=== PATIENT | female | born 1955 | race Caucasian/White ===

== ENCOUNTER 2019-02-23 12:53 | Outpatient (REF) | payer OTHER, SELFPAY ==
--- NOTE | 2019-02-23 12:15 | PAPFT_PTH ---
PATIENT: lGadys Vyas LOC: NCN #:[id number] AGE/SX: 63/F ROOM: RE02/23/[address]: Denise Nugent : 1955 BED: DIS: 02/23/2019 SPEC #: [id number] RECD: 02/24/19 12:51 STATUS: FERCHO CANO #: [id number] SANDRITA: 02/23/19 12:[address]: Denise Nugent DEPT: [facility] [place] Cytology RECD BY: Symone Tapia Tissues: 1 - CX/ENDOCX FOR PAP SMEARS Procedures: PAP THIN PREP/UVM Screening HPV DNA PROBE Comments: [id number]
[2019-02-23 22:25] LABS: Hemoglobin A1C 6.1 % (4.5-6.2)
[2019-02-23 22:34] LABS: ALT 53 U/L (12-78); AST 43 U/L (15-37); Alkaline Phosphatase 103 U/L (46-116); Anion Gap 11.1 mmol/L (3-11); BUN 13 mg/dL (7-18); CO2 27.9 mmol/L (21.0-32.0); CREATININE 0.84 mg/dL (0.55-1.02); Chloride 103 mmol/L (98-107); Cholesterol 315 mg/dL (50-200); Glucose 89 mg/dL (70-100); HDL Cholesterol 67 mg/dL (40-60); LDL CHOLESTEROL 216 mg/dL (<100); Potassium 3.8 mmol/L (3.5-5.1); Sodium 142 mmol/L (136-145); Total Protein 7.7 g/dL (6.4-8.2); Triglyceride 93 mg/dL (30-150)
[2019-02-23 22:40] LABS: Calcium 9.1 mg/dL (8.5-10.1)
== END 2019-02-23 13:13 ==
LOC: NCHCN 12:53
PROVIDERS: PCP Nurse Practitioner Family; Visit Provider Nurse Practitioner Family
DX: R73.01 Impaired fasting glucose (principal); F41.9 Anxiety disorder, unspecified; R07.9 Chest pain, unspecified; Z00.00 Encounter for general adult medical examination without abnormal findings; I10 Essential (primary) hypertension; R60.9 Edema, unspecified; R20.2 Paresthesia of skin; R82.90 Unspecified abnormal findings in urine; Z12.4 Encounter for screening for malignant neoplasm of cervix; Z11.51 Encounter for screening for human papillomavirus (HPV); Z01.419 Encounter for gynecological examination (general) (routine) without abnormal findings
CPT/HCPCS: 80053; 80061; 83721; 88142; 83036; 87624

== ENCOUNTER 2019-04-13 09:01 | Outpatient (REF) | payer OTHER, SELFPAY ==
[2019-04-13 21:33] LABS: Anion Gap 8.9 mmol/L (3-11); BUN 11 mg/dL (7-18); CO2 27.1 mmol/L (21.0-32.0); CREATININE 0.73 mg/dL (0.55-1.02); Calcium 8.8 mg/dL (8.5-10.1); Calculated LDL 101 mg/dL; Chloride 108 mmol/L (98-107); Cholesterol 182 mg/dL (50-200); Glucose 98 mg/dL (70-100); HDL Cholesterol 66 mg/dL (40-60); Potassium 4.1 mmol/L (3.5-5.1); Sodium 144 mmol/L (136-145); Triglyceride 77 mg/dL (30-150)
[2019-04-14 14:28] LABS: ALT 65 U/L (12-78); AST 37 U/L (15-37); Alkaline Phosphatase 98 U/L (46-116); Bilirubin, Direct 0.24 mg/dL (0.00-0.20); Bilirubin, Total 1.2 mg/dL (0.2-1.0); Total Protein 7.3 g/dL (6.4-8.2)
== END 2019-04-13 09:21 ==
LOC: NCHCN 09:01
PROVIDERS: PCP Nurse Practitioner Family; Visit Provider Nurse Practitioner Family
DX: Z00.00 Encounter for general adult medical examination without abnormal findings (principal); I10 Essential (primary) hypertension; E78.5 Hyperlipidemia, unspecified; R73.01 Impaired fasting glucose; E88.81 Metabolic syndrome and other insulin resistance
CPT/HCPCS: 80048; 80061; 80076; 83721

== ENCOUNTER 2019-05-16 23:05 | Outpatient (REF) | payer OTHER, SELFPAY ==
[2019-05-16 22:39] LABS: ALT 50 U/L (12-78); AST 26 U/L (15-37); Albumin 3.9 g/dL (3.4-5.0); Alkaline Phosphatase 110 U/L (46-116); Bilirubin, Direct 0.21 mg/dL (0.00-0.20); Bilirubin, Total 0.9 mg/dL (0.2-1.0); Total Protein 7.1 g/dL (6.4-8.2)
== END 2019-05-16 23:25 ==
LOC: NCHCN 23:05
PROVIDERS: PCP Nurse Practitioner Family; Visit Provider Nurse Practitioner Family
DX: R94.5 Abnormal results of liver function studies (principal)
CPT/HCPCS: 80076

== ENCOUNTER 2019-05-29 00:39 | Outpatient (CLI) | payer OTHER, SELFPAY ==
--- NOTE | 2019-05-29 07:44 | DI.MAMMO_ITS ---
SYMPTOM/DIAGNOSIS: SCREENING Z13.9 MAMMOGRAM: Mammograms were interpreted according to the usual protocol including computer analysis with CAD system, tomosynthesis and C view imaging. The breasts are of moderate density with fairly symmetrical distribution of fibroglandular tissue. No dominant mass or clumped microcalcification is identified in either breast. Vaguely nodular areas of asymmetric density are seen in the upper outer quadrant of each breast and appear unchanged in comparison with multiple previous studies including April 2018. No new mass or clumped microcalcification is seen. CONCLUSION: No specific evidence of malignancy at this time. Routine screening examinations are suggested at yearly intervals in this age group according to the ACS/ACR guidelines. Category 1, breast density category B. MQSA ASSESSMENT OF FINDINGS: Negative. Category 1. Patient will receive a letter notifying them of these results. BI-RADS category B. There are scattered areas of fibroglandular density.
== END 2019-05-29 00:59 ==
PROVIDERS: PCP Nurse Practitioner Family; Visit Provider Nurse Practitioner Family
DX: Z12.31 Encounter for screening mammogram for malignant neoplasm of breast (principal)
CPT/HCPCS: 77063; 77067

== ENCOUNTER 2019-08-22 09:31 | Outpatient (REF) | payer OTHER, SELFPAY ==
[2019-08-22 12:23] LABS: Abs Immature Grans 0.01 k/cumm (0.0-0.09); Absolute Basophil Count 0.02 k/cumm (0.0-0.2); Absolute Eosinophil Count 0.12 k/cumm (0.0-0.7); Absolute Lymphocyte Count 1.44 k/cumm (1.2-3.4); Absolute Monocyte Count 0.31 k/cumm (0.11-0.7); Absolute Neutrophil Count 2.92 k/cumm (1.2-6.7); Basophils % 0.4; Eosinophils % 2.5; HCT 42.9 % (36.0-46.0); HGB 13.8 g/dL (12.0-15.5); Immature Grans % 0.2; Lymphocytes % 29.9; Mean Corp. HGB Concentration 32.2 g/dL (32.0-36.0); Mean Corpuscular Hemoglobin 28.8 pg (27.0-33.0); Mean Corpuscular Volume 89.6 fL (80-95); Mean Platelet Volume 9.5 fL (8.0-11.0); Monocytes % 6.4; Neutrophils % 60.6; Platelet Count 309 x1000/uL (130-400); RBC 4.79 m/cumm (4.00-5.20); RBC Distribution Width 13.7 % (11.7-14.6); White Blood Cell Count 4.82 k/cumm (4.4-10.8)
[2019-08-22 12:57] LABS: ALT 39 U/L (14-59); AST 21 U/L (15-37); Albumin 3.8 g/dL (3.4-5.0); Alkaline Phosphatase 104 U/L (46-116); BUN 12 mg/dL (7-18); Bilirubin, Total 1.1 mg/dL (0.2-1.0); CREATININE 0.73 mg/dL (0.55-1.02); Calcium 9.2 mg/dL (8.5-10.1); Chloride 108 mmol/L (98-107); Glucose 92 mg/dL (70-100); Magnesium 2.1 mg/dL (1.8-2.4); Potassium 3.8 mmol/L (3.5-5.1); Sodium 145 mmol/L (136-145); TSH (W/Ref FT4) 0.66 uIU/mL (0.36-3.74); Total Protein 7.4 g/dL (6.4-8.2)
== END 2019-08-22 09:51 ==
LOC: NCHCN 09:31
PROVIDERS: PCP Nurse Practitioner Family; Visit Provider Nurse Practitioner Family
DX: R73.01 Impaired fasting glucose (principal); R94.5 Abnormal results of liver function studies; E88.81 Metabolic syndrome and other insulin resistance; R07.9 Chest pain, unspecified; R82.90 Unspecified abnormal findings in urine; F41.9 Anxiety disorder, unspecified; R51 Headache
CPT/HCPCS: 80053; 83735; 84443; 85025

== ENCOUNTER 2019-08-25 04:39 | Outpatient (CLI) | payer OTHER, SELFPAY | END 2019-08-25 04:59 | PROVIDERS: PCP Nurse Practitioner Family; Visit Provider Nurse Practitioner Family | DX: R07.9 Chest pain, unspecified (principal); I47.1 Supraventricular tachycardia; I49.1 Atrial premature depolarization; I49.3 Ventricular premature depolarization | CPT/HCPCS: 93225 ==

== ENCOUNTER 2019-08-28 11:25 | Outpatient (CLI) | payer OTHER, SELFPAY ==
--- NOTE | 2019-08-28 12:00 | W.HOLTRPT ---
Date of service: 08/28/19 Time of Service: 12:00 Holter Monitor Report Holter Monitor Note: There is a 40-hour Holter monitor ordered for the indication of chest pain. ?The patient was in normal sinus rhythm for the majority of the recording time. ?Patient's mean heart rate was 72 bpm with a minimum of 54 and a maximum of 115. ?The patient had 2 episodes of supraventricular tachycardia with the longest lasting 3 beats. The patient had a rare (less than 1%) PACs ?Patient had no episodes of ventricular tachycardia. The patient had rare (less than 1%) single ventricular ectopic beats. ?The patient had no episodes of atrial fibrillation, no pauses during 3 seconds and no evidence of high degree heart block. ?Patient recorded events were associated with sinus rhythm, sinus tachycardia and occasional PAC.
== END 2019-08-28 11:45 ==
PROVIDERS: PCP Nurse Practitioner Family; Visit Provider Nurse Practitioner Family
DX: R07.9 Chest pain, unspecified (principal); I47.1 Supraventricular tachycardia; I49.1 Atrial premature depolarization; I49.3 Ventricular premature depolarization
CPT/HCPCS: 93226

== ENCOUNTER 2019-12-15 06:50 | Emergency (ER) | payer OTHER, SELFPAY ==
[2019-12-15 06:57] VITALS: BP 176/83; PULSE 81; TEMP 36.6; O2SAT 98
--- NOTE | 2019-12-15 08:00 | DI.RAD_ITS ---
EXAM: XR KNEE RT 3V AP,LAT,DAVID INDICATION: pain in anterior knee. COMPARISON: No exams were available for comparison TECHNIQUE: 2D digital imaging was performed. FINDINGS: The joint spaces are well maintained. There is mild spurring at the tibial spines and anterior aspect of the patella. There is some spurring at the quadriceps insertion on the patella and tibial tuberc le. No joint effusion is visible. IMPRESSION: Minimal degenerative changes. DATA REPOSITORY: RADIATION DOSE DELIVERED:
--- NOTE | 2019-12-15 08:09 | ED.GENADUL_ITS ---
Discharge Plan Disposition Patient Disposition: HOME Condition: Stable Discharge Details Chief Complaint: Nk/Back Pain Clinical Impression: Knee pain, right Primary Care Provider: Denise Nugent ED Provider: Tyrone Gatica Home Meds and New Rx's Prescriptions: Continued atorvastatin 40 MG tablet 40 mg PO DAILY RF: 0 metformin 500 MG tablet 500 mg PO DAILY RF: 0 triamcinolone acetonide 15 GM cream 15 gm Topical BID RF: 0 omeprazole 20 mg Capsule,Delayed Release(Dr/Ec) 20 mg PO BID RF: 0 propranolol 20 mg Tablet 20 mg PO BID RF: 0 Discharge Instructions Instructions: Knee Pain (ED) Additional Instructions: call orthopedics for an appointment you can take 1000mg tylenol and 600mg ibuprofen every 6 hours for pain try to keep the leg elevated when sitting down or laying down if you have fevers, redness or warmth of the knee return to the emergency department Referrals: Shoaib Merlos MD [ [facility] STAFF PHYSICIAN] - Medical Decision Making 64 yo female with hx of dm, hld, comes in with 2 weeks of worsening nontraumatic right knee pain. She states she has had intermittent pain in her knee for years with some numbness but worsened over 2 weeks. No fevers, chills, redness. She has no significant swelling of the knee on exam with full rom. Has pain with palpation to the anterior right knee without palpable or visible deformity and n o calf tenderness. Suspect arthritis, no indications to suggest septic joint. No evidence to suggest dvt. Will xray to eval for djd, unlikely fx. no fracture on my read, question effusion. Will have nursing apply arturo wrap, refer to ortho and return precautions given Differential Diagnosis Differential Diagnosis: osteoarthritis, djd, sciatica Imaging Data Radiologic Study: Attestation: I personally reviewed and interpreted this imaging study as follows: Imaging: X-Ray My impression: no acute findings, no fracture HPI General Mode of arrival: ambulatory . Date/Time Provider Initiated Documentation: 12/15/19 07:30 . Limitations to Documentation: no limitations . Information obtained by: patient . History of Present Illness 64 year old F presents to the emergency department with the chief complaint of right knee pain, described as moderate, Quality is described as aching, and is localized to the lower extremity. Patient started experiencing this week(s) (2) and it has been constant. Patient did receive the following treatments prior to arrival, NSAID Related Data Home Medications Medication Instructions Recorded Confirmed atorvastatin 40 mg PO DAILY tab-cap 04/26/18 12/15/19 metformin 500 mg PO DAILY tab-cap 04/26/18 12/15/19 triamcinolone acetonide 15 gm TOPICAL BID script 04/26/18 12/15/19 omeprazole 20 mg PO BID 12/15/19 12/15/19 propranolol 20 mg PO BID 12/15/19 12/15/19 Allergies Allergy/AdvReac Type Severity Reaction Status Date / Time ranitidine HCl [From Zantac] Allergy Intermediate Skin Rash Unverified 12/15/19 07:02 General Stated Complaint: Orthopedic RICHARD: 3 Review of Systems All systems reviewed & are unremarkable except as noted in HPI and below Constitutional Constitutional: Denies chills and Denies fever(s) Integumentary/Breasts Skin/Breast: Denies rash PFSH Social History Smoking/Tobacco Use Status: Never Alcohol Intake: current Alcohol Intake frequency: holidays/special occasions only Drug use: Never Substance use type: does not use Do you feel safe at home: Yes Do you feel safe in your relationship?: Yes Exam Const General: no acute distress Orientation: alert HENMT Head: normal to inspection Ears: external ears normal General nose exam: external nose normal Mouth: moist mucous membranes Eyes General: appearance normal, both eyes and all related structures Neck Neck: normal visual inspection Resp Effort & Inspection: normal respiratory effort and able to speak in complete sentences Cardio Rate: regular rate Skin General skin exam: no rashes or lesions noted Neuro General: alert and oriented x3 Extrem General: normal to inspection Psych Mental Status: mental status grossly normal Course Vital Signs Vital signs: Vital Signs Temperature 36.6 C 12/15/19 06:57 Pulse 81 12/15/19 06:57 Blood Pressure 176/83 H 12/15/19 06:57 Pulse Oximetry 98 12/15/19 06:57 Temperature 36.6 C 12/15/19 06:57 Temperature Source Temporal Artery Scan 12/15/19 06:57 Pulse 81 12/15/19 06:57 Respiratory Effort Non-Labored 12/15/19 07:02 Blood Pressure 176/83 H 12/15/19 06:57 Pulse Oximetry 98 12/15/19 06:57 Oxygen Delivery Method Room Air 12/15/19 06:57 Oxygen Flow Rate 0 12/15/19 06:57 Pain Level 10 12/15/19 06:57
[2019-12-15] MEDS: Acetaminophen 500 MG TAB 1000 MG PO (08:10)
[2019-12-15 08:55] VITALS: BP 176/83; PULSE 81; TEMP 36.6; O2SAT 98
== END 2019-12-15 08:57 | disposition home or self-care (01) ==
PROVIDERS: Emergency Provider Emergency Medicine; PCP Nurse Practitioner Family
DX: M25.561 Pain in right knee (principal); E11.9 Type 2 diabetes mellitus without complications; Z79.84 Long term (current) use of oral hypoglycemic drugs
CPT/HCPCS: 73562; 99283

== ENCOUNTER 2020-02-27 09:37 | Outpatient (REF) | payer OTHER, SELFPAY ==
[2020-02-27 22:01] LABS: ALT 44 U/L (14-59); AST 28 U/L (15-37); Albumin 3.9 g/dL (3.4-5.0); Alkaline Phosphatase 113 U/L (46-116); Bilirubin, Direct 0.23 mg/dL (0.00-0.20); Bilirubin, Total 1.2 mg/dL (0.2-1.0); Total Protein 7.4 g/dL (6.4-8.2)
== END 2020-02-27 09:57 ==
LOC: NCHCN 09:37
PROVIDERS: PCP Nurse Practitioner Family; Visit Provider Nurse Practitioner Family
DX: R07.9 Chest pain, unspecified (principal); R94.5 Abnormal results of liver function studies; E78.5 Hyperlipidemia, unspecified; I10 Essential (primary) hypertension; E88.81 Metabolic syndrome and other insulin resistance; F41.9 Anxiety disorder, unspecified; R51 Headache; M25.561 Pain in right knee
CPT/HCPCS: 80076

== ENCOUNTER 2020-04-22 00:46 | Outpatient (CLI) | payer OTHER, SELFPAY ==
--- NOTE | 2020-04-22 08:30 | DI.MRI_ITS ---
EXAM: MR LUMBAR SPINE WO CLINICAL HISTORY: LBP, L5 RADICULOPATHY, DEGENERATIVE DISC DISEASE, M51.36. TECHNIQUE: Multiplanar multisequence MRI was performed. COMPARISON: MR MRI - LUMBAR SPINE WO CONTRAST from 04/17/2010 CR XR KNEE RT 3V AP,LAT,DAVID from 12/15/2019 FINDINGS: The T12-L1 and L1-2 levels are unremarkable. There is mild disc bulging at L2-3. There is bulging of the L3-4 disc greater laterally, causing bilateral mild bilateral neural foramina l narrowing. There are also there also mild facet degenerative changes and mild ligamentous hypertro phy. There is no significant central canal stenosis. At L4-5, there is a stable appearing small central disc protrusion. There is overall moderate concen tric disc bulging. There are moderate facet degenerative changes as well as ligamentous hypertrophy which combine with the disc bulging to produce a mild to moderate degree of central canal stenosis. There is mild bilateral neural foraminal narrowing. There is mild bulging of the L5-S1 disc. There are moderate facet degenerative changes and no signif icant central canal stenosis. There is mild left neural foraminal narrowing. The marrow signal appears normal. The aorta is normal in diameter. IMPRESSION: Degenerative disc changes and facet degenerative changes, greatest at L4-5. There is [id number] e central canal stenosis and mild neural foraminal narrowing. The degenerative changes have increase d mildly since the previous exam. DATA REPOSITORY:
== END 2020-04-22 01:06 ==
PROVIDERS: PCP Nurse Practitioner Family; Visit Provider Student in an Organized Health Care Education/Training Program
DX: M54.5 Low back pain (principal); M54.16 Radiculopathy, lumbar region; M51.36 Other intervertebral disc degeneration, lumbar region; M47.27 Other spondylosis with radiculopathy, lumbosacral region
CPT/HCPCS: 72148

== ENCOUNTER 2020-08-26 16:53 | Outpatient (REF) | payer OTHER, SELFPAY ==
[2020-08-26 21:44] LABS: ALT 34 U/L (14-59); AST 21 U/L (15-37); Albumin 3.7 g/dL (3.4-5.0); Alkaline Phosphatase 108 U/L (46-116); BUN 14 mg/dL (7-18); CREATININE 0.67 mg/dL (0.55-1.02); Calcium 8.8 mg/dL (8.5-10.1); Chloride 107 mmol/L (98-107); Glucose 105 mg/dL (74-106); Potassium 4.2 mmol/L (3.5-5.1); Sodium 143 mmol/L (136-145); Total Protein 6.8 g/dL (6.4-8.2)
== END 2020-08-26 17:13 ==
LOC: NCHCN 16:53
PROVIDERS: PCP Nurse Practitioner Family; Visit Provider Nurse Practitioner Family
DX: L30.4 Erythema intertrigo (principal); M25.561 Pain in right knee; R07.9 Chest pain, unspecified; R51.9 Headache, unspecified; F41.9 Anxiety disorder, unspecified; E88.81 Metabolic syndrome and other insulin resistance; I10 Essential (primary) hypertension; R73.03 Prediabetes
CPT/HCPCS: 80053

== ENCOUNTER 2021-05-01 01:31 | Outpatient (CLI) | payer OTHER, SELFPAY ==
--- NOTE | 2021-05-01 | DI.MAMMO_ITS ---
Exam(s) MAMMO SCREENING EXAM: MAMMO SCREENING CLINICAL HISTORY: SCREENING, Z12.31. TECHNIQUE: Bilateral full field digital CC and MLO mammographic images were obtained with 3D tomosyn thesis and utilizing computer aided detection (CAD). COMPARISON: Prior mammograms dating back to 2011, the most recent being May 1019. FINDINGS: Asymmetric density in the left breast is unchanged from prior studies. Microcalcification in medial aspect of left breast remains stable. There are no new spiculated masses nor malignant appearing microcalcification groups. There is no significant architectural distortion nor skin thickening-retraction. IMPRESSION: Stable benign findings. No radiographic evidence of malignancy. BI-RADS Category 2 - Benign Findings Breast Density - Category B - Scattered areas of fibroglandular density Breast density Category C or D implies that the patient has dense breast tissue. Dense breast tissue can make it harder to find cancer on a mammogram. Dense breast tissue is also associated with an incr eased risk of breast cancer. This information about the result of the mammogram report was provided to the patient to raise their awareness. Use this report when you speak with the patient about their risks for breast cancer, which includes their family history. At that time, you may recommend additional screening tests (Ultrasoun d or MRI) as these tests may add significant information. A negative radiographic report should not delay biopsy if a dominant or clinically suspicious mass is present. Up to ten percent of cancers are not identified on mammography. A negative report may reinforce clinical impression. Adenosis and dense breasts may obscure an underlying neoplasm. False positive reports average 6 to 10%. Patient will receive a letter notifying them of these results.
== END 2021-05-01 01:51 ==
PROVIDERS: PCP Nurse Practitioner Family; Visit Provider Nurse Practitioner Family
DX: Z12.31 Encounter for screening mammogram for malignant neoplasm of breast (principal); R92.8 Other abnormal and inconclusive findings on diagnostic imaging of breast
CPT/HCPCS: 77063; 77067

== ENCOUNTER 2021-06-30 08:48 | Outpatient (REF) | payer OTHER, SELFPAY ==
[2021-07-01 00:19] LABS: COVID-19 RT-PCR UVMMC Result Negative (Negative)
== END 2021-06-30 08:49 | disposition home or self-care (01) ==
LOC: NCHCN 08:48
PROVIDERS: PCP Nurse Practitioner Family; Referring Provider Nurse Practitioner Family; Visit Provider Nurse Practitioner Family
DX: Z20.822 Contact with and (suspected) exposure to COVID-19 (principal)
CPT/HCPCS: U0003

== ENCOUNTER 2021-07-15 09:18 | Outpatient (REF) | payer OTHER, SELFPAY ==
[2021-07-15 15:03] LABS: ALT 32 U/L (14-59); AST 20 U/L (15-37); Albumin 3.6 g/dL (3.4-5.0); Alkaline Phosphatase 110 U/L (46-116); Anion Gap 7.6 mmol/L (3-11); BUN 10 mg/dL (7-18); CO2 29.4 mmol/L (21.0-32.0); CREATININE 0.8 mg/dL (0.55-1.02); Calcium 8.9 mg/dL (8.5-10.1); Chloride 108 mmol/L (98-107); Glucose 104 mg/dL (74-106); Magnesium 2.1 mg/dL (1.8-2.4); Sodium 145 mmol/L (136-145); Vitamin B12 389 pg/mL (193-986)
== END 2021-07-15 09:19 | disposition home or self-care (01) ==
LOC: NCHCN 09:18
PROVIDERS: PCP Nurse Practitioner Family; Visit Provider Nurse Practitioner Family
DX: E78.5 Hyperlipidemia, unspecified (principal); E88.81 Metabolic syndrome and other insulin resistance; Z00.00 Encounter for general adult medical examination without abnormal findings; R82.90 Unspecified abnormal findings in urine; L30.4 Erythema intertrigo
CPT/HCPCS: 80053; 82607; 83735

== ENCOUNTER 2021-08-21 11:57 | Outpatient (REF) | payer OTHER, SELFPAY ==
--- NOTE | 2021-08-21 10:30 | PAPFT_PTH ---
PATIENT: Gladys Vyas LOC: [facility]#:[id number] AGE/SX: 65/F ROOM: RE08/21/[address]: Denise Nugent : 1955 BED: DIS: 08/21/2021 SPEC #: [id number] RECD: 08/22/21 13:05 STATUS: FERCHO REAlon #: [id number] SANDRITA: 08/21/21 10:[address]: Denise Nugent [facility]PT[facility] Cytology RECD BY: Symone Tapia Tissues: 1 - CX/ENDOCX FOR PAP SMEARS Procedures: PAP THIN PREP/UVM Screening HPV DNA PROBE Comments: [id number]
[2021-08-21 21:50] LABS: Abs Immature Grans 0.01 10^3/uL (0.0-0.06); Absolute Basophil Count 0.03 10^3/uL (0.0-0.2); Absolute Eosinophil Count 0.17 10^3/uL (0.0-0.7); Absolute Lymphocyte Count 1.93 10^3/uL (1.2-3.4); Absolute Monocyte Count 0.39 10^3/uL (0.1-0.8); Absolute Neutrophil Count 2.52 10^3/uL (1.2-6.7); Basophils % 0.6; Eosinophils % 3.4; HCT 41.7 % (36.0-46.0); HGB 13.5 g/dL (11.2-15.7); Immature Grans % 0.2; Lymphocytes % 38.2; MCH 29.2 pg (27.0-33.0); MCHC 32.4 % (32.0-36.0); MCV 90.1 fL (80-95); Monocytes % 7.7; Neutrophils % 49.9; Nucleated RBC 0 %; Platelet Count 319 10^3/uL (130-400); RBC 4.63 10^6/uL (3.93-5.22); RDW 13.2 % (11.7-14.6); RDW-SD 43.8 fL; WBC 5.05 10^3/uL (4.4-10.8)
[2021-08-21 22:05] LABS: TSH (W/Ref FT4) 1.15 uIU/mL (0.36-3.74)
== END 2021-08-21 11:58 | disposition home or self-care (01) ==
LOC: NCHCN 11:57
PROVIDERS: PCP Nurse Practitioner Family; Visit Provider Nurse Practitioner Family
DX: N95.0 Postmenopausal bleeding (principal); Z12.4 Encounter for screening for malignant neoplasm of cervix; Z11.51 Encounter for screening for human papillomavirus (HPV)
CPT/HCPCS: 88142; 84443; 85025; 87624

== ENCOUNTER 2021-08-25 10:55 | Outpatient (REF) | payer OTHER, SELFPAY ==
[2021-08-26 01:13] LABS: COVID-19 RT-PCR UVMMC Result Negative (Negative)
== END 2021-08-25 10:56 | disposition home or self-care (01) ==
LOC: NCHCN 10:55
PROVIDERS: PCP Nurse Practitioner Family; Visit Provider Nurse Practitioner Family
DX: Z20.822 Contact with and (suspected) exposure to COVID-19 (principal)
CPT/HCPCS: U0003

== ENCOUNTER 2021-09-05 13:17 | Outpatient (REF) | payer OTHER, SELFPAY ==
[2021-09-06 02:10] LABS: COVID-19 RT-PCR UVMMC Result Negative (Negative)
== END 2021-09-05 13:18 | disposition home or self-care (01) ==
LOC: NCHCN 13:17
PROVIDERS: PCP Nurse Practitioner Family; Visit Provider Nurse Practitioner Family
DX: Z20.822 Contact with and (suspected) exposure to COVID-19 (principal)
CPT/HCPCS: U0003

== ENCOUNTER 2021-10-09 09:09 | Outpatient (REF) | payer OTHER, SELFPAY ==
[2021-10-09 14:56] LABS: CREATININE 0.7 mg/dL (0.55-1.02)
== END 2021-10-09 09:10 | disposition home or self-care (01) ==
LOC: NCHCN 09:09
PROVIDERS: PCP Nurse Practitioner Family; Visit Provider Nurse Practitioner Family
DX: E78.5 Hyperlipidemia, unspecified (principal); K30 Functional dyspepsia; R07.9 Chest pain, unspecified
CPT/HCPCS: 82565

== ENCOUNTER 2021-10-15 00:26 | Outpatient (CLI) | payer OTHER, SELFPAY ==
[2021-10-15] MEDS: Normal Saline Flush 10 ML SYR IVP (08:11)
[2021-10-15] MEDS: Gadoterate meglumine 20 ML VIAL IVP (08:12)
--- NOTE | 2021-10-15 09:10 | DI.MRI_ITS ---
Exam(s) MR PELVIS WO/W EXAM: MR PELVIS WO/W CLINICAL HISTORY: POSTMENOPAUSAL BLEEDING,N95.9,UTERINE MASS,N94.89 COMPARISON: No exams were available for comparison FINDINGS: There is no free fluid in the pelvis. Uterus is anteverted and measures approximately 8 cm length by 2.5 cm AP by 5.6 cm wide. There is a 2.5 x 1.8 by 2.5 cm fibroid in the right-side of the uterus. Endometrial cavity is deviat ed towards the left side by the uterine fibroid but does not appear significantly thickened. No left adnexal masses. No obvious right adnexal masses. There is no intrapelvic nor inguinal adenopathy. No obvious abnormality in the urinary bladder. No bladder diverticuli. No osseous lesions in the sacrum and hips nor in the pelvic bones. Sacroiliac joints appear unremark able. No findings evident in the sacral canal. There appears to be some thickening of rectum anterior to the lower sacrum, possibly significant no a denopathy in the adjacent fat. IMPRESSION: 1. 2.5 by 2.5 by 1.8 cm right-sided uterine fibroid. This deviates the endometrial cavity towards th e left side. Endometrial thickness is upper normal. No abnormal adnexal masses. 2. There is some thickening of the wall of the rectum anterior to the lower sacrum, possibly signific ant. Follow-up colonoscopy recommended. 3. No intrapelvic nor inguinal adenopathy. 4. No significant osseous lesions evident in the pelvis and sacral canal. DATA REPOSITORY:
== END 2021-10-15 00:46 ==
LOC: DI 00:27
PROVIDERS: PCP Nurse Practitioner Family; Visit Provider Nurse Practitioner Family
DX: N95.0 Postmenopausal bleeding (principal); N94.89 Other specified conditions associated with female genital organs and menstrual cycle; D25.9 Leiomyoma of uterus, unspecified
CPT/HCPCS: 72197

== ENCOUNTER 2021-11-06 16:12 | Outpatient (REF) | payer OTHER, SELFPAY ==
[2021-11-06 15:07] LABS: BUN 14 mg/dL (7-18); CREATININE 0.8 mg/dL (0.55-1.02); Calcium 9.3 mg/dL (8.5-10.1); Chloride 105 mmol/L (98-107); Glucose 113 mg/dL (74-106); Potassium 4.4 mmol/L (3.5-5.1); Sodium 141 mmol/L (136-145)
== END 2021-11-06 16:13 | disposition home or self-care (01) ==
LOC: NCHCN 16:12
PROVIDERS: PCP Nurse Practitioner Family; Visit Provider Nurse Practitioner Family
DX: I10 Essential (primary) hypertension (principal); R73.03 Prediabetes; R94.5 Abnormal results of liver function studies
CPT/HCPCS: 80048

== ENCOUNTER → 2022-07-06 02:52 | Outpatient (CLI) | payer OTHER, SELFPAY ==
--- NOTE | 2022-07-06 | DI.MAMMO_ITS ---
Exam(s) MAMMO SCREENING EXAM: MAMMO SCREENING CLINICAL HISTORY: SCREENING, Z12.31 TECHNIQUE: Mammograms were interpreted according to the usual protocol including computer analysis w [employer] CAD system, tomosynthesis and C-view imaging. COMPARISON: 2011 through 2020 FINDINGS: The breasts are composed of scattered fibroglandular densities, Breast Density category B. No suspicious masses or suspicious microcalcifications are seen. No skin thickening or abnormal axillary lymph nodes are seen. There has been no significant change from prior exams. IMPRESSION: BI-RADS Category 1, Negative mammogram Yearly screening mammography is recommended. Breast Density - Category B, scattered fibroglandular densities. A negative radiographic report should not delay biopsy if a dominant or clinically suspicious mass is present. Up to ten percent of cancers are not identified on mammography. A negative report may reinforce clinical impression. Adenosis and dense breasts may obscure an underlying neoplasm. False positive reports average 6 to 10%. Patient will receive a letter notifying them of these results.
== END ==
PROVIDERS: PCP Nurse Practitioner Family; Visit Provider Nurse Practitioner Family
DX: Z12.31 Encounter for screening mammogram for malignant neoplasm of breast (principal)
CPT/HCPCS: 77063; 77067

== ENCOUNTER 2022-11-17 13:26 | Outpatient (REF) | payer BC, SELFPAY ==
[2022-11-17 15:55] LABS: Hemoglobin A1C 6.2 % (<5.7)
[2022-11-17 16:33] LABS: ALT 26 U/L (14-59); AST 17 U/L (15-37); Albumin 3.8 g/dL (3.4-5.0); Alkaline Phosphatase 116 U/L (46-116); Anion Gap 7.4 mmol/L (3-11); BUN 10 mg/dL (7-18); Bilirubin, Total 1.1 mg/dL (0.2-1.0); CO2 30.6 mmol/L (21.0-32.0); CREATININE 0.8 mg/dL (0.55-1.02); Calcium 9.3 mg/dL (8.5-10.1); Chloride 107 mmol/L (98-107); Estimated GFR 81.72 (mL/min/1.73m2); Glucose 118 mg/dL (74-106); Magnesium 2.1 mg/dL (1.8-2.4); Potassium 3.8 mmol/L (3.5-5.1); Sodium 145 mmol/L (136-145); Total Protein 7.2 g/dL (6.4-8.2); Vitamin B12 372 pg/mL (193-986)
== END 2022-11-17 13:27 | disposition home or self-care (01) ==
LOC: NCHCN 13:26
PROVIDERS: PCP Nurse Practitioner Family; Visit Provider Nurse Practitioner Family
DX: I10 Essential (primary) hypertension (principal); F41.8 Other specified anxiety disorders; E78.5 Hyperlipidemia, unspecified; E88.81 Metabolic syndrome and other insulin resistance; R94.5 Abnormal results of liver function studies; R73.03 Prediabetes; K30 Functional dyspepsia; R51.9 Headache, unspecified; Z79.899 Other long term (current) drug therapy
CPT/HCPCS: 80053; 82607; 83036; 83735

== ENCOUNTER 2023-01-01 00:09 | Outpatient (CLI) | payer BC, SELFPAY ==
--- NOTE | 2023-01-01 | DI.DEXA_ITS ---
Exam(s) XR DEXA BONE DENSITY W/WO SHEELA EXAM: XR DEXA BONE DENSITY W/WO SHEELA CLINICAL HISTORY: ASYMPTOMATIC POSTMENOPAUSAL STATUS, Z78.0 TECHNIQUE: COMPARISON: No exams were available for comparison FINDINGS: Lateral Spine Image: Unremarkable. No compression deformities identified. Left hip: Total T-Score: -0.2 Total Z-Score: 1.1 Note is made of osteopenia in the femoral neck with a T-score of -1.1. T- and Z-scores: Within normal limits. Lumbar Spine: Total T-Score: 0.9 Total Z-Score: 2.7 T- and Z-scores: Within normal limits. IMPRESSION: No evidence of osteoporosis.
== END 2023-01-01 00:29 ==
LOC: DI 00:09
PROVIDERS: PCP Nurse Practitioner Family; Visit Provider Nurse Practitioner Family
DX: M85.88 Other specified disorders of bone density and structure, other site (principal); Z78.0 Asymptomatic menopausal state
CPT/HCPCS: 77080

== ENCOUNTER 2023-05-10 06:59 | Day surgery (SDC) | payer BC, SELFPAY ==
--- NOTE | 2023-05-09 23:07 | W.COLOREPORT ---
Date of service: 05/10/23 Time of Service: 08:59 Colonoscopy Report Date of procedure: 05/10/23 Pre-op diagnosis general: Colorectal screening/constipation and occasional rectal bleeding Post-op diagnosis procedure note: other (Internal and external hemorrhoidal tags) Surgeon: Becky Clemente Anesthesia Type: General:No Airway Estimated blood loss (mL): 0 Pathology: none sent Complications: None Disposition: same day Prep: Miralax/Dulcolax Retraction Time: 10 Procedure Description: After informed consent was obtained the patient was taken to the procedure room and placed in a left decubitous position. Monitors were applied and a time out was done. The patients name, date of , procedure, allergies to medications and metal in their body was reviewed. The patient was then sedated. Once sedated and comfortable a rectal exam was done. External exam external hemorrhoidal tags. internal exam revealed a normal sphincter tone and no palpable masses. The scope was then introduced and retrofelexed. internal hemorrhoidal tags were identified. The scope was then advanced to the cecum with some difficulty. We did have to use sigmoid pressure to advance the scope. The colon is very floppy and redundant. The TI and appendiceal orifice were identified. The prep was BBPS 3 in all segments for a total of 9. The scope was then slowly retracted over 10 minutes back into the rectum. There are no polyps, AVMs, or diverticula identified today. The colon exhibits normal muscosa and vascular pattern. The scope was removed and the patient was woken up and taken back to Same day surgery in stable condition. The patient tolerated the procedure well and there were no immediate complications. Follow up: The patient should follow up in 10 years unless they develop changes in bowel habits or other new gastrointestinal complaints.
--- NOTE | 2023-05-09 23:08 | PDOC.DSDIS_ITS ---
Date of service: 05/10/23 Time of Service: 09:02 Discharge Plan Disposition Patient Disposition: Home Condition: Good Discharge Details Reason For Visit: Colon scope Attending Provider: Becky Clemente Primary Care Provider: Denise Nugent Home Meds and New Rx's Prescriptions: Continued atorvastatin 40 MG tablet 40 mg PO DAILY metformin 500 MG tablet 500 mg PO DAILY triamcinolone acetonide 15 GM cream 15 gm Topical BID hydrochlorothiazide 12.5 mg capsule 12.5 mg PO DAILY aspirin [Adult Aspirin Regimen] 81 mg tablet,delayed release (DR/EC) 81 mg PO DAILY lidocaine 5 % ointment 1 applic topical TID PRN omeprazole 20 mg Capsule,Delayed Release(Dr/Ec) 20 mg PO BID propranolol 20 mg Tablet 20 mg PO BID Discontinued bisacodyl [Dulcolax (bisacodyl)] 5 mg tablet,delayed release (DR/EC) 5 mg PO ONCE Qty: 4 0RF Rx Instructions: Take per colonoscopy instructions provided by ordering providers office polyethylene glycol 3350 17 gram/dose powder 17 g PO ONCE Qty: 238 0RF Rx Instructions: Take per colonoscopy instructions provided by ordering providers office Discharge Instructions Additional Instructions: DSU Colonoscopy Post- Op Instructions Instructions for Everyone who is given Anesthesia: For your safety, please do the following for the next twenty-four (24) hours: *Do Not operate a motor vehicle (car, truck, motorcycle, etc.) *Do Not drink alcoholic beverages or use any recreational drugs for the first 24 hours or while taking pain medications. The medications in your body may have a reaction that can be dangerous. *Do Not make any important decisions or sign any important papers. Findings: Normal Follow up: repeat in 10 years time 1. No lifting over 20 pounds or strenuous activity for the first 24 hours after your procedure. After 24 hours there are no restrictions on your activity but you may feel fatigued for a few days. 2. After you arrive home you may have a light meal and return to your normal diet as you can tolerate it without feeling sick to your stomach. 3. You may have a bloated, gaseous feeling in your belly (abdomen) after a colonoscopy. Passing gas and belching will help. Walking or lying down on your left side with your knees flexed may relieve the discomfort. Call the office at [phone] (Office) or [phone] (Hospital) right away if you notice any of the following: a.Vomiting of blood or ?coffee ground stools?. b.Rectal bleeding 1Tbsp, blood clots or continuous bleeding. c.Severe belly (abdominal) pain. d.A hard distended belly (abdomen) and an inability to pass gas. 4. Please don?t expect to have a normal BM (bowel movement) for 2-3 days after your procedure. 5. If there are questions regarding the findings of your procedure, please contact your doctor 6. If you are unable to contact your doctor with a problem, contact the hospital at [phone]. 7. Continue all your regular medications unless directed otherwise. I understand the above instructions and have no questions. Signature of Patient or Adult Escort Name of Responsible Adult Escort Signature of Nurse Date/Time Activity:: See above Diet:: See above Discharge Orders Discharge Orders: Discharge Order (Routine); Ordered 05/10/23 Ordered By: Becky Clemente DS: Diagnosis Discharge Diagnosis (1) Screening for colon cancer: Status: Acute Asessment and Plan: The patient is seen and examined after their colonoscopy.? The patient has been able to pass gas.? They are not having abdominal pain.? They have been able to tolerate liquids and a snack.? They do not have any nausea or vomiting.? They are not having any chest pain or shortness of breath.??? They are not having any rectal bleeding. Their vital signs have been stable-see nursing notes.? ? We discussed findings during their colonoscopy, and any biopsies that were done/polyps that were removed. The patient will be sent a letter with any biopsy results, and when to repeat the colonoscopy.-see discharge instructions.? ? Patient was given explicit instructions to follow-up regarding colonoscopy-refer to discharge instructions.? We reviewed resumption of medications.? Patient verbalized understanding and discharged in stable and satisfactory c ondition- See nursing notes.? (2) IBS (irritable bowel syndrome): Status: Chronic (3) Obesity: Status: Chronic (4) Dyspepsia: (5) GERD (gastroesophageal reflux disease): (6) Hyperlipidemia: (7) Hypertension: (8) Varicose veins of both lower extremities: (9) Morbid obesity: (10) Chronic constipation: Status: Acute (11) Rectal bleeding: Status: Acute
[2023-05-10 07:05] VITALS: BP 161/85; PULSE 91; RESP 20; TEMP 36.6; O2SAT 97
--- NOTE | 2023-05-10 08:07 | ANES.PREOP_ITS ---
General Info Date of Service Date Performed: 05/10/23 Height: 5 ft 2 in Weight: 97.9 kg Body Mass Index (BMI): 39.4 Surgical Procedure: Operation Date: 05/10/23 08:20 Proposed Procedure Side Surgeon jose elias Clemente, DO Meds Allergies and Home Medications Allergies Allergy/AdvReac Type Severity Reaction Status Date / Time ranitidine HCl [From Zantac] Allergy Intermediate Skin Rash Verified 05/10/23 07:25 Home Medication Medication Instructions Recorded atorvastatin 40 mg tablet 40 mg PO DAILY 04/26/18 metformin 500 mg tablet 500 mg PO DAILY 04/26/18 triamcinolone acetonide 0.1 % 15 gm topical BID 04/26/18 topical cream omeprazole 20 mg capsule,delayed 20 mg PO BID 12/15/19 release propranolol 20 mg tablet 20 mg PO BID 12/15/19 aspirin 81 mg tablet,delayed 81 mg PO DAILY 12/11/21 release (Adult Aspirin Regimen) hydrochlorothiazide 12.5 mg capsule 12.5 mg PO DAILY 12/11/21 lidocaine 5 % topical ointment 1 applic topical TID PRN 12/11/21 Current Visit Medications: Current Medications Generic Name Dose Route Start Last Admin Trade Name Freq PRN Reason Stop Dose Admin Hyoscyamine Sulfate 0.125 mg 05/10/23 10:02 Hyoscyamine 0.125 Mg Sl/Oral/Chew SL 06/09/23 10:01 DIRECTED PRN Ringer's Solution 1,000 mls @ 80 mls/hr 05/10/23 06:00 IV 05/10/23 23:59 INFUSION [facility] IV Miscellaneous Supplies 1 each 05/10/23 06:00 Iv Access IV 05/10/23 23:59 DIRECTED [facility] Ondansetron HCl 4 mg 05/10/23 10:02 Ondansetron 4 Mg/2 Ml Vial IVP 06/09/23 10:01 Q4H PRN PRN Nausea / Vomiting Sodium Chloride 0 ml 05/10/23 06:00 Normal Saline Flush 10 Ml Syr IV 05/10/23 23:59 PRN PRN Sodium Chloride 0 ml 05/10/23 06:00 Normal Saline 10 Ml Vial IJ 05/10/23 23:59 DIRECTED PRN Sterile Water 0 ml 05/10/23 06:00 Water,Injection,Sterile 10 Ml Vial IJ 05/10/23 23:59 DIRECTED PRN PFSH Active Problems Active Problems: Problem Status Onset Code Rectal bleeding K62.5 Chronic constipation K59.09 Screening for colon cancer Z12.11 IBS (irritable bowel syndrome) K58.9 Skin nodule R22.9 Obesity E66.9 Sebaceous cyst L72.3 Skin lesion L98.9 Medical History Medical History Anxiety and depression Bad odor of urine Carpal tunnel syndrome on both sides Chest pain Per pt. states she had it worked up-WNL Chronic bilateral low back pain without sciatica (06/01/18) Degenerative disc disease, lumbar Dyspepsia GERD (gastroesophageal reflux disease) Headache Hyperlipidemia Hypertension Internal derangement of right knee Intertrigo Knee pain, right Lymphadenopathy Meralgia paresthetica of both lower extremities (06/01/18) Metabolic syndrome Morbid obesity Paresthesia of both legs Peripheral edema Postmenopausal bleeding (11/15/13) Sciatica Skin mole Snoring SVT (supraventricular tachycardia) Tinnitus of both ears Trochanteric bursitis, right hip Uterine fibroid Varicose veins of both lower extremities Medical History Comments:: 05/10/23 pt reports she has difficulty laying flat and on her sides, pt normally sleeps in a recliner. Surgical History Surgical History History of cardiac catheterization 5+ years ago per pt came back WNL Tobacco Smoking/Tobacco Use Status: Never Alcohol Alcohol Intake: current Alcohol intake frequency: holidays/special occasions only Substance Use Substance use: Never Substance use type: does not use Vital Signs and Lab Results Vital Signs Most Recent Vital Signs in EMR: Most Recent Vital Signs Temp Pulse Resp BP Pulse Ox 36.6 C 91 H 20 161/85 H 97 05/10/23 07:05 05/10/23 07:05 05/10/23 07:05 05/10/23 07:05 05/10/23 07:05 Point of Care Results Point of Care Results: Finger Stick Blood Glucose 103 05/10/23 07:33 Lab Results Blood Type / Crossmatch: No Data to Display Complete Blood Count: No Data to Display Complete Metabolic Panel: No Data to Display Liver Function Panel: No Data to Display Coagulation Panel: No Data to Display Cardiac Panel: No Data to Display Arterial Blood Gas: No Data to Display Venous Blood Gas: No Data to Display Pancreas Panel: No Data to Display Thyroid Panel: 2 No Data to Display Infectious Disease: No Data to Display Blood Cultures: No Data to Display Toxicology Panel: No Data to Display Anesthesia Assessment and Plan Anesthesia History Personal History: No History of Anesthesia Complications Family History: No Family History of Anesthesia Complications Exercise Tolerance Exercise Tolerance: Metabolic Equivalents>4 Pertinent Negatives Pertinent Negatives: No Symptoms of GERD and No Major Pulmonary Symptoms or Complaints Cardiac & Pulmonary Exam Cardiac Exam: Normal S1/S2 Heart Sounds Pulmonary Exam: Clear Bilateral Breath Sounds Implantable Cardiac Device Does patient have a Pacemaker or an ICD?: No Airway Exam Known Difficult Airway: No Mallampati Class: 2 Mouth Opening: Normal (> 3cm) Thyromental Distance: Less than 3 cm Neck Range of Motion: Full ROM Neck Circumference: Normal Teeth Condition: Removable Dentures/Plates Upper and Removable Dentures/Plates Lower ASA Classification ASA Score: ASA 3 Emergency Case?: No NPO Status NPO Status: NPO Clears >2 hours, Solids >8 hours Anesthesia Plan Resuscitation Status: Full Code Anesthesia Technique: General Anesthesia Airway Planned: Natural Airway Monitors Used: Standard Monitors Preoperative Comments:: Sleeps in recliner due to leg/back nerve issues/paresthesia. Right leg worse than left but usually wakes up with legs numb.
[2023-05-10 08:08] VITALS: BMI 39.4
[2023-05-10] MEDS: Lactated Ringers 1,000 ML 80 ML IV (08:19)
[2023-05-10 08:56] VITALS: BP 141/76; PULSE 80; RESP 18; TEMP 36; O2SAT 99
--- NOTE | 2023-05-10 09:05 | W.ANESPOSTOP ---
Postoperative Evaluation Date, Time and Location Date Performed: 05/10/23 Time Performed: 09:05 Patient Location: Day Surgery Unit Vital Signs Most Recent Imported Vital Signs: Most Recent Vital Signs Temp Pulse Resp BP Pulse Ox 36 C L 80 18 141/76 H 99 05/10/23 08:56 05/10/23 08:56 05/10/23 08:56 05/10/23 08:56 05/10/23 08:56 Pain Score Most Recent Pain Score: Most Recent Pain Score Pain Level 0 05/10/23 08:56 Assessment Mental Status: Awake (Alert & Oriented to Patient Baseline) Airway and Respiratory Function: Patent airway with normal (patient baseline) respiratory exam Cardiovascular Function: Hemodynamically Stable Hydration Status: Adequately Hydrated Nausea & Vomiting: No Nausea or Vomiting Pain: Pt. Denies Any Pain Peripheral Nerve Block: Patient did not receive a nerve block
[2023-05-10 09:22] VITALS: BP 154/73; PULSE 60; RESP 16; TEMP 36.1; O2SAT 100
== END 2023-05-10 10:40 | disposition home or self-care (01) ==
PROVIDERS: PCP Nurse Practitioner Family; Visit Provider Surgery
PROC: 0DJD8ZZ Inspection of Lower Intestinal Tract, Via Natural or Artificial Opening Endoscopic (ICD-10-PCS; CPT 45378; principal; 2023-05-10 08:15)
DX: Z12.11 Encounter for screening for malignant neoplasm of colon (principal); K59.00 Constipation, unspecified; K64.8 Other hemorrhoids; K62.5 Hemorrhage of anus and rectum
CPT/HCPCS: 45378

== ENCOUNTER 2023-07-12 09:48 | Emergency (ER) | payer BC, MEDICARE, SELFPAY ==
[2023-07-12] VITALS (14 sets, daily range): BP systolic 161–170; BP diastolic 82–97; PULSE 82–116; RESP 11–25; TEMP 37.3; O2SAT 96–99
--- NOTE | 2023-07-12 09:45 | RT.EKG_ITS ---
APPROVED REPORT Exam: Resting ECG Reason for Exam: chest pain Patient Location: E HR:100 bpm ECG Measurements Heart Rate 100 AXIS WV 196 P 50 QRSd 79 QRS 39 QT 339 T -60 QTc 439 Conclusion Sinus tachycardia...rate> 99 Narrow complex sinus tachycardia at a rate of 100. Normal axis. Intervals within normal limits. Mi ld ST segment depression V3 through V5. T wave inversion in lead III. No acute injury pattern. No prior for comparison.
--- NOTE | 2023-07-12 09:51 | W.ED.GENAD ---
Discharge Plan Disposition Patient Disposition: Home Discharge Details Clinical Impression: Acute hypokalemia, Pulmonary embolism on right Primary Care Provider: Denise Nugent ED Provider: Sky Powell Home Meds and New Rx's Prescriptions: New Rajinder DVT-PE Treat 30D Start 5 mg (74 tabs) tablets,dose pack 5 mg PO ONCE Qty: 74 0RF Rx Instructions: New diagnosis of PE. Please begin 10 mg twice daily for 1 week and then 5 mg daily. Continued atorvastatin 40 MG tablet 40 mg PO DAILY metformin 500 MG tablet 500 mg PO DAILY triamcinolone acetonide 15 GM cream 15 gm Topical BID hydrochlorothiazide 12.5 mg capsule 12.5 mg PO DAILY aspirin [Adult Aspirin Regimen] 81 mg tablet,delayed release (DR/EC) 81 mg PO DAILY lidocaine 5 % ointment 1 applic topical TID PRN omeprazole 20 mg Capsule,Delayed Release(Dr/Ec) 20 mg PO BID propranolol 20 mg Tablet 20 mg PO BID Discharge Instructions Additional Instructions: You were seen in the emergency department for your chest pain. You are found to have a small blood clot in your lungs for which you are receiving anticoagulation that you should take as directed. Please return to the emergency department if you fall and hit your head if you pass out or if you develop any shortness of breath. You were also found to have a mildly low potassium which could be related to your hydrochlorothiazide. Please follow-up with your primary care provider concerning whether or not this is an appropriate medicine for you to be taking in the future. Your ultrasound showed no sign of any blood clots in your lungs. Discharge Data Discharge Date/Time-TO BE ENTERED AT DEPARTURE: 07/12/23 14:17 HPI General Date/Time Provider Initiated Documentation: 07/12/23 09:51. HPI Narrative: HPI This is a 69-year-old female hypertension hyperlipidemia arriving to the emergency department in the setting of chest pain. Patient reports that her pain began 2 days ago and is in her upper chest and radiates into her throat. She says that she has had pain when swallowing. She says her pain is worse when eating. She reports that she remotely had a left heart catheterization greater than 10 years ago at [facility] but was not intervened on. She has never had a PE nor DVT. She denies shortness of breath nausea fevers cough diarrhea and sore throat. She denies routine tobacco, ethanol, and illicits. She has no history of diabetes. She has had no rash to her chest. She has not taken any recent falls. Exam General: Well-appearing in no acute distress speaking in complete sentences. Head: Normocephalic, atraumatic. Eye: Extraocular eye movements intact. No conjunctival injection. No scleral icterus. Ear, nose, mouth, throat: Grossly normal inspection. Normal voice, handling secretions normally. Neck: Trachea midline. Cardiovascular: Well-perfused distal extremities. Respiratory: Nonlabored respiration. Gastrointestinal: Nondistended abdomen. Musculoskeletal: No edema. Moving all 4 extremities spontaneously. Skin: Normal for age and race, grossly normal temperature and turgor. No acute rash. Neurologic: Alert and appropriate, no apparent acute deficits. Psychiatric: Mood and manner are appropriate. Grooming and personal hygiene are appropriate. MDM This is an overall well-appearing mildly tachycardic but normothermic 67-year-old chest pain and symptoms of reflux. Patient does have significant risk factors including hyperlipidemia elevated BMI and hypertension. Her ECG is nonischemic she does have some ST segment depression V3 through V5. Will obtain 2 sets of troponin. We will also assess for pancreatitis with lipase. No pain out of proportion to suggest necrotizing soft tissue infection. No recent trauma so doubt pneumothorax. No fevers so doubt pneumonia. No rash to chest to suggest zoster. Not hypotensive and not a dialysis patient so doubt tamponade. No tearing quality to pain so doubt aortic dissection. Patient is tachycardic but not hypoxic. She is not PERC negative so we will obtain a D-dimer to assess for PE. 11:45 AM Dimer markedly positive for which patient will undergo CTA for PE. CBC showing leukocytosis but no anemia no thrombocytopenia. Negative troponin. Comprehensive metabolic panel showing hypokalemia with a serum potassium of 2.9. Hyperbilirubinemia more pronounced compared to prior. Normal renal function no BECKA. Will replete hypokalemia with IV potassium. 2:02 PM Repeat potassium improved to 3.3. Repeat troponin negative. Duplex study with no lower extremity evidence of DVT. I have asked health apartment community assistant manager Karo to have the patient seen within the week by her primary care provider. Will discharge patient on apixaban 10 mg twice daily for 1 week then 5 mg daily in the setting of her subsegmental PEs. Patient has normal renal function. She is on hydrochlorothiazide which certainly could set her up for hypokalemia. She may be a candidate for discontinuing this medication in favor of another medicine however will defer this decision to primary care provider on reassessment. Her Pesi score is 66 points making her class II, low risk for 30-day mortality and appropriate for empiric trial of expectant outpatient management on apixaban. Given no signs of myocardial injury given normal negative troponins and no signs of right heart strain on CTA patient appropriate for discharge. Chronic conditions affecting the care of the patient: Hypertension hyperlipidemia elevated BMI History obtained from an outside historian: N/A External record review: No [facility] EMR records [Diagnostic interpretations performed by me:] [Per my independent interpretation chest x-ray shows:] No acute infiltrate [Per my independent interpretation EKG shows:] Narrow complex sinus tachycardia at a rate of 100. Normal axis. Intervals within normal limits. Mild ST segment depression V3 through V5. T wave inversion in lead III. No acute injury pattern. No prior for comparison. Medications: Potassium repletion & apixaban Social determinants of health affecting disposition: N/A Management discussed with: Radiology Treatment/interventions considered: Hospitalization but deferred given low PESI score Response to therapies provided: N/A Related Data Home Medications Medication Instructions Recorded Confirmed atorvastatin 40 mg tablet 40 mg PO DAILY 04/26/18 05/10/23 metformin 500 mg tablet 500 mg PO DAILY 04/26/18 05/10/23 triamcinolone acetonide 0.1 % 15 gm topical BID 04/26/18 05/10/23 topical cream omeprazole 20 mg capsule,delayed 20 mg PO BID 12/15/19 05/10/23 release propranolol 20 mg tablet 20 mg PO BID 12/15/19 05/10/23 aspirin 81 mg tablet,delayed 81 mg PO DAILY 12/11/21 05/10/23 release (Adult Aspirin Regimen) hydrochlorothiazide 12.5 mg capsule 12.5 mg PO DAILY 12/11/21 05/10/23 lidocaine 5 % topical ointment 1 applic topical TID PRN 12/11/21 05/10/23 apixaban 5 mg (74 tabs) tablets in 5 mg PO ONCE #74 dose pk 07/12/23 a dose pack (Eliquis DVT-PE Treat 30D Start) Previous Rx's Medication Instructions Recorded apixaban 5 mg (74 tabs) tablets in 5 mg PO ONCE #74 dose pk 07/12/23 a dose pack (Eliquis DVT-PE Treat 30D Start) Allergies Allergy/AdvReac Type Severity Reaction Status Date / Time ranitidine HCl [From Zantac] Allergy Intermediate Skin Rash Verified 05/10/23 07:25 General RICHARD: 3 PFSH All Active Problems (Updated 07/12/23 @ 13:17 by Sky Powell MD) Acute hypokalemia (Acute) Pulmonary embolism on right (Acute) Rectal bleeding (Acute) Chronic constipation (Acute) Screening for colon cancer (Acute) IBS (irritable bowel syndrome) (Chronic) Skin nodule (Acute) Obesity (Chronic) Sebaceous cyst (Acute) Skin lesion (Acute) Medical History (Updated 07/12/23 @ 13:17 by Sky Powell MD) Anxiety and depression Bad odor of urine Carpal tunnel syndrome on both sides Chest pain Per pt. states she had it worked up-WNL Chronic bilateral low back pain without sciatica (06/01/18) Degenerative disc disease, lumbar Dyspepsia GERD (gastroesophageal reflux disease) Headache Hyperlipidemia Hypertension Internal derangement of right knee Intertrigo Knee pain, right Lymphadenopathy Meralgia paresthetica of both lower extremities (06/01/18) Metabolic syndrome Morbid obesity Paresthesia of both legs Peripheral edema Postmenopausal bleeding (11/15/13) Sciatica Skin mole Snoring SVT (supraventricular tachycardia) Tinnitus of both ears Trochanteric bursitis, right hip Uterine fibroid Varicose veins of both lower extremities Surgical History (Updated 05/11/23 @ 08:27 by Imelda Vera) History of cardiac catheterization 5+ years ago per pt came back WNL History of colonoscopy (~04/2023) Social History Smoking/Tobacco Use Status: Never Smoking risk assessment performed?: Yes Alcohol Intake: current Alcohol Intake frequency: holidays/special occasions only Drug use: Never Substance use type: does not use Housing: house Current gender identity: female Do you feel safe at home: Yes Do you feel safe in your relationship?: Yes
--- NOTE | 2023-07-12 10:15 | DI.RAD_ITS ---
Exam(s) XR CHEST 2V PA LATERAL EXAM: XR CHEST 2V PA LATERAL CLINICAL HISTORY: Chest pain. TECHNIQUE: 2D digital imaging was performed. COMPARISON: CR CHEST 2 VIEWS PA,LAT from 12/21/2015 FINDINGS: 2 views: Heart size is normal. The mediastinum is not widened. There is platelike atelectasis in the left lung base. Right lung is clear. No pleural effusions. N o pneumothorax. IMPRESSION: There is platelike atelectasis in the left lung base. No pleural effusions. DATA REPOSITORY: RADIATION DOSE DELIVERED:
[2023-07-12] MEDS: Mylanta Suspension 30 ML CUP PO (10:28)
[2023-07-12 10:30] LABS: Abs Immature Grans 0.06 10^3/uL (0.0-0.06); Absolute Basophil Count 0.04 10^3/uL (0.0-0.2); Absolute Eosinophil Count 0.11 10^3/uL (0.0-0.7); Absolute Lymphocyte Count 1.33 10^3/uL (1.2-3.4); Absolute Monocyte Count 0.68 10^3/uL (0.1-0.8); Basophils % 0.3; Eosinophils % 0.9; HCT 40.7 % (36.0-46.0); HGB 13.3 g/dL (11.2-15.7); Immature Grans % 0.5; Lymphocytes % 10.9; MCHC 32.7 % (32.0-36.0); MCV 86 fL (80-95); MPV 8.8 fL (8.0-11.0); Monocytes % 5.6; Neutrophils % 81.8; Platelet Count 248 10^3/uL (130-400); RBC 4.75 10^6/uL (3.93-5.22); RDW 12.9 % (11.7-14.6); RDW-SD 40.3 fL; WBC 12.17 10^3/uL (4.4-10.8)
[2023-07-12 10:31] LABS: Absolute Neutrophil Count 9.96 10^3/uL (1.2-6.7)
[2023-07-12 11:06] LABS: ALT 20 U/L (14-59); AST 17 U/L (15-37); Albumin 3.4 g/dL (3.4-5.0); Alkaline Phosphatase 99 U/L (46-116); Anion Gap 9.4 mmol/L (3-11); BUN 8 mg/dL (7-18); Bilirubin, Total 1.7 mg/dL (0.2-1.0); CO2 28.6 mmol/L (21.0-32.0); CREATININE 0.9 mg/dL (0.55-1.02); Calcium 9.4 mg/dL (8.5-10.1); Chloride 104 mmol/L (98-107); Estimated GFR 70.51 (mL/min/1.73m2); Glucose 130 mg/dL (74-106); Lipase 22 U/L (16-77); Sodium 142 mmol/L (136-145); Total Protein 7.7 g/dL (6.4-8.2); Troponin I < 50 ng/L (<or=60)
[2023-07-12 11:13] LABS: D-Dimer 3422 ng/mlFEU (<500)
--- NOTE | 2023-07-12 11:15 | DI.CT_ITS ---
Exam(s) CT CHEST PE CTA EXAM: CT CHEST PE CTA CLINICAL HISTORY: Positive D-dimer chest pain. TECHNIQUE: Imaging Protocol: CT angiography of the chest was performed using pulmonary embolus don col. Multi planar reconstructions were performed. CONTRAST MATERIAL: Intravenous: Omnipaque 350 Contrast volume: 100 cc COMPARISON: No exams were available for comparison FINDINGS: CHEST: PULMONARY ARTERIES: There are intraluminal filling defects in right upper lobe vessel and in distal p ulmonary artery branches in the posterior basal segment of the right lower lobe. There are no obviou s intraluminal filling defects in the opposite-left lung. No central pulmonary emboli. LUNGS: Mild infiltrate or atelectasis is noted in the lingular segment of the left lung. No other le ft lung findings. No evidence significant infiltrates in the right lung with the exception of some m ild subpleural increased markings in the right lower lobe posterior basal segment.. There are no ple ural effusions. MEDIASTINUM: There is no hilar nor mediastinal adenopathy. Visualized thyroid unremarkable. CARDIAC: Heart size is upper normal. There is no pericardial effusion.Caliber of the thoracic aorta is within normal limits. No evidence of aortic dissection. There is no significant shift of the inte rventricular septum. PARTIALLY VISUALIZED UPPERMOST ABDOMEN: Hepatic steatosis noted. Partially visualized adrenals unrem arkable. OSSEOUS: No significant osseous lesions.No fractures evident. IMPRESSION: 1. This study is positive for the presence of pulmonary emboli in right upper lobe and posterior basa l segment right lower lobe..There is no evidence of pulmonary infarction. No pleural effusions. No intrathoracic adenopathy. 2. Platelike atelectasis/mild infiltrate evident in the lingular segment of the left lung. Called by myself to ER physician. RADIATION DOSE DELIVERED: 440.93mGy.cm Total DLP DATA REPOSITORY: All CT scans at this facility are submitted to the National Radiology Data Registry (NRDR) Dose Index Registry (DIR) with the [employer] (ACR). RADIATION OPTIMIZATION: All CT scans at this facility use at least one of these dose optimization te chniques: automated exposure control; mA and/or kV adjustment per patient size (includes targeted exa ms where dose is matched to clinical indication); or iterative reconstruction.
[2023-07-12 11:16] LABS: Potassium 2.9 mmol/L (3.5-5.1)
[2023-07-12] MEDS: Potassium Bicarbonate/Cit AC 25 MEQ TABLET.EFF 50 MEQ PO (12:11)
[2023-07-12] MEDS: POTASSIUM CHLORIDE/D5-0.9%NACL 1,000 ML 500 MEQ IV (12:14)
[2023-07-12] MEDS: Normal Saline - Diluent 50 ML VIAL IJ (12:48)
--- NOTE | 2023-07-12 13:15 | DI.US_ITS ---
Exam(s) US EXTREMITY VENOUS BI EXAM: US EXTREMITY VENOUS BI CLINICAL HISTORY: Subsegmental PE TECHNIQUE: Grayscale, color, and doppler imaging of the deep venous system of both lower extremities was performed. COMPARISON: US US PELVIS TRANSVAGINAL from 10/03/2021 FINDINGS: There is no evidence of intraluminal thrombus and there is normal compression and augmentation demons trated within the common femoral veins, femoral veins, and popliteal veins of both lower extremities. In the calves the interrogated veins also exhibit normal compression/ augmentation properties. The greater saphenous veins also appear patent as do the saphenofemoral junctions bilaterally.. IMPRESSION: 1. No ultrasound evidence of DVT in either lower extremity. DATA REPOSITORY:
[2023-07-12 13:51] LABS: Potassium 3.3 mmol/L (3.5-5.1); Troponin I < 50 ng/L (<or=60)
[2023-07-12] MEDS: Apixaban 5 MG TAB 10 MG PO (14:14)
== END 2023-07-12 14:17 | disposition home or self-care (01) ==
PROVIDERS: Emergency Provider Emergency Medicine; PCP Nurse Practitioner Family
DX: R07.9 Chest pain, unspecified (principal); I26.99 Other pulmonary embolism without acute cor pulmonale; E87.6 Hypokalemia; R00.0 Tachycardia, unspecified; I10 Essential (primary) hypertension; E78.5 Hyperlipidemia, unspecified; Z79.82 Long term (current) use of aspirin
CPT/HCPCS: 36415; 71275; 80053; 83690; 93005; 96374; 99285; 71046; 84132; 84484; 85025; 85379; 93010; 93970

== ENCOUNTER 2023-07-12 12:02 | Outpatient (REF) | payer BC, MEDICARE, SELFPAY ==
[2023-07-12 16:30] LABS: ALT 25 U/L (14-59); AST 16 U/L (15-37); Albumin 3.5 g/dL (3.4-5.0); Alkaline Phosphatase 105 U/L (46-116); Anion Gap 11.5 mmol/L (3-11); BUN 10 mg/dL (7-18); Bilirubin, Total 1.8 mg/dL (0.2-1.0); CO2 27.5 mmol/L (21.0-32.0); CREATININE 0.9 mg/dL (0.55-1.02); Calcium 9.2 mg/dL (8.5-10.1); Calculated LDL 133 mg/dL (<100); Chloride 103 mmol/L (98-107); Cholesterol 221 mg/dL (<200); Estimated GFR 70.51 (mL/min/1.73m2); Glucose 138 mg/dL (74-106); HDL Cholesterol 73 mg/dL (40-60); Magnesium 1.6 mg/dL (1.8-2.4); Potassium 3.3 mmol/L (3.5-5.1); Sodium 142 mmol/L (136-145); Total Protein 7.4 g/dL (6.4-8.2); Triglyceride 79 mg/dL (<150)
== END 2023-07-12 12:03 | disposition home or self-care (01) ==
LOC: NCHCN 12:02
PROVIDERS: PCP Nurse Practitioner Family; Visit Provider Family Medicine
DX: I10 Essential (primary) hypertension (principal); K30 Functional dyspepsia; E78.5 Hyperlipidemia, unspecified
CPT/HCPCS: 80053; 80061; 83735

== ENCOUNTER 2023-07-15 14:00 | Outpatient (REF) | payer BC, MEDICARE, SELFPAY ==
[2023-07-15 14:40] LABS: Anion Gap 7.2 mmol/L (3-11); BUN 7 mg/dL (7-18); CO2 29.8 mmol/L (21.0-32.0); CREATININE 0.9 mg/dL (0.55-1.02); Calcium 9.3 mg/dL (8.5-10.1); Chloride 105 mmol/L (98-107); Estimated GFR 70.51 (mL/min/1.73m2); Glucose 123 mg/dL (74-106); Potassium 4.2 mmol/L (3.5-5.1); Sodium 142 mmol/L (136-145)
== END 2023-07-15 14:01 | disposition home or self-care (01) ==
LOC: NCHCN 14:00
PROVIDERS: PCP Nurse Practitioner Family; Visit Provider Nurse Practitioner Family
DX: E87.6 Hypokalemia (principal); I10 Essential (primary) hypertension
CPT/HCPCS: 80048

== ENCOUNTER → 2023-07-30 02:43 | Outpatient (CLI) | payer BC, MEDICARE, SELFPAY ==
--- NOTE | 2023-07-30 15:00 | DI.US_ITS ---
APPROVED REPORT EXAM: Comprehensive 2D, Doppler, and color-flow Echocardiogram Patient Location: Out-Patient Security Checker: Halley Mello RDCS (AE) Indications: Pulmonary embolism Other Information Study Quality: Adequate Conclusion Normal left ventricular wall thickness and chamber size. Ejection fraction is 55%. Wall motion is n ormal Normal right ventricular size and systolic function Both atria are normal in size There is no structural or hemodynamically significant valvular disease Estimated right ventricular systolic pressure is 22 mmHg Wall motion Left Ventricle The left ventricle is normal size. The left ventricular systolic function is normal. The left ventric ular ejection fraction is within the normal range. There is normal left ventricular wall thickness. T here is normal LV segmental wall motion. There is no ventricular septal defect visualized. LVEF is 55 %. Right Ventricle The right ventricle is normal size. The right ventricular systolic function is normal. Atria The left atrium size is normal. The right atrium size is normal. The interatrial septum is intact wit h no evidence for an atrial septal defect. Aortic Valve The aortic valve is normal in structure. There is no aortic valvular stenosis. No aortic regurgitatio n is present. Mitral Valve The mitral valve is normal in structure. No evidence of mitral valve stenosis. Mild mitral regurgitat ion. Tricuspid Valve The tricuspid valve is normal in structure. There is no tricuspid valve stenosis. Trace tricuspid reg urgitation. The RVSP is 22.2mmHg. Pulmonic Valve The pulmonary valve is normal in structure. There is no pulmonic valvular stenosis. Trace pulmonic re gurgitation. Great Vessels The aortic root is normal in size. The ascending aorta is normal in size. Aortic arch is not well vis ualized. IVC is normal in size and collapses >50% with inspiration. Pericardium There is no pericardial effusion. 2D Dimensions IVSD d PLAX 0.78 cm F: 0.6-1.0 Ao Root d 2.73 cm F: 2.7 - 3.3 LVPW d PLAX 0.93 cm F: 0.6 - 1.0 Ao Asc Diam d 2.82 cm F: 2.3 - 3.1 LVID d PLAX 4.58 cm F: 3.8 - 5.2 LVDs 3.33 cm F: 2.2 - 3.5 LV EF Teichholz 53.3 % FS 27.34 % LV EDV (Teich) 96.2 mL LV ESV (Teich) 45.0 mL M-Mode TAPSE 3.15 cm (M/F) >1.7 Auto EF LV EDV A4C 99.1 mL LV EDV A2C 97.5 mL LV EDV BP 99.5 mL LV ESV A4C 47.8 mL LV ESV A2C 44.1 mL LV ESV BP 46.7 mL LVEF(%) A4C 51.7 % LVEF(%) A2C 54.8 % LVEF(%) BP 53.1 % LV SV A4C 51.3 ml LV SV A2C 53.4 ml LV SV BP 52.8 ml LV CO A4C 3.2 L/min LV CO A2C 3.4 L/min LV CO BP 3.3 L/min HR A4C 63.38 BPM HR A2C 64.52 BPM LV EDV Index (BP) LA Volume LA Length A4C 4.8 cm LA Length A2C 5.4 cm LA Area A4C s 16.55 cm2 LA Area A2C s 13.97 cm2 LA Vol A4C A-L 48.13 mL LA Vol A2C A-L 30.57 mL LA Vol Biplane A-L 40.6 mL LA Vol/BSA A4C A-L LA Vol/BSA A2C A-L LA Vol/BSA BP A-L 20.3 mL/m2 LA Vol A4C MOD 45.8 mL LA Vol A2C MOD 28.8 mL LA Vol BP MOD 38.4 mL RA Volume RA Area A4C 13.7 cm2 RA ESV A4C (A-L) 33.0mL RA Vol/BSA A4C A-L RA Length A4C 4.8 cm RA ESV A4C (MOD) 31.7mL LV Diastology MV E' medial 0.097 (>0.07 m/s) MV E Vmax 0.93 (0.4-1.3 m/s) MV E/E' MED 9.56 (<14) MV A Vmax 0.95 (0.4-1.3 m/s) MV E' lateral 0.087 (>0.1 m/s) E/A Ratio 1.0 MV E/E' LAT 10.67 (<14) MV E' Average 0.092 m/s MV E/E'(average) 10.09 Aortic Valve AoV Vmax 1.25 m/s LVOT Vmax 1.13 m/s AoV Peak Grad 6.2 mmHg LVOT Peak Grad 5.1 mmHg AoV Area (Vmax) 2.61 cm2 LVOT VTI 0.232 m AoV VTI 0.312 m LVOT Mean Grad 2.5 mmHg AoV Mean Davonte. 0.89 m/s LVOT SV 66.84 mL AoV Mean Grad 3.6 mmHg LVOT Diam s 1.90 cm AoV Area (VTI) 2.14 cm2 Velocity Ratio 0.90 Mitral Valve MV DT 183 (160-240 msec) MV Vmax TIPS 1.02 m/s MV Mean Grad 2.1 (<2mmHg) MV VTI 0.343 m Pulmonary Valve PV Vmax 1.03 (0.5-1.5 m/s) RVOT Vmax 0.63 m/s PV Peak Grad 4.2 mmHg RVOT Peak Gr. 1.6 mmHg PV Mean Davonte 0.65 m/s RVOT VTI 0.188 m PV Mean Grad 2.0 mmHg RVOT Mean Gr. 1.0 mmHg Tricuspid Valve RA Pressure 3.00 mmHg TR Vmax 2.19 m/s TV S' 0.13 m/s TR Peak Grad 19.2 mmHg RVSP (TR) 22.2 mmHg
== END ==
PROVIDERS: PCP Nurse Practitioner Family; Visit Provider Nurse Practitioner Family
DX: I26.99 Other pulmonary embolism without acute cor pulmonale (principal)
CPT/HCPCS: 93306

== ENCOUNTER 2023-08-02 08:18 | Outpatient (CLI) | payer BC, MEDICARE, SELFPAY | END 2023-08-02 08:19 | disposition home or self-care (01) | PROVIDERS: PCP Nurse Practitioner Family; Visit Provider Nurse Practitioner Family | DX: I26.99 Other pulmonary embolism without acute cor pulmonale (principal) | CPT/HCPCS: 93270 ==

== ENCOUNTER 2023-08-26 08:11 | Inpatient (IN) | payer BC, MEDICARE, SELFPAY ==
[2023-08-26] VITALS (23 sets, daily range): BP systolic 105–179; BP diastolic 54–79; PULSE 62–85; RESP 10–18; TEMP 36.3–37; O2SAT 92–100; BMI 37.5
--- NOTE | 2023-08-26 09:00 | DI.RAD_ITS ---
Exam(s) XR TIB/FIB RT EXAM: XR TIB/FIB RT CLINICAL HISTORY: FALL DEFORMITY. TECHNIQUE: 2D digital imaging was performed. COMPARISON: No exams were available for comparison FINDINGS: Two views. Trimalleolar fracture at the ankle is noted best on the vacated ankle images. There are no fracture seen higher up in the tibia and fibula. Tibial plateau appears intact. Mild degenerative changes in the knee noted. No knee joint effusion evident. No osseous lesions. IMPRESSION: Trimalleolar ankle fracture. No fractures higher up in the tibia/fibula. DATA REPOSITORY: RADIATION DOSE DELIVERED:
--- NOTE | 2023-08-26 09:00 | DI.RAD_ITS ---
Exam(s) XR ANKLE RT COMPLETE EXAM: XR ANKLE RT COMPLETE CLINICAL HISTORY: FALL DEFORMITY. TECHNIQUE: 2D digital imaging was performed. COMPARISON: No exams were available for comparison FINDINGS: There is an acute trimalleolar fracture of the ankle with no element of dislocation/widening of the m ortise. The fracture fragments are displaced at all 3 levels, including the posterior malleolus frac ture. There also appears to be a fracture fragment off the anterior aspect of the tibial plafond and, seen on the cross-table lateral view. Talar dome appears intact. No osseous lesions. No radiopaque foreign bodies. IMPRESSION: Displaced trimalleolar fractures. Partial dislocation. DATA REPOSITORY: RADIATION DOSE DELIVERED:
--- NOTE | 2023-08-26 09:10 | ED.GENADUL_ITS ---
Discharge Plan Disposition Patient Disposition: Admit to [facility] Condition: Serious Discharge Details Clinical Impression: Closed trimalleolar fracture of right ankle Attending Provider: James Cloud Primary Care Provider: Denise Nugent ED Provider: Simran Vergara Medical Decision Making 0910: Initial documentation started on paper chart. See downtime chart. 67-year-old female presents to the ER via EMS status post mechanical fall she slipped outside landing on her right ankle wall and her bottom. She denies hitting her head no loss consciousness denies any neck or back pain. She does arrive in a [employer] splint which was applied by EMS prior to arrival. She was also given 100 mcg of fentanyl prior to arrival. 0941: X-ray shows trimalleolar fracture with small amount of dislocation. Spoke with Dr. Cloud orthopedic surgeon on-call regarding patient case in details. He will review the chart and plan to reduce the fracture either here in the ER or in day surgery. He recommends n.p.o. status and elevation of patient's leg. She last ate just after 6 AM this morning. 1023: Dr. Cloud at for patient eval. 1035: Dr. Cloud is recommending hospitalist admission due to history of PE and comorbidities. Will page hospitalist. 1148: Spoke with hospitalist Dr. Kay who agrees to accept patient to ICU as a med surg overflow. [facility]. Patient is to be admitted after the surgery. 1335: Patient transferred over to GI surgery in hemodynamically stable condition. Imaging Data Radiologic Study: Imaging: X-Ray Radiologist's impression: XR ANKLE RT COMPLETE EXAM: XR ANKLE RT COMPLETE CLINICAL HISTORY: FALL DEFORMITY. TECHNIQUE: 2D digital imaging was performed. COMPARISON: No exams were available for comparison FINDINGS: There is an acute trimalleolar fracture of the ankle with no element of dislocation/widening of the mortise. The fracture fragments are displaced at all 3 levels, including the posterior malleolus fracture. There also appears to be a fracture fragment off the anterior aspect of the tibial plafond and, seen on the cross-table lateral view. Talar dome appears intact. No osseous lesions. No radiopaque foreign bodies. IMPRESSION: Displaced trimalleolar fractures. Partial dislocation. Radiologic Study #2: Imaging: X-Ray Radiologist's impression: EXAM: XR TIB/FIB RT CLINICAL HISTORY: FALL DEFORMITY. TECHNIQUE: 2D digital imaging was performed. COMPARISON: No exams were available for comparison FINDINGS: Two views. Trimalleolar fracture at the ankle is noted best on the vacated ankle images. There are no fracture seen higher up in the tibia and fibula. Tibial plateau appears intact. Mild degenerative changes in the knee noted. No knee joint effusion evident. No osseous lesions. IMPRESSION: Trimalleolar ankle fracture. No fractures higher up in the tibia/fibula. HPI General Date/Time Provider Initiated Documentation: 08/26/23 09:10 . Related Data Home Medications Medication Instructions Recorded Confirmed atorvastatin 40 mg tablet 40 mg PO DAILY 04/26/18 08/26/23 metformin 500 mg tablet 1,500 mg PO DAILY 04/26/18 08/26/23 omeprazole 20 mg capsule,delayed 20 mg PO BID 12/15/19 08/26/23 release propranolol 20 mg tablet 20 mg PO BID 12/15/19 08/26/23 aspirin 81 mg tablet,delayed 81 mg PO DAILY 12/11/21 08/26/23 release (Adult Aspirin Regimen) hydrochlorothiazide 12.5 mg capsule 12.5 mg PO DAILY 12/11/21 08/26/23 lidocaine 5 % topical ointment 1 applic topical TID PRN 12/11/21 08/26/23 apixaban 5 mg (74 tabs) tablets in 5 mg PO ONCE #74 dose pk 07/12/23 08/26/23 a dose pack (Eliquis DVT-PE Treat 30D Start) magnesium chloride 71.5 mg 143 mg PO DAILY 08/26/23 08/26/23 (magnesium chloride) tablet,delayed release (Slow-Mag) Previous Rx's Medication Instructions Recorded apixaban 5 mg (74 tabs) tablets in 5 mg PO ONCE #74 dose pk 07/12/23 a dose pack (Eliquis DVT-PE Treat 30D Start) Allergies Allergy/AdvReac Type Severity Reaction Status Date / Time ranitidine HCl [From Zantac] Allergy Intermediate Skin Rash Verified 05/10/23 07:25 General Stated Complaint: Orthopedic RICHARD: 3 PFSH All Active Problems Closed trimalleolar fracture of right ankle (Acute 08/26/23) Rectal bleeding (Acute) Chronic constipation (Acute) Screening for colon cancer (Acute) IBS (irritable bowel syndrome) (Chronic) Skin nodule (Acute) Obesity (Chronic) Sebaceous cyst (Acute) Skin lesion (Acute) Medical History Tinnitus of both ears Varicose veins of both lower extremities Skin mole Paresthesia of both legs Sciatica Carpal tunnel syndrome on both sides Peripheral edema Morbid obesity Metabolic syndrome Lymphadenopathy Anxiety and depression Headache SVT (supraventricular tachycardia) Chest pain Per pt. states she had it worked up-WNL Intertrigo Snoring Bad odor of urine Dyspepsia Uterine fibroid Postmenopausal bleeding (11/15/13) Meralgia paresthetica of both lower extremities (06/01/18) Chronic bilateral low back pain without sciatica (06/01/18) Internal derangement of right knee Trochanteric bursitis, right hip Degenerative disc disease, lumbar Hypertension GERD (gastroesophageal reflux disease) Hyperlipidemia Knee pain, right Surgical History History of colonoscopy (~04/2023) History of cardiac catheterization 5+ years ago per pt came back WNL Social History Smoking/Tobacco Use Status: Never Smoking risk assessment performed?: Yes Alcohol Intake: current Alcohol Intake frequency: holidays/special occasions only Drug use: Never Substance use type: does not use Housing: house Current gender identity: female Do you feel safe at home: Yes Do you feel safe in your relationship?: Yes Course Vital Signs Vital signs: Vital Signs Temperature 36.7 C 08/26/23 08:53 Pulse 83 08/26/23 08:53 Respiratory Rate 16 08/26/23 08:53 Blood Pressure 155/67 H 08/26/23 08:53 Pulse Oximetry 97 08/26/23 08:53 Temperature 36.7 C 08/26/23 08:53 Temperature Source Oral 08/26/23 08:53 Pulse 83 08/26/23 08:53 Respiratory Rate 16 08/26/23 08:53 Respiratory Effort Normal, Non-Labored 08/26/23 09:01 Blood Pressure 155/67 H 08/26/23 08:53 Blood Pressure Position Supine 08/26/23 08:53 Pulse Oximetry 97 08/26/23 08:53 Oxygen Delivery Method Room Air 08/26/23 08:53 Oxygen Flow Rate 0 08/26/23 08:53 Pain Level 3 08/26/23 08:53
--- NOTE | 2023-08-26 10:47 | W.ORTHOCONSU ---
Date of service: 08/26/23 Time of Service: 10:47 Assessment and Plan Assessment and plan (1) Closed trimalleolar fracture of right ankle: Status: Acute Assessment and plan: 67 year old female with displaced Right ankle trimalleolar fracture Mechanical fall slip on snow earlier today. Isolated right ankle injury. Ambulated without difficulty, no pre-existing right ankle problems prior to this injury. N.p.o. since 6 AM. Last dose apixiban 6AM. Next due 6PM. Significant relevant history includes pulmonary embolism, unprovoked about 6 weeks ago. Currently on Eliquis anticoagulation. Has been referred to [facility] hematology but not scheduled yet. Describes prediabetes, baseline neuropathy legs feet and ankle below the knees, believes it might be from her back/lumbar spine. Morbid obesity. Denies any ongoing chest, lung, heart active problems. Had post PE echo done with results here not showing any significant abnormalities. Patient examined, resting comfortably in emergency room stretcher, denies any other injuries except about the right ankle, which shows obvious lateral deformity. Mildly worsened paresthesias globally about the foot and toes. Able to wiggle all toes. Enlarged significantly soft tissue envelope, as best I can tell compartments seem soft. Weakly palpable dorsalis pedis pulse. Mildly cool due to cold, but refill all toes. Mild surrounding ankle edema and medial ecchymosis and medial distal tibia prominence. No more proximal leg tenderness bruising or deformities including the knee. Discussed thoroughly with emergency room provider, [employer]'s, and outpatient medical notes obtained from [facility]. Unfortunately, patient high risk for bleeding and clotting due to recent unprovoked PE currently on anticoagulation. We will need to continue anticoagulation through surgery and potentially increase medication postoperatively due to the increased risk from immobility after ankle surgery. Anticipate prolonged admission and potentially requiring acute rehab as age and morbid obesity make successful nonweightbearing status with crutches or walker unlikely. Prolonged healing and heightened risk for healing problem infection, and nerve problems due to pre-existing nerve problems and neuropathy obesity and prediabetes. Plan on strong fixation medially and laterally including syndesmotic fixation as needed. Indirect reduction for the posterior malleolus smaller fragment especially considering leg size Decision to proceed with surgery today Right ankle open reduction internal fixation, possible syndesmosis fixation The risks, benefits, and alternatives were thoroughly discussed. Patient was counseled regarding pain management, expected postoperative course, and recovery timeline. All questions were answered. Breathing comfortably on room air. No coughs or wheezes. 2+ right radial pulse. Regular rate and rhythm. Discussed thoroughly with Dr. Mendoza medical hospitalist in particular reviewed bleeding and clotting risk. Plan to do surgery today while in between apixaban doses. Resume apixaban tonight around her usual schedule or start heparin based on bleeding risk and time from end of surgery. Duplex done at time of PEs was negative for clot. Calfs and legs remain asymptomatic. No indication for IVC filter at this time. Would consider IVC filter if patient develops lower extremity blood clot or cannot tolerate anticoagulation. PFSH All Active Problems Closed trimalleolar fracture of right ankle (Acute 08/26/23) Rectal bleeding (Acute) Chronic constipation (Acute) Screening for colon cancer (Acute) IBS (irritable bowel syndrome) (Chronic) Skin nodule (Acute) Obesity (Chronic) Sebaceous cyst (Acute) Skin lesion (Acute) Medical History Tinnitus of both ears Varicose veins of both lower extremities Skin mole Paresthesia of both legs Sciatica Carpal tunnel syndrome on both sides Peripheral edema Morbid obesity Metabolic syndrome Lymphadenopathy Anxiety and depression Headache SVT (supraventricular tachycardia) Chest pain Per pt. states she had it worked up-WNL Intertrigo Snoring Bad odor of urine Dyspepsia Uterine fibroid Postmenopausal bleeding (11/15/13) Meralgia paresthetica of both lower extremities (06/01/18) Chronic bilateral low back pain without sciatica (06/01/18) Internal derangement of right knee Trochanteric bursitis, right hip Degenerative disc disease, lumbar Hypertension GERD (gastroesophageal reflux disease) Hyperlipidemia Knee pain, right Surgical History History of colonoscopy (~04/2023) History of cardiac catheterization 5+ years ago per pt came back WNL Social History Smoking/Tobacco Use Status: Never Smoking risk assessment performed?: Yes Alcohol Intake: current Alcohol Intake frequency: holidays/special occasions only Drug use: Never Substance use type: does not use Housing: house Current gender identity: female Do you feel safe at home: Yes Do you feel safe in your relationship?: Yes Results Last Vital Signs Temp 98.0 F 08/26/23 08:53 Pulse 83 08/26/23 08:53 Resp 16 08/26/23 08:53 BP 155/67 H 08/26/23 08:53 Pulse Ox 97 08/26/23 08:53 Labs 08/26/23 10:50 08/26/23 10:50
[2023-08-26 10:56] LABS: Abs Immature Grans 0.04 10^3/uL (0.0-0.06); Absolute Basophil Count 0.03 10^3/uL (0.0-0.2); Absolute Lymphocyte Count 1.86 10^3/uL (1.2-3.4); Absolute Monocyte Count 0.47 10^3/uL (0.1-0.8); Absolute Neutrophil Count 3.72 10^3/uL (1.2-6.7); Basophils % 0.5; Eosinophils % 1.6; HCT 40.4 % (36.0-46.0); HGB 13.5 g/dL (11.2-15.7); Immature Grans % 0.6; Lymphocytes % 29.9; MCH 30.1 pg (27.0-33.0); MCHC 33.4 % (32.0-36.0); MCV 90 fL (80-95); MPV 9.5 fL (8.0-11.0); Monocytes % 7.6; Neutrophils % 59.8; Platelet Count 252 10^3/uL (130-400); RBC 4.48 10^6/uL (3.93-5.22); RDW 12.5 % (11.7-14.6); RDW-SD 41.1 fL; WBC 6.22 10^3/uL (4.4-10.8)
[2023-08-26 11:11] LABS: Anion Gap 9.8 mmol/L (3-11); BUN 13 mg/dL (7-18); CO2 25.2 mmol/L (21.0-32.0); CREATININE 0.7 mg/dL (0.55-1.02); Calcium 9.2 mg/dL (8.5-10.1); Chloride 104 mmol/L (98-107); Estimated GFR 95.32 (mL/min/1.73m2); Glucose 224 mg/dL (74-106); Potassium 3.8 mmol/L (3.5-5.1); Sodium 139 mmol/L (136-145)
[2023-08-26 11:14] LABS: Source Nasal/Nares
[2023-08-26 11:52] LABS: COVID-19 PCR Negative (Negative)
--- NOTE | 2023-08-26 11:54 | ANES.PREOP_ITS ---
General Info Date of Service Date Performed: 08/26/23 Height: 5 ft 3.6 in Weight: 98.066 kg Body Mass Index (BMI): 37.5 Surgical Procedure: Operation Date: 08/26/23 10:25 Proposed Procedure Side Surgeon p Ankle ORIF Right James Cloud MD Meds Allergies and Home Medications Allergies Allergy/AdvReac Type Severity Reaction Status Date / Time ranitidine HCl [From Zantac] Allergy Intermediate Skin Rash Verified 05/10/23 07:25 Home Medication Medication Instructions Recorded atorvastatin 40 mg tablet 40 mg PO DAILY 04/26/18 metformin 500 mg tablet 1,500 mg PO DAILY 04/26/18 omeprazole 20 mg capsule,delayed 20 mg PO BID 12/15/19 release propranolol 20 mg tablet 20 mg PO BID 12/15/19 aspirin 81 mg tablet,delayed 81 mg PO DAILY 12/11/21 release (Adult Aspirin Regimen) hydrochlorothiazide 12.5 mg capsule 12.5 mg PO DAILY 12/11/21 lidocaine 5 % topical ointment 1 applic topical TID PRN 12/11/21 apixaban 5 mg (74 tabs) tablets in 5 mg PO ONCE #74 dose pk 07/12/23 a dose pack (Ocutronics DVT-PE Treat 30D Start) magnesium chloride 71.5 mg 143 mg PO DAILY 08/26/23 (magnesium chloride) tablet,delayed release (Slow-Mag) Current Visit Medications: Current Medications Generic Name Dose Route Start Last Admin Trade Name Freq PRN Reason Stop Dose Admin IV Miscellaneous Supplies 1 each 08/26/23 12:00 Iv Access-Emergency Dept IV DIRECTED ALEJO Sodium Chloride 0 ml 08/26/23 11:49 Normal Saline Flush 10 Ml Syr IVP PRN PRN PFSH Active Problems Active Problems: Problem Status Onset Code Closed trimalleolar fracture of right ankle 08/26/23 S82.851A Rectal bleeding K62.5 Chronic constipation K59.09 Screening for colon cancer Z12.11 IBS (irritable bowel syndrome) K58.9 Skin nodule R22.9 Obesity E66.9 Sebaceous cyst L72.3 Skin lesion L98.9 Medical History Medical History Tinnitus of both ears Varicose veins of both lower extremities Skin mole Paresthesia of both legs Sciatica Carpal tunnel syndrome on both sides Peripheral edema Morbid obesity Metabolic syndrome Lymphadenopathy Anxiety and depression Headache SVT (supraventricular tachycardia) Chest pain Per pt. states she had it worked up-WNL Intertrigo Snoring Bad odor of urine Dyspepsia Uterine fibroid Postmenopausal bleeding (11/15/13) Meralgia paresthetica of both lower extremities (06/01/18) Chronic bilateral low back pain without sciatica (06/01/18) Internal derangement of right knee Trochanteric bursitis, right hip Degenerative disc disease, lumbar Hypertension GERD (gastroesophageal reflux disease) Hyperlipidemia Knee pain, right Medical History Comments:: 05/10/23 pt reports she has difficulty laying flat and on her sides, pt normally sleeps in a recliner. Surgical History Surgical History History of colonoscopy (~04/2023) History of cardiac catheterization 5+ years ago per pt came back WNL Tobacco Smoking/Tobacco Use Status: Never Alcohol Alcohol Intake: current Alcohol intake frequency: holidays/special occasions only Substance Use Substance use: Never Substance use type: does not use Vital Signs and Lab Results Vital Signs Most Recent Vital Signs in EMR: Most Recent Vital Signs Temp Pulse Resp BP Pulse Ox 36.7 C 83 16 155/67 H 97 08/26/23 08:53 08/26/23 08:53 08/26/23 08:53 08/26/23 08:53 08/26/23 08:53 Lab Results 08/26/23 10:50 08/26/23 10:50 Blood Type / Crossmatch: 2 No Data to Display Complete Blood Count: 2 White Blood Count 6.22 10^3/uL (4.4-10.8) 08/26/23 10:50 Red Blood Count 4.48 10^6/uL (3.93-5.22) 08/26/23 10:50 Hemoglobin 13.5 g/dL (11.2-15.7) 08/26/23 10:50 Hematocrit 40.4 % (36.0-46.0) 08/26/23 10:50 Platelet Count 252 10^3/uL (130-400) 08/26/23 10:50 Complete Metabolic Panel: 2 Sodium 139 mmol/L (136-145) 08/26/23 10:50 Potassium 3.8 mmol/L (3.5-5.1) 08/26/23 10:50 Chloride 104 mmol/L (98-107) 08/26/23 10:50 Carbon Dioxide 25.2 mmol/L (21.0-32.0) 08/26/23 10:50 BUN 13 mg/dL (7-18) 08/26/23 10:50 Creatinine 0.7 mg/dL (0.55-1.02) 08/26/23 10:50 Est GFR (CKD-EPI 2020) 95.32 (mL/min/1.73m2) 08/26/23 10:50 Calcium 9.2 mg/dL (8.5-10.1) 08/26/23 10:50 Glucose 224 mg/dL (74-106) H 08/26/23 10:50 Liver Function Panel: 2 No Data to Display Coagulation Panel: 2 No Data to Display Cardiac Panel: 2 No Data to Display Arterial Blood Gas: 2 No Data to Display Venous Blood Gas: 2 No Data to Display Pancreas Panel: 2 No Data to Display Thyroid Panel: 2 No Data to Display Infectious Disease: 2 Coronavirus 2019 Source Nasal/Nares 08/26/23 11:03 Blood Cultures: 2 No Data to Display Toxicology Panel: 2 No Data to Display Imaging and Studies Imaging and Studies Study information below may be from another EMR and interpreted by another provider. Please see original notes in EMR for more complete details. EKG Summary: EKG PATIENT NAME: Gladys Vyas UNIT #: [id number] ORDERING PROVIDER: Sky Powell M.D. PRIMARY CARE PROVIDER: HAYLEY HARRISON APRN DATE/TIME OF SERVICE: 07/12/2351 : 1955 PERFORMING LOCATION: ER APPROVED REPORT Exam: Resting ECG Reason for Exam: chest pain Patient Location: E HR:100 bpm ECG Measurements Heart Rate 100 AXIS NJ 196 P 50 QRSd 79 QRS 39 QT 339 T-60 QTc 439 Conclusion Sinus tachycardia...rate> 99 Narrow complex sinus tachycardia at a rate of 100. Normal axis. Intervals within normal limits. Mild ST segment depression V3 through V5. T wave inversion in lead III. No acute injury pattern. No prior for comparison. - <Electronically signed by Sky Powell M.D. in OV> E-Sign Date: 07/12/23 E-Sign Time: 1004 ADDENDUM APPROVED REPORT Exam: Resting ECG Reason for Exam: chest pain Patient Location: E HR:100 bpm ECG Measurements Heart Rate 100 AXIS NJ 196 P 50 QRSd 79 QRS 39 QT 339 T-60 QTc 439 Conclusion Sinus tachycardia...rate> 99 Narrow complex sinus tachycardia at a rate of 100. Normal axis. Intervals within normal limits. Mild ST segment depression V3 through V5. T wave inversion in lead III. No acute injury pattern. No prior for comparison. I have reviewed and I agree with the emergency room physician's ECG interpretation. Electronically signed by: <Electronically signed by Minda Ashley M.D. in OV> 07/12/23 1027 Cosigned by: Echocardiogram Summary: Patient Name: Gladys Vyas Unit #: [id number] Loc: Ordering Provider: Hayley Harrison Status: REG [facility] Primary Care Provider: Hayley Harrison Date of Exam: 07/30/23 Sex: F Admission Date: 07/30/23 : 1955 Age: 67 APPROVED REPORT EXAM: Comprehensive 2D, Doppler, and color-flow Echocardiogram Patient Location: Out-Patient Complaints Coordinator: Halley Mello RDCS (AE) Indications: Pulmonary embolism Other Information Study Quality: Adequate Conclusion Normal left ventricular wall thickness and chamber size. Ejection fraction is 55%. Wall motion is normal Normal right ventricular size and systolic function Both atria are normal in size There is no structural or hemodynamically significant valvular disease Estimated right ventricular systolic pressure is 22 mmHg Wall motion Left Ventricle The left ventricle is normal size. The left ventricular systolic function is normal. The left ventricular ejection fraction is within the normal range. There is normal left ventricular wall thickness. There is normal LV segmental wall motion. There is no ventricular septal defect visualized. LVEF is 55%. Right Ventricle The right ventricle is normal size. The right ventricular systolic function is normal. Atria The left atrium size is normal. The right atrium size is normal. The interatrial septum is intact with no evidence for an atrial septal defect. Aortic Valve The aortic valve is normal in structure. There is no aortic valvular stenosis. No aortic regurgitation is present. Mitral Valve The mitral valve is normal in structure. No evidence of mitral valve stenosis. Mild mitral regurgitation. Tricuspid Valve The tricuspid valve is normal in structure. There is no tricuspid valve stenosis. Trace tricuspid regurgitation. The RVSP is 22.2mmHg. Pulmonic Valve The pulmonary valve is normal in structure. There is no pulmonic valvular stenosis. Trace pulmonic regurgitation. Great Vessels The aortic root is normal in size. The ascending aorta is normal in size. Aortic arch is not well visualized. IVC is normal in size and collapses >50% with inspiration. Pericardium There is no pericardial effusion. 2D Dimensions IVSD d PLAX 0.78 cm F: 0.6-1.0Ao Root d 2.73 cm F: 2.7 - 3.3 LVPW d PLAX 0.93 cm F: 0.6 - 1.0Ao Asc Diam d 2.82 cm F: 2.3 - 3.1 LVID d PLAX 4.58 cm F: 3.8 - 5.2 LVDs 3.33 cm F: 2.2 - 3.5 LV EF Teichholz 53.3 % FS27.34 % LV EDV (Teich)96.2 mL LV ESV (Teich)45.0 mL M-Mode TAPSE 3.15 cm (M/F) >1.7 Auto EF LV EDV A4C99.1 mLLV EDV A2C97.5 mLLV EDV BP99.5 mL LV ESV A4C47.8 mLLV ESV A2C44.1 mLLV ESV BP46.7 mL LVEF(%) A4C51.7 %LVEF(%) A2C54.8 %LVEF(%) BP53.1 % LV SV A4C51.3 mlLV SV A2C53.4 mlLV SV BP52.8 ml LV CO A4C3.2 L/minLV CO A2C3.4 L/minLV CO BP3.3 L/min HR A4C63.38 BPMHR A2C64.52 BPMLV EDV Index (BP) LA Volume LA Length A4C4.8 cmLA Length A2C5.4 cm LA Area A4C s 16.55 cm2LA Area A2C s 13.97 cm2 LA Vol A4C A-L48.13 mLLA Vol A2C A-L30.57 mLLA Vol Biplane A-L40.6 mL LA Vol/BSA A4C A-LLA Vol/BSA A2C A-LLA Vol/BSA BP A-L 20.3 mL/m2 LA Vol A4C MOD45.8 mLLA Vol A2C MOD28.8 mLLA Vol BP MOD38.4 mL RA Volume RA Area A4C13.7 cm2RA ESV A4C (A-L)33.0mLRA Vol/BSA A4C A-L RA Length A4C4.8 cmRA ESV A4C (MOD)31.7mL LV Diastology MV E' medial0.097 (>0.07 m/s)MV E Vmax 0.93 (0.4-1.3 m/s) MV E/E' MED9.56 (<14)MV A Vmax 0.95 (0.4-1.3 m/s) MV E' lateral0.087 (>0.1 m/s)E/A Ratio 1.0 MV E/E' LAT10.67 (<14) MV E' Average0.092 m/s MV E/E'(average)10.09 Aortic Valve AoV Vmax1.25 m/sLVOT Vmax 1.13 m/s AoV Peak Grad6.2 mmHgLVOT Peak Grad 5.1 mmHg AoV Area (Vmax)2.61 [id number] VTI0.232 m AoV VTI0.312 mLVOT Mean Grad 2.5 mmHg AoV Mean Davonte.0.89 m/sLVOT SV 66.84 mL AoV Mean Grad3.6 mmHgLVOT Diam s 1.90 cm AoV Area (VTI)2.14 cm2 Velocity Ratio 0.90 Mitral Valve MV DT 183 (160-240 msec) MV Vmax TIPS 1.02 m/s MV Mean Grad 2.1 (<2mmHg) MV VTI 0.343 m Pulmonary Valve PV Vmax 1.03 (0.5-1.5 m/s)RVOT Vmax 0.63 m/s PV Peak Grad 4.2 mmHgRVOT Peak Gr.1.6 mmHg PV Mean Vel0.65 m/sRVOT VTI0.188 m PV Mean Grad 2.0 mmHgRVOT Mean Gr.1.0 mmHg Tricuspid Valve RA Pressure 3.00 mmHgTR Vmax 2.19 m/s TV S'0.13 m/sTR Peak Grad 19.2 mmHg RVSP (TR) 22.2 mmHg Ordered By: Hayley Harrison CC: Dictated By: Minda Ashley M.D. 07/30/23 2428 <Electronically signed by Minda Ashley M.D. in OV> 08/02/23 6791 Transcribed By: Minda Ashley MD 07/30/23 6456 This is privileged, confidential information intended only for the provider named. Any use or distribution by any person other than this provider is strictly prohibited. If you receive this report in error, please notify us immediately at [phone] and return the original report to us at the address above. Thank-you. Anesthesia Assessment and Plan Anesthesia History Personal History: No History of Anesthesia Complications Family History: No Family History of Anesthesia Complications Exercise Tolerance Exercise Tolerance: Metabolic Equivalents>4 Pertinent Negatives Pertinent Negatives: No Symptoms of GERD and No History of CVA/TIA Cardiac & Pulmonary Exam Cardiac Exam: Normal S1/S2 Heart Sounds Pulmonary Exam: Clear Bilateral Breath Sounds Cardiac and Pulmonary Comment:: Active intermittent chest pain that corresponds with the onset of her PE. Has been consistent since onset, no change Implantable Cardiac Device Does patient have a Pacemaker or an ICD?: No Airway Exam Known Difficult Airway: No Mallampati Class: 2 Mouth Opening: Normal (> 3cm) Thyromental Distance: Less than 3 cm Neck Range of Motion: Full ROM Neck Circumference: Normal Teeth Condition: Removable Dentures/Plates Upper and Removable Dentures/Plates Lower ASA Classification ASA Score: ASA 3 Emergency Case?: Yes NPO Status NPO Status: NPO Clears >2 hours, Solids >8 hours Anesthesia Plan Resuscitation Status: Full Code Anesthesia Technique: General Anesthesia Airway Planned: Endotracheal Tube Monitors Used: Standard Monitors
--- NOTE | 2023-08-26 13:15 | DI.RAD_ITS ---
Exam(s) XR ANKLE RT 2V EXAM: XR ANKLE RT 2V CLINICAL HISTORY: Closed trimalleolar fracture of right ankle. TECHNIQUE: 2D and realtime digital imaging was performed. COMPARISON: CR XR ANKLE RT COMPLETE from 08/26/2023 FINDINGS: Hard copy images show placement of a lateral fixation plate along the lateral malleolus and screws th rough the medial malleolus as well as mortise screws. The alignment appears anatomic. Please see procedure note for details. Fluoro time: 56.9seconds RADIATION DOSE DELIVERED: janelle Morales=2.33 mGy
[2023-08-26] MEDS: Lactated Ringers 1,000 ML 30 ML IV ×2 (13:49→23:08)
[2023-08-26] MEDS: ceFAZolin 1 GM/50 ML BAG 100 GM (14:03)
[2023-08-26] MEDS: ceFAZolin 2 GM/50 ML BAG 100 GM (14:03)
[2023-08-26] MEDS: Bupivacaine 0.25% Pres-Free 30 ML VIAL (14:21)
[2023-08-26] MEDS: EPINEPHrine 10 MG/10 ML ML (14:21)
--- NOTE | 2023-08-26 16:16 | W.PM.OP ---
Date of service: 08/26/23 Time of Service: 14:30 Operative Note Operative Note DATE OF PROCEDURE: 08/26/23 PRE-OP DIAGNOSIS: Right displaced trimalleolar ankle fracture with syndesmotic instability POST-OP DIAGNOSIS: same PROCEDURE: 1. Right trimalleolar ankle fracture ORIF, medial and lateral malleoli, CPT #66216 2. Open treatment syndesmosis disruption, CPT #28546 SURGEON: James Cloud WOOD TILE INSTALLATION HELPER: Crow Macario ANESTHESIA TYPE: Local By Surgeon and General LMA/ETT Refer to Anesthesia Record ESTIMATED BLOOD LOSS: 30 TOURNIQUET TIME: 0 COMPLICATIONS: None Patient was transported to: PACU Patient's condition: stable Implants: Synthes 1/3 tubular plate 8 hole with 4x proximal bicortical 3.5 millimeter screws, 2x distal 4.0 cancellous screws, and 2x 4.0 cancellous syndesmostic screws; 2x 4.0 partially threaded cancellous screws mediallly Indications: Please see complete medical record for details. Findings: Long distal fibula fracture with poor bone, soft bone, and comminution proximally and distally. Anterior syndesmosis disruption from the fracture fragments about the fibula. Comminuted soft medial malleolus fracture. Procedure Description: In the operating room, general anesthesia was induced. The patient was positioned supine on the operating room table. All bony prominences were well-padded. Preoperative antibiotics were administered. The right ankle was prepped and draped in the usual sterile fashion. The correct patient, procedure, and side of the procedure were all verified prior to incision. The ankle deformity was reduced with the quickly type maneuver varus and internal rotation. Moderate skin edema, but still able to wrinkle and appropriate for surgery. The lateral fibula and medial malleolus were marked and then preinjected generously given the large soft tissue envelope and a long fibular fracture extending proximally with 60 cc of 0.25% bupivacaine containing epinephrine, also used to control hemostasis given the continuation of apixaban for pulmonary emboli. Direct lateral approach to the fibula was taken taking care to retract and protect neurovascular structures as well as tendons. The long fibula fracture was exposed, cleared of interposed and soft tissue, reduced with multiple bone clamps restoring fibular length and reducing the ankle mortise nicely. An appropriately long one third tubular plate was selected and applied to the lateral fibula positioned centrally about the fracture site. It was compressed to the bone with the cortex screw distal to the fracture, rotated into best position, then compressed proximally with a cortex screw as well. Remaining distal screw holes were drilled bicortically but failed unit cortically with cancellous screws given proximity to talus. The remaining proximal holes were drilled and filled with bicortical cortex screws. There was significant soft bone and poor fixation quality distally. The length was stable, but external rotation testing demonstrated motion laterally across the long span of the construct. The shift involve the talus laterally although the medial malleolus remain reduced. The posterior malleolus fracture fragment was small enough to not require direct fixation. In order to add additional strength to the construct and prevent this lateral instability given the posterior syndesmotic avulsion fragment and anterior visible syndesmotic disruption, with quad cortical syndesmotic rigid screws, which are also relatively indicated given the morbid obesity and neuropathy through the extremity. The more proximal of the distal screws was removed, the ankle was positioned in neutral with pressure removed from the heel, using fluoroscopic guidance, the drill was directed quad cortically parallel to the ankle joint while the mortise was maintained reduced through manual reduction. There was poor bone on the medial side possibly owing to proximity to medial malleolus fracture. I cancellous screw was placed quad cortically, tension of the screw had good fixation and actually over compressed the syndesmosis and mall reduced the medial malleolus little too far medially so the screw was backed up until the ankle mortise was restored and there was more normal tib-fib joint. An additional Quadra cortical but cancellous screw was drilled more approximately and screw placed. The medial malleolus fracture was then exposed through a small longitudinal incision. Significant comminution about the fracture but it was able to be reduced and provisionally clamped. Solid drill was used under fluoroscopic guidance to direct 2 screws placed anteriorly and posteriorly and spanning the fracture from the tip of the malleolus and filled with partially-threaded cancellous screws. Fluoroscopy was used to confirm appropriate hardware placement. The ankle joint mortise and syndesmosis were carefully examined, external rotation stress imaging did not reveal any instability. The posterior small malleolus fragment was appropriate lined with reduction fixation of the remainder of the ankle joint. Medial lateral wounds were copiously irrigated normal saline. There was good hemostasis. Subcutaneous tissue was closed using 2-0 Monocryl buried interrupted. Skin was closed and 3-0 nylon horizontal and vertical mattress sutures. Xeroform applied over the incisions followed by generous gauze, ABD pads, sterile Sof-Rol, and the extremity is placed into a short leg plaster AO splint keeping the foot and ankle in neutral position. The patient awoke from anesthesia without complication and was transferred to the recovery room in a stable condition.
--- NOTE | 2023-08-26 16:35 | W.ANESPOSTOP ---
Postoperative Evaluation Date, Time and Location Date Performed: 08/26/23 Time Performed: 16:36 Patient Location: PACU Vital Signs Most Recent Imported Vital Signs: Most Recent Vital Signs Temp Pulse Resp BP Pulse Ox 36.7 C 81 16 108/77 100 08/26/23 16:27 08/26/23 16:27 08/26/23 16:27 08/26/23 16:27 08/26/23 16:27 Pain Score Most Recent Pain Score: Most Recent Pain Score Pain Level 3 08/26/23 1636 Assessment Mental Status: Awake (Alert & Oriented to Patient Baseline) Airway and Respiratory Function: Patent airway with normal (patient baseline) respiratory exam Cardiovascular Function: Hemodynamically Stable Hydration Status: Adequately Hydrated Nausea & Vomiting: No Nausea or Vomiting Pain: Pain is tolerable per patient Peripheral Nerve Block: Patient did not receive a nerve block
[2023-08-26] MEDS: fentaNYL 100 MCG/2 ML VIAL IVP (16:43)
--- NOTE | 2023-08-26 17:18 | PGE_ITS ---
Date of Service Date of service: 08/26/23 Time of Service: 17:19 Assessment and Plan Assessment and plan (1) Closed trimalleolar fracture of right ankle: Status: Acute Assessment and plan: 67-year-old female postop day #0 status post right ankle ORIF with syndesmotic fixation for displaced trimalleolar fracture Patient is comfortable resting in hospital bed. Can feel exposed toes and heel through splint. Wiggles toes without difficulty. Brisk cap refill throughout. Splint clean dry and intact. Ankle elevated on pillow. Surgery went well without any significant bleeding concerns. Complete 24 hours postoperative antibiotics, multimodal pain control, nonweightbearing right ankle for at least 6 weeks. Start physical therapy tomorrow. Home apixaban 5 mg BID resumed this evening to continue treatment for the pulmonary emboli and as DVT prophylaxis, daily aspirin resumed starting tomorrow. Outpatient note from [facility] obtained and scanned into chart reviewing unprovoked PE and pending work-up. Continue mechanical DVT prophylaxis with SCDs and/or RODGER hose on the contralateral side Appreciate medical management Will arrange follow-up with Dr. Pedro Luis espinoza 10-14 days Objective Last Vital Signs Temp 98.1 F 08/26/23 16:57 Pulse 80 08/26/23 16:57 Resp 17 08/26/23 16:57 BP 138/64 08/26/23 16:57 Pulse Ox 96 08/26/23 16:57 Laboratory Results - last 24 hr 08/26/23 08/26/23 10:50 11:03 WBC 6.22 RBC 4.48 Hgb 13.5 Hct 40.4 MCV 90 MCH 30.1 MCHC 33.4 RDW 12.5 Plt Count 252 MPV 9.5 Immature Gran % 0.6 Neutrophils % 59.8 Lymphocytes % 29.9 Monocytes % 7.6 Eosinophils % 1.6 Basophils % 0.5 Nucleated RBC % 0.0 Absolute Neutrophils 3.72 Absolute Lymphocytes 1.86 Absolute Monocytes 0.47 Absolute Eosinophils 0.10 Absolute Basophils 0.03 Sodium 139 Potassium 3.8 Chloride 104 Carbon Dioxide 25.2 Anion Gap 9.8 BUN 13 Creatinine 0.7 Est GFR (CKD-EPI 2020) 95.32 Glucose 224 H Calcium 9.2 COVID-19 Source Nasal/Nares SARS-CoV-2 (PCR) Negative Time Spent with Patient Time Spent with Patient: <25 minutes Time was spent: preparing to see the patient(eg.review tests), indepentently interpreting results and counseling the patient
--- NOTE | 2023-08-26 19:17 | W.PC.ACHO ---
Registration Status: ADM IN Primary Language: Preferred Language: Romanian ED Information & Data Chief Complaint Orthopedic 08/26/23 09:10 Triage Note Pt was getting ready to 08/26/23 08:53 leave for work when she went to walk down her outside stairs and she slipped on the snow and fell. 10 right ankle pain with obvious deformity. CSM+ prior to and after splinting . Splinted with DEBRA splint. Negative LOC. 100 mcg Fentanyl. Medical / Surgical History (Last Reviewed 08/26/23 @ 11:01 by James Cloud MD) Tinnitus of both ears Varicose veins of both lower extremities Skin mole Paresthesia of both legs Sciatica Carpal tunnel syndrome on both sides Peripheral edema Morbid obesity Metabolic syndrome Lymphadenopathy Anxiety and depression Headache SVT (supraventricular tachycardia) Chest pain Intertrigo Snoring Bad odor of urine Dyspepsia Uterine fibroid Postmenopausal bleeding (11/15/13) Meralgia paresthetica of both lower extremities (06/01/18) Chronic bilateral low back pain without sciatica (06/01/18) Internal derangement of right knee Trochanteric bursitis, right hip Degenerative disc disease, lumbar Hypertension GERD (gastroesophageal reflux disease) Hyperlipidemia Knee pain, right (Last Reviewed 08/26/23 @ 11:01 by James Cloud MD) History of colonoscopy (~04/2023) History of cardiac catheterization Most Recent Vital Signs Temperature 36.5 C 08/26/23 18:09 Temperature Source Temporal Artery Scan 08/26/23 18:09 Pulse 62 08/26/23 17:16 Respiratory Rate 18 08/26/23 18:09 Respiratory Effort Normal 08/26/23 18:09 Respiratory Depth Normal 08/26/23 18:09 Respiratory Pattern Normal 08/26/23 18:09 Blood Pressure 150/70 H 08/26/23 17:16 Blood Pressure Mean 94 08/26/23 17:16 Blood Pressure Position Supine 08/26/23 08:53 Pulse Oximetry 99 08/26/23 17:16 Respiratory End-tidal CO2 50 08/26/23 16:57 Oxygen Delivery Method Room Air 08/26/23 18:09 Oxygen Flow Rate 0 08/26/23 18:09 Pain Level 8 08/26/23 18:09 Allergies ranitidine HCl [From Zantac] Allergy (Intermediate, Verified 05/10/23 07:25) Skin Rash Precautions Isolation Standard precaution 08/26/23 09:01 Active Medications Generic Name Dose Route Start Last Admin Trade Name Kaylee PRN Reason Stop Dose Admin Ringer's Solution 1,000 mls @ 30 mls/hr 08/26/23 14:30 08/26/23 15:37 IV 09/25/23 14:29 30 mls/hr INFUSION ALEJO Infusion IV IV Catheter Type [Right Peripheral IV Antecubital] IV Catheter Type [Left Peripheral IV Antecubital] IV Catheter Gauge [Right 20 Antecubital] IV Catheter Gauge [Left 20 Antecubital] Diet Orders Category Date Time Status Heart Healthy Eating [DIET] Nutrition 08/26/23 Dinner Active Diagnostics 08/26/23 08/26/23 Range/Units 11:03 10:50 WBC 6.22 (4.4-10.8) 10^3/uL RBC 4.48 (3.93-5.22) 10^6/uL Hgb 13.5 (11.2-15.7) g/dL Hct 40.4 (36.0-46.0) % MCV 90 (80-95) fL MCH 30.1 (27.0-33.0) pg MCHC 33.4 (32.0-36.0) % RDW 12.5 (11.7-14.6) % Plt Count 252 (130-400) 10^3/uL MPV 9.5 (8.0-11.0) fL Immature Gran % 0.6 Neutrophils % 59.8 Lymphocytes % 29.9 Monocytes % 7.6 Eosinophils % 1.6 Basophils % 0.5 Nucleated RBC % 0.0 (0.0-0.3) % Absolute Neutrophils 3.72 (1.2-6.7) 10^3/uL Absolute Lymphocytes 1.86 (1.2-3.4) 10^3/uL Absolute Monocytes 0.47 (0.1-0.8) 10^3/uL Absolute Eosinophils 0.10 (0.0-0.7) 10^3/uL Absolute Basophils 0.03 (0.0-0.2) 10^3/uL Sodium 139 (136-145) mmol/L Potassium 3.8 (3.5-5.1) mmol/L Chloride 104 (98-107) mmol/L Carbon Dioxide 25.2 (21.0-32.0) mmol/L Anion Gap 9.8 (3-11) mmol/L BUN 13 (7-18) mg/dL Creatinine 0.7 (0.55-1.02) mg/dL Est GFR (CKD-EPI 2020) 95.32 (mL/min/1.73m2) Glucose 224 H (74-106) mg/dL Calcium 9.2 (8.5-10.1) mg/dL COVID-19 Source Nasal/Nares SARS-CoV-2 (PCR) Negative (Negative) [id number] Documentation Fingerstick Glucose Start: 08/26/23 13:29 Freq: Status: Complete Protocol: Activity Type Activity Date Activity User E-sign Co-sign Detail Recorded Client Recorded Date Recorded By Document 08/26/23 13:28 BKG DAEMON(5) NVT-BG05 08/26/23 13:29 BKG DAEMON(6) Fingerstick Glucose Start: 08/26/23 16:28 Freq: Status: Active Protocol: Activity Type Activity Date Activity User E-sign Co-sign Detail Recorded Client Recorded Date Recorded By Document 08/26/23 16:26 BKG DAEMON(7) NVT-BG05 08/26/23 16:28 BKG DAEMON(8) Intake and Output - 24 Hour Total 08/26/23 08:11 thru 08/26/23 18:09 Intake Total 400 Balance 400 Weight 100.2 kg Intake: IV 400 Other: Emesis Description None Falls Risk Assessment History of Falls No History 08/26/23 18:09 Contributing Factors Impairments 08/26/23 18:09 Ambulatory Aids Uses ambulatory device + 08/26/23 18:09 Tubes/Lines W/no contributing factors 08/26/23 18:09 Gait Evaluation W/any additional score 08/26/23 18:09 Cognition No cognitive impairment 08/26/23 18:09 Fall Total Score 63 08/26/23 18:09 Level of Risk High Risk 08/26/23 18:09 Problems (Last Reviewed 08/26/23 @ 11:01 by James Cloud MD) Closed trimalleolar fracture of right ankle (Acute 08/26/23) v v v v v v v v v Sending and/or Receiving Nurses: Please use comment section below to note any information pertinent to the patient hand-off not included above. Information / Comments: At 1710 bedside verbal hand-off was provided by OR nurse Reina Majano RN with information from paper hand-off form that is filed in patient's paper chart. Report received from: Reina Majano RN
--- NOTE | 2023-08-26 19:43 | W.PM.HP.N ---
Date of service: 08/26/23 Time of Service: 19:43 Assessment and Plan Assessment and plan (1) Closed trimalleolar fracture of right ankle: Status: Acute Assessment and plan: s/p Right trimalleolar ankle fracture ORIF, medial and lateral malleoli, Open treatment syndesmosis disruption. pain meds, ice, elevation and compression of right surgical wound. activity will be advanced w/ P.T. as per orthopedic guidance regarding non-wt bearing status on right foot Professional time spent interviewing and examining patient, discussion of goals of care with hospital team (care management, nursing and consulting professionals) was 60 minutes. Qualifiers: Encounter type: initial encounter Qualified Code(s): S82.851A - Displaced trimalleolar fracture of right lower leg, initial encounter for closed fracture (2) Pulmonary embolism on right: Status: Resolved Assessment and plan: continue home dose of Elquis 5 mg bid as there has been no interruption in her treatment. She needs to complete a minimum of 3 months therapy. She needs to followup w/ hematology consult to look for causes for her hypercoagulable state. To [place] she [place] [facility] [place]. (3) Hypertension: Assessment and plan: continue propranolol and HCTZ Qualifiers: Hypertension type: primary hypertension Qualified Code(s): I10 - Essential (primary) hypertension (4) GERD (gastroesophageal reflux disease): Assessment and plan: continue omeprazole Qualifiers: Esophagitis presence: esophagitis presence not specified Qualified Code(s): K21.9 - Gastro-esophageal reflux disease without esophagitis (5) Hyperlipidemia: Assessment and plan: cont. atorvastatin Qualifiers: Hyperlipidemia type: unspecified Qualified Code(s): E78.5 - Hyperlipidemia, unspecified (6) Prediabetes: Status: Chronic Assessment and plan: continue metformin; monitor glucose bid History of Present Illness History of Present Illness Chief Complaint: fell in driveway this morning and broke my right ankle Narrative: 67-year-old female with history of essential pretension, hyperlipidemia who had a unprovoked right-sided pulmonary embolism July 12, 2023 with no evidence of right heart strain he was discharged from the emergency department on apixaban which she has been on Eliquis ever since. Today she was walking to her car to go to work when she slipped and fell injuring her right ankle. She sustained a trimalleolar fracture. Last dose of apixaban was at 6 AM this morning. I discussed with Dr. James Cloud, orthopedic surgeon as well as the ED provider perioperative anticoagulation management. This Dr. Cloud felt because of the severity of the trimalleolar fracture is better repaired operatively sooner rather than later. He felt that there would be little bleeding involved with surgical repair of her ankle fracture therefore we decided to proceed with operative repair today rather than delaying surgery to bridge her from apixaban to heparin. Patient did well with her surgery today per Dr. Cloud there was very little bleeding. Patient denies any known coronary heart disease. She is wearing a 30-day cardiac event recorder as part of work-up embolism. She had a subsequent echocardiogram after the pulmonary embolism which showed no structural heart disease. Patient is awaiting outpatient otology consultation at [facility]. She is admitted to the intensive care unit as a medical for patient over exam. She did well with the surgery had no compromise. She will continue with her apixaban has evaluated. Review of Systems All systems reviewed & are unremarkable except as noted in HPI and below PFSH All Active Problems (Updated 08/26/23 @ 20:19 by Crow Kay MD) Prediabetes (Chronic) Closed trimalleolar fracture of right ankle (Acute 08/26/23) Rectal bleeding (Acute) Chronic constipation (Acute) Screening for colon cancer (Acute) IBS (irritable bowel syndrome) (Chronic) Skin nodule (Acute) Obesity (Chronic) Sebaceous cyst (Acute) Skin lesion (Acute) Medical History Tinnitus of both ears Varicose veins of both lower extremities Skin mole Paresthesia of both legs Sciatica Carpal tunnel syndrome on both sides Peripheral edema Morbid obesity Metabolic syndrome Lymphadenopathy Anxiety and depression Headache SVT (supraventricular tachycardia) Chest pain Per pt. states she had it worked up-WNL Intertrigo Snoring Bad odor of urine Dyspepsia Uterine fibroid Postmenopausal bleeding (11/15/13) Meralgia paresthetica of both lower extremities (06/01/18) Chronic bilateral low back pain without sciatica (06/01/18) Internal derangement of right knee Trochanteric bursitis, right hip Degenerative disc disease, lumbar Hypertension GERD (gastroesophageal reflux disease) Hyperlipidemia Knee pain, right Surgical History History of colonoscopy (~04/2023) History of cardiac catheterization 5+ years ago per pt came back WNL Social History Smoking/Tobacco Use Status: Never Smoking risk assessment performed?: Yes Alcohol Intake: current Alcohol Intake frequency: holidays/special occasions only Drug use: Never Substance use type: does not use Housing: house Current gender identity: female Do you feel safe at home: Yes Do you feel safe in your relationship?: Yes Meds Allergies and Home Medications Allergies Allergy/AdvReac Type Severity Reaction Status Date / Time ranitidine HCl [From Zantac] Allergy Intermediate Skin Rash Verified 05/10/23 07:25 Home Medications Medication Instructions Recorded Confirmed Type atorvastatin 40 mg tablet 40 mg PO DAILY 04/26/18 08/26/23 History metformin 500 mg tablet 1,500 mg PO DAILY 04/26/18 08/26/23 History omeprazole 20 mg capsule,delayed 20 mg PO BID 12/15/19 08/26/23 History release propranolol 20 mg tablet 20 mg PO BID 12/15/19 08/26/23 History aspirin 81 mg tablet,delayed 81 mg PO DAILY 12/11/21 08/26/23 History release (Adult Aspirin Regimen) hydrochlorothiazide 12.5 mg capsule 12.5 mg PO DAILY 12/11/21 08/26/23 History lidocaine 5 % topical ointment 1 applic topical TID PRN 12/11/21 08/26/23 History apixaban 5 mg (74 tabs) tablets in 5 mg PO ONCE #74 dose pk 07/12/23 08/26/23 Rx a dose pack (Eliquis DVT-PE Treat 30D Start) magnesium chloride 71.5 mg 143 mg PO DAILY 08/26/23 08/26/23 History (magnesium chloride) tablet,delayed release (Slow-Mag) Exam Narrative Exam Narrative: Alert and oriented x4 HEENT: Atraumatic normocephalic, pupils equally round reactive to light and accommodation, extraocular motion intact, TMs intact, nares moist and patent without exudate or bleeding, oropharynx noninjected without exudate, missing uppers has a few residual teeth in her lower jaw. She does wear dentures. Neck: Supple, nontender, without thyromegaly or lymphadenopathy or JVD. Normal carotid pulses Lungs: Clear to auscultation and percussion Heart: Regular rate and rhythm without murmur rub or gallop. Normal apical impulse. Cardiac event recorder attached to her chest. Abdomen: Nondistended, normal bowel sounds, nontender to palpation or percussion, no organomegaly, no bruits, no palpable masses Genitalia and rectal exam: Deferred Breasts: Deferred Extremities: Normal range of motion with normal strength. No peripheral cyanosis or edema. Normal pulses however I was unable to assess the right leg as her right foot ankle and distal leg are in a splint. Toes of her right foot are exposed and she has normal sensation capillary refill. Neurologic: Grossly normal neurologic function. No facial asymmetry no dysarthric speech no gross cranial nerve abnormalities. Sensory exam grossly intact extremities strength is normal in both upper extremities left lower extremity right lower extremity was not assessed due to her surgery Results Labs 08/26/23 10:50 08/26/23 10:50 Labs: Laboratory Results - last 24 hr 08/26/23 08/26/23 10:50 11:03 WBC 6.22 RBC 4.48 Hgb 13.5 Hct 40.4 MCV 90 MCH 30.1 MCHC 33.4 RDW 12.5 Plt Count 252 MPV 9.5 Immature Gran % 0.6 Neutrophils % 59.8 Lymphocytes % 29.9 Monocytes % 7.6 Eosinophils % 1.6 Basophils % 0.5 Nucleated RBC % 0.0 Absolute Neutrophils 3.72 Absolute Lymphocytes 1.86 Absolute Monocytes 0.47 Absolute Eosinophils 0.10 Absolute Basophils 0.03 Sodium 139 Potassium 3.8 Chloride 104 Carbon Dioxide 25.2 Anion Gap 9.8 BUN 13 Creatinine 0.7 Est GFR (CKD-EPI 2020) 95.32 Glucose 224 H Calcium 9.2 COVID-19 Source Nasal/Nares SARS-CoV-2 (PCR) Negative Last Vital Signs Temp 36.5 C 08/26/23 18:09 Pulse 62 08/26/23 17:16 Resp 18 08/26/23 18:09 BP 150/70 H 08/26/23 17:16 Pulse Ox 99 08/26/23 17:16 Time Spent Time spent with Patient: 55-74 minutes Time was spent: preparing to see the patient(eg.review tests), obtaining and/or reviewing separately otained hiistory, ordering medications,tests, procedures, referring, communicating with other health respiratory care specialist (multiple discussions w/ Dr. Pedro Luis E.D. and pulmonary), indepentently interpreting results and care coordination
[2023-08-26] MEDS: Omeprazole 20 MG CAPCR PO (20:10)
[2023-08-26] MEDS: ceFAZolin 1 GM/50 ML BAG IVPB (20:11)
[2023-08-26] MEDS: Apixaban 5 MG TAB PO (20:11)
[2023-08-26] MEDS: Propranolol 20 MG TAB PO (20:11)
--- NOTE | 2023-08-26 20:23 | W.PC.ACHO ---
Registration Status: ADM IN Primary Language: Preferred Language: Indonesian ED Information & Data Chief Complaint Orthopedic 08/26/23 09:10 Triage Note Pt was getting ready to 08/26/23 08:53 leave for work when she went to walk down her outside stairs and she slipped on the snow and fell. 10 right ankle pain with obvious deformity. CSM+ prior to and after splinting . Splinted with DEBRA splint. Negative LOC. 100 mcg Fentanyl. Medical / Surgical History (Last Reviewed 08/26/23 @ 20:09 by Crow Kay MD) Tinnitus of both ears Varicose veins of both lower extremities Skin mole Paresthesia of both legs Sciatica Carpal tunnel syndrome on both sides Peripheral edema Morbid obesity Metabolic syndrome Lymphadenopathy Anxiety and depression Headache SVT (supraventricular tachycardia) Chest pain Intertrigo Snoring Bad odor of urine Dyspepsia Uterine fibroid Postmenopausal bleeding (11/15/13) Meralgia paresthetica of both lower extremities (06/01/18) Chronic bilateral low back pain without sciatica (06/01/18) Internal derangement of right knee Trochanteric bursitis, right hip Degenerative disc disease, lumbar Hypertension GERD (gastroesophageal reflux disease) Hyperlipidemia Knee pain, right (Last Reviewed 08/26/23 @ 20:09 by Crow Kay MD) History of colonoscopy (~04/2023) History of cardiac catheterization Most Recent Vital Signs Temperature 36.5 C 08/26/23 18:09 Temperature Source Temporal Artery Scan 08/26/23 18:09 Pulse 62 08/26/23 17:16 Respiratory Rate 18 08/26/23 18:09 Respiratory Effort Normal 08/26/23 18:09 Respiratory Depth Normal 08/26/23 18:09 Respiratory Pattern Normal 08/26/23 18:09 Blood Pressure 150/70 H 08/26/23 17:16 Blood Pressure Mean 94 08/26/23 17:16 Blood Pressure Position Supine 08/26/23 08:53 Pulse Oximetry 99 08/26/23 17:16 Respiratory End-tidal CO2 50 08/26/23 16:57 Oxygen Delivery Method Room Air 08/26/23 18:09 Oxygen Flow Rate 0 08/26/23 18:09 Pain Level 8 08/26/23 18:09 Allergies ranitidine HCl [From Zantac] Allergy (Intermediate, Verified 05/10/23 07:25) Skin Rash Precautions Isolation Standard precaution 08/26/23 09:01 Active Medications Generic Name Dose Route Start Last Admin Trade Name Kaylee PRN Reason Stop Dose Admin Apixaban 5 mg 08/26/23 20:00 08/26/23 20:11 Apixaban 5 Mg Tab PO 09/25/23 19:59 5 mg BID ALEJO Administration Ringer's Solution 1,000 mls @ 30 mls/hr 08/26/23 14:30 08/26/23 15:37 IV 09/25/23 14:29 30 mls/hr INFUSION ALEJO Infusion Cefazolin Sodium/Dextrose 1 gm in 50 mls @ 100 mls/hr 08/26/23 18:00 08/26/23 20:11 Ancef Duplex IVPB 08/27/23 10:29 100 mls/hr Q8H ALEJO Administration Lactobacillus Acidophilus/Casei 1 cap 08/26/23 17:29 08/26/23 20:10 L. Acidophilus, Casei, Rhamnosus Cap PO 09/25/23 17:28 1 cap DAILY ALEJO Administration Omeprazole 20 mg 08/26/23 20:00 08/26/23 20:10 Omeprazole 20 Mg Capcr PO 09/25/23 19:59 20 mg BID ALEJO Administration Propranolol HCl 20 mg 08/26/23 20:00 08/26/23 20:11 Propranolol 20 Mg Tab PO 09/25/23 19:59 20 mg BID ALEJO Administration IV IV Catheter Type [Right Peripheral IV Antecubital] IV Catheter Type [Left Peripheral IV Antecubital] IV Catheter Gauge [Right 20 Antecubital] IV Catheter Gauge [Left 20 Antecubital] Diet Orders Category Date Time Status Heart Healthy Eating [DIET] Nutrition 08/26/23 Dinner Active Diagnostics 08/26/23 08/26/23 Range/Units 11:03 10:50 WBC 6.22 (4.4-10.8) 10^3/uL RBC 4.48 (3.93-5.22) 10^6/uL Hgb 13.5 (11.2-15.7) g/dL Hct 40.4 (36.0-46.0) % MCV 90 (80-95) fL MCH 30.1 (27.0-33.0) pg MCHC 33.4 (32.0-36.0) % RDW 12.5 (11.7-14.6) % Plt Count 252 (130-400) 10^3/uL MPV 9.5 (8.0-11.0) fL Immature Gran % 0.6 Neutrophils % 59.8 Lymphocytes % 29.9 Monocytes % 7.6 Eosinophils % 1.6 Basophils % 0.5 Nucleated RBC % 0.0 (0.0-0.3) % Absolute Neutrophils 3.72 (1.2-6.7) 10^3/uL Absolute Lymphocytes 1.86 (1.2-3.4) 10^3/uL Absolute Monocytes 0.47 (0.1-0.8) 10^3/uL Absolute Eosinophils 0.10 (0.0-0.7) 10^3/uL Absolute Basophils 0.03 (0.0-0.2) 10^3/uL Sodium 139 (136-145) mmol/L Potassium 3.8 (3.5-5.1) mmol/L Chloride 104 (98-107) mmol/L Carbon Dioxide 25.2 (21.0-32.0) mmol/L Anion Gap 9.8 (3-11) mmol/L BUN 13 (7-18) mg/dL Creatinine 0.7 (0.55-1.02) mg/dL Est GFR (CKD-EPI 2020) 95.32 (mL/min/1.73m2) Glucose 224 H (74-106) mg/dL Calcium 9.2 (8.5-10.1) mg/dL COVID-19 Source Nasal/Nares SARS-CoV-2 (PCR) Negative (Negative) [id number] Documentation Fingerstick Glucose Start: 08/26/23 13:29 Freq: Status: Complete Protocol: Activity Type Activity Date Activity User E-sign Co-sign Detail Recorded Client Recorded Date Recorded By Document 08/26/23 13:28 BKG DAEMON NVT-BG05 08/26/23 13:29 BKG DAEMON(2) Fingerstick Glucose Start: 08/26/23 16:28 Freq: Status: Active Protocol: Activity Type Activity Date Activity User E-sign Co-sign Detail Recorded Client Recorded Date Recorded By Document 08/26/23 16:26 BKG DAEMON(3) NVT-BG05 08/26/23 16:28 BKG DAEMON(4) Intake and Output - 24 Hour Total 11/09/23 08:11 thru 08/26/23 18:09 Intake Total 400 Balance 400 Weight 100.2 kg Intake: IV 400 Other: Emesis Description None Falls Risk Assessment History of Falls No History 08/26/23 18:09 Contributing Factors Impairments 08/26/23 18:09 Ambulatory Aids Uses ambulatory device + 08/26/23 18:09 Tubes/Lines W/no contributing factors 08/26/23 18:09 Gait Evaluation W/any additional score 08/26/23 18:09 Cognition No cognitive impairment 08/26/23 18:09 Fall Total Score 63 08/26/23 18:09 Level of Risk High Risk 08/26/23 18:09 Problems (Last Reviewed 08/26/23 @ 20:09 by Crow Kay MD) Prediabetes (Chronic) Closed trimalleolar fracture of right ankle (Acute 08/26/23) v v v v v v v v v Sending and/or Receiving Nurses: Please use comment section below to note any information pertinent to the patient hand-off not included above. Information / Comments: Report received from:
[2023-08-27 03:26] VITALS: BP 118/74; PULSE 71; RESP 16; TEMP 37; O2SAT 97
[2023-08-27] MEDS: ceFAZolin 1 GM/50 ML BAG IVPB ×2 (03:34→12:09)
[2023-08-27] MEDS: Normal Saline Flush 10 ML SYR IVP ×3 (03:35→19:50)
[2023-08-27 07:29] VITALS: BP 117/78; PULSE 67; RESP 17; TEMP 36.9; O2SAT 95
[2023-08-27] MEDS: hydroCHLOROthiazide 12.5 MG TAB PO (07:44)
[2023-08-27] MEDS: Propranolol 20 MG TAB PO ×2 (07:44→19:49)
[2023-08-27] MEDS: metFORMIN 500 MG TAB 1500 MG PO (07:45)
[2023-08-27] MEDS: Omeprazole 20 MG CAPCR PO ×2 (07:46→19:49)
[2023-08-27] MEDS: Apixaban 5 MG TAB PO ×2 (07:47→19:49)
[2023-08-27] MEDS: Atorvastatin 40 MG TAB PO (07:47)
[2023-08-27] MEDS: Aspirin E.C. 81 MG TABEC PO (07:47)
[2023-08-27 07:54] LABS: Abs Immature Grans 0.03 10^3/uL (0.0-0.06); Absolute Basophil Count 0.02 10^3/uL (0.0-0.2); Absolute Eosinophil Count 0.01 10^3/uL (0.0-0.7); Absolute Lymphocyte Count 1.59 10^3/uL (1.2-3.4); Absolute Monocyte Count 0.62 10^3/uL (0.1-0.8); Absolute Neutrophil Count 6.56 10^3/uL (1.2-6.7); Basophils % 0.2; Eosinophils % 0.1; HCT 36.4 % (36.0-46.0); HGB 12.1 g/dL (11.2-15.7); Immature Grans % 0.3; MCHC 33.2 % (32.0-36.0); MCV 84 fL (80-95); MPV 8.9 fL (8.0-11.0); Neutrophils % 74.4; Platelet Count 318 10^3/uL (130-400); RBC 4.32 10^6/uL (3.93-5.22); RDW 13.3 % (11.7-14.6); RDW-SD 41.1 fL; WBC 8.83 10^3/uL (4.4-10.8)
[2023-08-27 08:05] LABS: Anion Gap 12.7 mmol/L (3-11); BUN 7 mg/dL (7-18); CO2 28.3 mmol/L (21.0-32.0); CREATININE 0.9 mg/dL (0.55-1.02); Calcium 9.1 mg/dL (8.5-10.1); Chloride 102 mmol/L (98-107); Estimated GFR 70.51 (mL/min/1.73m2); Glucose 138 mg/dL (74-106); Potassium 3.2 mmol/L (3.5-5.1); Sodium 143 mmol/L (136-145)
[2023-08-27 08:45] LABS: Hemoglobin A1C 5.9 % (<5.7)
--- NOTE | 2023-08-27 11:20 | PT.INIE ---
PT Notes Visit Reasons: Right Trimalleolar Ankle Fracture Physical Therapy Inpatient Initial Evaluation Date: 08/27/2023 Referring Doctor: James Cloud MD PT Orders: PT CONSULT: S/P Ortho Surgery. NWB Right ankle Precautions: Fall. Standard. NWB R LE. Patient Profile/Admitting Diagnosis: Patient is a 67-year-old female who sustained a closed trimalleolar fracture of R ankle S/P ORIF and open syndesmosis disruption on postoperative day 1. PMHX: All Active Problems (Updated 08/26/23 @ 20:19 by Crow Kay MD) Prediabetes (Chronic) Closed trimalleolar fracture of right ankle (Acute 08/26/23) Rectal bleeding (Acute) Chronic constipation (Acute) Screening for colon cancer (Acute) IBS (irritable bowel syndrome) (Chronic) Skin nodule (Acute) Obesity (Chronic) Sebaceous cyst (Acute) Skin lesion (Acute) Medical History Tinnitus of both ears Varicose veins of both lower extremities Skin mole Paresthesia of both legs Sciatica Carpal tunnel syndrome on both sides Peripheral edema Morbid obesity Metabolic syndrome Lymphadenopathy Anxiety and depression Headache SVT (supraventricular tachycardia) Chest pain Per pt. states she had it worked up-WNLIntertrigo Snoring Bad odor of urine Dyspepsia Uterine fibroid Postmenopausal bleeding (11/15/13) Meralgia paresthetica of both lower extremities (06/01/18) Chronic bilateral low back pain without sciatica (06/01/18) Internal derangement of right knee Trochanteric bursitis, right hip Degenerative disc disease, lumbar Hypertension GERD (gastroesophageal reflux disease) Hyperlipidemia Knee pain, right Surgical History History of colonoscopy (~04/2023) History of cardiac catheterization 5+ years ago per pt came back WNL Social History/Home Situation: Patient lives with in a private home with 3 steps to enter with rails on both sides. Independent with all aspects of ADLs prior to surgery. 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 Equipment Owned/DME: None Subjective: Complained of pain in R foot and R hip (chronic) with movement and ambulation activity. Reported increased spasm on the R hip and gluteal muscles with level surface ambulation. Objective: General Observation: Supine in bed. present in room. R leg and foot in short leg plaster AO splint. Mental Status: Alert and oriented as to person, place, time, and purpose. Able to pay attention, focus, and respond appropriately. Pain: 7-8/10 at rest; 10/10 with weight bearing Vital Signs: WNL as closley monitored by nursing staff ROM: Right Lower Extremity: Hip flexion WFL. Hip abduction WFL. Knee flexion WFL. Ankle dorsiflexion WFL. Ankle plantarflexion WFL. Left Lower Extremity: Hip flexion WFL. Hip abduction WFL. Knee flexion WFL. Ankle dorsiflexion NT. Ankle plantarflexion NT. Strength: Right Lower Extremity: Hip flexors 4/5. Hip abductors 4/5. Knee flexors 4/5. Knee extensors 4/5. Ankle dorsiflexors NT. Ankle plantarflexors NT. Left Lower Extremity: Hip flexors 5/5. Hip abductors 5/5. Knee flexors 5/5. Knee extensors 5/5. Ankle dorsiflexors 5/5. Ankle plantarflexors 5/5. Bed Mobility/Transfers: Rolling independent Supine to sit independent Sit to stand stand by assist, cues provided for using B UE for support and ensuring WB precutitons Stand to sit stand by assist, cues provided for using B UE for support and ensuring WB precuations Bed to reclining chair stand by assist, cues provided for using B UE for support and ensuring WB precuations Reclining chair to bed stand by assist, cues provided for using B UE for support and ensuring WB precuations Gait: Facilitated safe and correct performance of level surface ambulation 40 feet + 10 feet with contact guard assist using front-wheeled walker with NWB on right LE with sudden increase of pain to 9?10/10 in the right foot and the right hip that subsided with rest. Moderate verbal cues given for limb advancement, weight distribution using front wheeled walker to ensure compliance with WB status, and posture. Stairs: Attempted stair negotiation training beginning with 4 inch step height with minimal assist of 2 ([employer] Kimberli assisted for safety). Patient was able to climb for step but complained of sudden onset 10 out of 10 pain on the right hip that increased her anxiety limited her ability to focus. Deferred further acitivity due to pain increase, worsened anxiety and safty concerns. Balance: Static Sitting: Normal Dynamic Sitting: Normal Static Standing: Fair Dynamic Standing: Fair 9-25 in the eval Special Tests: Mobility Limitations Standardized Measure [facility] AM-PAC 6 clicks Basic Mobility Inpatient Short Form: Raw Score: 19 CMS Score: 42% deficit Informed Consent/Education: Patient was instructed in purpose of PT consult and plan of care. Agreeable to proceed with established PT POC to achieve personal goals. Assessment: Pain level in L leg and foot as well as in R hip limit focus and safe performance of level surface ambulation and stair negotiation at this time. Will make sure to coordinate with nurse for pain pre-medication to maximize functional performance. Patient presents with clinical signs and symptoms consistent with current/admitting diagnoses that have resulted to mobility limitations, gait instability, generalized weakness, and overall ADL decline as demonstrated by the following impairment level findings: 1. Decreased strength to R LE major muscle groups 2. Impaired sitting/standing balance 3. Impaired activity tolerance 4. Limitation of joint range of motion in R ankle and knee 5. Pain in R hip and R leg/fankle with movement at 9-10/10 Impairments are contributing to the following functional limitations: 1. Decline in bed mobility skills 2. Decline in transfer skills 3. Difficulty with ambulation without assistive device and physical assistance 4. Increased completion time for mobility ADL performance 5. Increased risk for falls 6. Difficulty with managing steps alone safely Patient is assessed as a 51993 moderate complexity based on the following: History: 67-year-old [id number] with past medical history as indicated above Examination: Demonstrable impairment in strength, balance, and mobility level with underlying impairments and functional limitations as exhibited above as well as deficit score of 42% utilizing the [facility] Mobility Inpatient Short Form Presentation: Evolving Decision Makin moderate complexity Goals: Goals X1 week 1. Supine-Sit independent 2. Sit-Supine independent 3. Sit-Stand independent 4. Stand-Sit independent with FWW 5. Bed-Chair independent with FWW 6. Chair-Bed independent with FWW 7. Independent gait on level surface with use of FWW for at least 150 feet without report of pain nor dyspnea 8. Independent stair negotiation while holding onto B rails for at least 3 steps without report of pain nor dyspnea 9. Independent with home exercise program 10. Good static and dynamic standing balance/tolerance Plan of Care/Treatment Plan: 1-2x/day, 7 days/week x 1 week. Plan of care has been reviewed with the [employer] providing the service under Physical Therapy direction. Initiate Physical Therapy intervention for pain management as needed, strengthening, bed mobility, transfers, gait, stairs, balance training, and use of assistive device. DISCHARGE RECOMMENDATIONS: [] Home with no services [] [X] Home with services. Patient will benefit from home health PT services in order to progress mobility level using least restrictive assistive ambulatory device, assess home safety, identify additional equipment needs, and establish a functional maintenance program that will increase ability of patient to remain at home. [] Home with outpatient PT [] [] SNF for continued rehabilitation [] [] Detention Care [] [] SNF versus LTC based on ability to participate and progress [] TREATMENT CODE/TIME: 35104 x 20 minutes for 1 unit, 25120 x 18 minutes for 1 unit beginning at 11:20 AM. Thank you for the opportunity to participate in the care of this patient. Rosita Pack PT, DPT, CLT [facility] [place], [place]
[2023-08-27] MEDS: traMADol 50 MG TAB PO ×2 (12:02→19:49)
[2023-08-27] MEDS: Acetaminophen 500 MG TAB 1000 MG PO ×2 (12:02→19:49)
[2023-08-27] MEDS: Potassium Chloride 10 MEQ CAPCR 40 MEQ PO (12:02)
--- NOTE | 2023-08-27 12:23 | W.PM.PROGNOT ---
Date of Service Date of service: 08/27/23 Time of Service: 12: Assessment and Plan Assessment and plan (1) Closed trimalleolar fracture of right ankle: Status: Acute Assessment and plan: s/p Right trimalleolar ankle fracture ORIF, medial and lateral malleoli, Open treatment syndesmosis disruption. POD #1 Pain meds, ice, elevation and compression of right surgical wound. activity will be advanced w/ P.T. as per orthopedic guidance regarding non-wt bearing status on right foot Professional time spent interviewing and examining patient, discussion of goals of care with hospital team (care management, nursing and consulting professionals) was 25 minutes. Qualifiers: Encounter type: initial encounter Qualified Code(s): S82.851A - Displaced trimalleolar fracture of right lower leg, initial encounter for closed fracture (2) Pulmonary embolism on right: Status: Resolved Assessment and plan: Continue Eliquis as previously prescribed to 5 mg twice a day. Patient needs follow-up with hematology at [facility] upon discharge. (3) Hypertension: Assessment and plan: continue propranolol and HCTZ Qualifiers: Hypertension type: primary hypertension Qualified Code(s): I10 - Essential (primary) hypertension (4) GERD (gastroesophageal reflux disease): Assessment and plan: continue omeprazole Qualifiers: Esophagitis presence: esophagitis presence not specified Qualified Code(s): K21.9 - Gastro-esophageal reflux disease without esophagitis (5) Hyperlipidemia: Assessment and plan: cont. atorvastatin Qualifiers: Hyperlipidemia type: unspecified Qualified Code(s): E78.5 - Hyperlipidemia, unspecified (6) Prediabetes: Status: Chronic Assessment and plan: continue metformin; monitor glucose bid (7) Discharge planning issues: Status: Acute Assessment and plan: Discharge plans will be dependent upon how she progresses with physical therapy as an inpatient. She may require short-term SNF placement until she is more mobile and independent in her ADLs. Patient needs to remain nonweightbearing for 6 weeks. Patient will need a wheelchair. When she is able to adequately transfer herself in and out of bed into a wheelchair and transfer self onto and off toilet and shower chair and I think she will be stable enough to return home. Follow-up to be with Dr. James Cloud in 2 weeks. Subjective Subjective Interval history since last seen: Gladys has moderate discomfort in her right ankle but better than prior to her surgical repair of her right trimalleolar fracture. She says that she did not do well for P.T. today when they tried to mobilze her w/ the walker. I have explained to her family ( and sister) that she will probably need a wheelchair to get around and she has to remain nonweightbearing on the right ankle fracture repair for 6 weeks. Exam Narrative Exam Narrative: Gladys is lying in bed she is alert and oriented person place time circumstance. Lungs are clear Heart is regular rate and rhythm Abdomen soft nontender nondistended normal bowel sounds Lower extremities she has obese legs. No pitting edema. Capillary refill is good in the toes of the right foot. Good sensation to light touch. Unable to examine the rest of the right ankle and foot as it is currently in a splint. Normal dorsiflexion plantarflexion of the toes. Objective Last Vital Signs Temp 36.9 C 08/27/23 07:29 Pulse 67 08/27/23 07:29 Resp 17 08/27/23 07:29 BP 117/78 08/27/23 07:29 Pulse Ox 95 08/27/23 07:29 Laboratory Results - last 24 hr 08/27/23 07:35 WBC 8.83 RBC 4.32 Hgb 12.1 Hct 36.4 MCV 84 D MCH 28.0 MCHC 33.2 RDW 13.3 Plt Count 318 MPV 8.9 Immature Gran % 0.3 Neutrophils % 74.4 Lymphocytes % 18.0 Monocytes % 7.0 Eosinophils % 0.1 Basophils % 0.2 Nucleated RBC % 0.0 Absolute Neutrophils 6.56 Absolute Lymphocytes 1.59 Absolute Monocytes 0.62 Absolute Eosinophils 0.01 Absolute Basophils 0.02 Sodium 143 Potassium 3.2 L Chloride 102 Carbon Dioxide 28.3 Anion Gap 12.7 H BUN 7 Creatinine 0.9 Est GFR (CKD-EPI 2020) 70.51 Glucose 138 H Hemoglobin A1c 5.9 H Calcium 9.1 Time Spent with Patient Time Spent with Patient: 25-34 minutes Time was spent: preparing to see the patient(eg.review tests), ordering medications,tests, procedures, referring, communicating with other health client care consultant, indepentently interpreting results, counseling the patient and care coordination
--- NOTE | 2023-08-27 12:25 | PGE_ITS ---
Date of Service Date of service: 08/27/23 Time of Service: 12:25 Assessment and Plan Assessment and plan (1) Closed trimalleolar fracture of right ankle: Status: Acute Assessment and plan: 67-year-old female postop day #1 status post right ankle ORIF with syndesmotic fixation for displaced trimalleolar fracture Patient resting comfortably in chair. Complains of right hip pain, which is chronic. Not involved in the fall or injury. Apprehensive about potential discharge given significant challenges to mobilization. Vital signs and labs are reassuring. Splint clean dry intact with no signs of bleeding. Wiggles toes and strong great toe flexion extension without much difficulty. Sensation exposed toes equal to the contralateral side. Brisk cap refill throughout. Calf nontender, no notable edema, no signs or symptoms of blood clot in either lower extremity. Continue multimodal pain control, physical therapy, plan on nonweightbearing right ankle for at least 6 weeks due to severity of fracture, morbid obesity, poor bone quality, and neuropathy. Reviewed syndesmotic screw fixation with patient, her daughter, her partner with potential removal at about 3-4 months postop. Continue home apixaban as treatment for pulmonary emboli and as DVT prophylaxis with daily aspirin. Please attempt to expedite the outpatient follow-up with [facility] hematology for the unprovoked PE. Continue mechanical DVT prophylaxis with SCDs and/or RODGER hose on the contralateral side Follow-up arranged with Dr. Cloud outpatient in 10-14 days Appreciate medical management Qualifiers: Encounter type: initial encounter Qualified Code(s): S82.851A - Displ aced trimalleolar fracture of right lower leg, initial encounter for closed fracture Objective Last Vital Signs Temp 98.4 F 08/27/23 07:29 Pulse 67 08/27/23 07:29 Resp 17 08/27/23 07:29 BP 117/78 08/27/23 07:29 Pulse Ox 95 08/27/23 07:29 Laboratory Results - last 24 hr 08/27/23 07:35 WBC 8.83 RBC 4.32 Hgb 12.1 Hct 36.4 MCV 84 D MCH 28.0 MCHC 33.2 RDW 13.3 Plt Count 318 MPV 8.9 Immature Gran % 0.3 Neutrophils % 74.4 Lymphocytes % 18.0 Monocytes % 7.0 Eosinophils % 0.1 Basophils % 0.2 Nucleated RBC % 0.0 Absolute Neutrophils 6.56 Absolute Lymphocytes 1.59 Absolute Monocytes 0.62 Absolute Eosinophils 0.01 Absolute Basophils 0.02 Sodium 143 Potassium 3.2 L Chloride 102 Carbon Dioxide 28.3 Anion Gap 12.7 H BUN 7 Creatinine 0.9 Est GFR (CKD-EPI 2020) 70.51 Glucose 138 H Hemoglobin A1c 5.9 H Calcium 9.1 Time Spent with Patient Time Spent with Patient: <25 minutes Time was spent: preparing to see the patient(eg.review tests), ordering medications,tests, procedures, referring, communicating with other health rn coronary care unit, indepentently interpreting results, counseling the patient and care coordination
[2023-08-27 12:42] VITALS: BP 112/71; PULSE 75; RESP 18; TEMP 37.3; O2SAT 94
--- NOTE | 2023-08-27 14:39 | INITIAL_ITS ---
Date of service: 08/27/23 Time of Service: 15:54 Care Management Initial Assmt Initial Assessment REASON FOR HOSPITALIZATION:: Closed trimalleolar fracture of R ankle PREVIOUS FUNCTIONAL STATUS/SOCIAL/FAMILY SUPPORTS:: Gladys lives in [place] with her , Campos. She has supportive family, including brothers and sisters who live nearby. 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 She is independent at baseline. CURRENT FUNCTIONAL STATUS:: Gladys was sitting up in her chair when CM met with her. She stated that she had surgery yesterday, and she is feeling good today. She reported that per MD, she will likely remain at [facility] for 24-48H, and she will continue to work with PT. Per report, she will be non weight bearing for 6 weeks. She stated that she has never had an injury this severe, and she has never been out of work for that amount of time. She reported that she has been in communication with her employer, and will work with HR for support while she is out of work. She stated that her was able to find a w/c in the community for her to use, and he will also secure a commode, but she will need a FWW, which PT will provide. Gladys stated that she will stay with her sister, Apolonia, temporarily after discharge, as her own home has several stairs to navigate, which will be difficult for her while she is non weight bearing. CM will continue to follow. ADVANCE DIRECTIVES:: Not on file; CM will offer forms. Has patient been provided with info about the portal/API?: Yes Did the patient sign up for the portal?: No CODE STATUS:: Full Code INSURANCE COVERAGE / FINANCIAL ISSUES:: BC/BS. [facility] CURRENT HOME/COMMUNITY SERVICES/EQUIPMENT:: No current services. Her has found a w/c from the community, and is planning to purchase a commode. PRIMARY CARE PHYSICIAN:: Denise Nugent POTENTIAL DISCHARGE NEEDS:: Evaluations for further needs, follow up appointments. PATIENT/FAMILY EDUCATION NEEDS:: Review discharge instructions and limitations, discussion of self care needs. ANTICIPATED BARRIERS TO DISCHARGE:: none. TRANSPORTATION:: Via private vehicle by family PLAN:: Anticipate Gladys will return home once medically cleared. She will have a FWW, supplied by PT. She will be driven home via private vehicle by family, and she will follow up with Ortho, her PCP and her discharge plan of care. CM will continue to follow. PFSH All Active Problems (Updated 08/27/23 @ 16:25 by Crow Kay MD) Discharge planning issues (Acute) Prediabetes (Chronic) Closed trimalleolar fracture of right ankle (Acute 08/26/23) Rectal bleeding (Acute) Chronic constipation (Acute) Screening for colon cancer (Acute) IBS (irritable bowel syndrome) (Chronic) Skin nodule (Acute) Obesity (Chronic) Sebaceous cyst (Acute) Skin lesion (Acute) Medical History Tinnitus of both ears Varicose veins of both lower extremities Skin mole Paresthesia of both legs Sciatica Carpal tunnel syndrome on both sides Peripheral edema Morbid obesity Metabolic syndrome Lymphadenopathy Anxiety and depression Headache SVT (supraventricular tachycardia) Chest pain Per pt. states she had it worked up-WNL Intertrigo Snoring Bad odor of urine Dyspepsia Uterine fibroid Postmenopausal bleeding (11/15/13) Meralgia paresthetica of both lower extremities (06/01/18) Chronic bilateral low back pain without sciatica (06/01/18) Internal derangement of right knee Trochanteric bursitis, right hip Degenerative disc disease, lumbar Hypertension GERD (gastroesophageal reflux disease) Hyperlipidemia Knee pain, right Surgical History History of colonoscopy (~04/2023) History of cardiac catheterization 5+ years ago per pt came back WNL Social History Smoking/Tobacco Use Status: Never Smoking risk assessment performed?: Yes Alcohol Intake: current Alcohol Intake frequency: holidays/special occasions only Drug use: Never Substance use type: does not use Housing: house Current gender identity: female Do you feel safe at home: Yes Do you feel safe in your relationship?: Yes
[2023-08-27 15:55] VITALS: BP 106/64; PULSE 74; RESP 18; TEMP 37.2; O2SAT 96
--- NOTE | 2023-08-27 16:20 | CHAPLAIN ---
Gladys was resting in bed when I visited. I explained my role and offered support. Gladys was visiting with a family members (?).
[2023-08-27 19:49] VITALS: BP 103/63; PULSE 76; RESP 18; TEMP 37.1; O2SAT 95
[2023-08-27 23:14] VITALS: BP 102/67; PULSE 61; RESP 18; TEMP 36.4; O2SAT 96
[2023-08-28 03:22] VITALS: BP 118/73; PULSE 68; RESP 18; TEMP 36.3; O2SAT 98
[2023-08-28 07:13] VITALS: BP 120/70; PULSE 68; RESP 18; TEMP 36.8; O2SAT 95
[2023-08-28] MEDS: traMADol 50 MG TAB PO (07:15)
[2023-08-28] MEDS: hydroCHLOROthiazide 12.5 MG TAB PO (07:15)
[2023-08-28] MEDS: metFORMIN 500 MG TAB 1500 MG PO (07:15)
[2023-08-28] MEDS: Atorvastatin 40 MG TAB PO (07:15)
[2023-08-28] MEDS: Omeprazole 20 MG CAPCR PO ×2 (07:15→19:56)
[2023-08-28] MEDS: Aspirin E.C. 81 MG TABEC PO (07:15)
[2023-08-28] MEDS: Propranolol 20 MG TAB PO ×2 (07:16→19:56)
[2023-08-28] MEDS: Normal Saline Flush 10 ML SYR IVP ×2 (07:17→08:58)
[2023-08-28] MEDS: Apixaban 5 MG TAB PO ×2 (07:17→19:56)
--- NOTE | 2023-08-28 09:53 | PTTR_ITS ---
Date of service: 08/28/23 Time of Service: 09:53 PT Notes Visit Reasons: Right Trimalleolar Ankle Fracture Physical Therapy Inpatient Treatment Note Date: 08/28/2023 PT Orders: PT CONSULT: S/P Ortho Surgery. NWB Right ankle Precautions: Fall. Standard. NWB R LE. Proper foot wear on L LE when OOB. Subjective: Anxious about trying out the stairs again today. Hoping that she can get chair lift assist when she is medically ready to go home. Per sister Apolonia, patient and patient's will be staying at Apolonia's house for as long as needed. Apolonia adds that they will be getting patient a bedside commode and a wheelchair to make sure that she is safe. Happy that her pain level is being managed better. Objective: General Observation: Sitting on bedside recliner. Nitesh and sister Apolonia present in room. R leg and foot in short leg plaster AO splint. Mental Status: Alert and oriented as to person, place, time, and purpose. Able to pay attention, focus, and respond appropriately. Pain: 7/10 in R leg and ankle with weight bearing Vital Signs: WNL as closely monitored by nursing staff Bed Mobility/Transfers: (Ensured that patient has proper footwear with good cushioning to allow for safer and better performance with the least pain) Rolling independent Supine to sit independent Sit to stand stand by assist, cues provided for using B UE for support and ensuring WB precutitons Stand to sit stand by assist, cues provided for using B UE for support and ensuring WB precuations Bed to reclining chair stand by assist, cues provided for using B UE for support and ensuring WB precuations Reclining chair to bed stand by assist, cues provided for using B UE for support and ensuring WB precuations THERA EX: Guided patient with safe and correct performance of room exercises to maintain joint flexibility and optimize muscel length: Access Code: [email or web address] URL: [email or web address] Date: 08/28/2023 Prepared by: Rosita Pack Exercises - Supine Quadricep Sets - 1 x daily - 7 x weekly - 1 sets - 10 reps - 5 hold - Seated Gluteal Sets - 1 x daily - 7 x weekly - 1 sets - 10 reps - 5 hold - Seated Toe Curl - 1 x daily - 7 x weekly - 1 sets - 10 reps - 5 hold - Ankle Pumps with Compression Garment - 1 x daily - 7 x weekly - 1 sets - 10 reps - 5 hold - Supine Isometric Hip Adduction with Pillow at Knees - 1 x daily - 7 x weekly - 1 sets - 10 reps - 5 hold Gait: Facilitated safe and correct performance of level surface ambulation 25 feet + 25 feet with contact guard assist using front-wheeled walker with NWB on right LE with no sudden increase in pain, staying at 6-7/10. Moderate verbal cues given for limb advancement, weight distribution using front wheeled walker to ensure compliance with WB status, and posture. Needed onse seated rest due to fatigue. Stairs: Deferred Balance: Static Sitting: Normal Dynamic Sitting: Normal Static Standing: Fair Dynamic Standing: Fair ASSESSMENT: Performed much better with Nurse Tran pre-medicating patient for pain. Ensure that proper footwear is worn on the L side to make sure that good cushioning for L LE and weight bearing is maximized while R LE is NWB. Re- adjusted walker height today too to allow for better mechanical advantage for B shoulder/elbow extensors while maximizing proper posture. DISCHARGE RECOMMENDATIONS: [] Home with no services [] [X] Home with services. Patient will benefit from home health PT services in order to progress mobility level using least restrictive assistive ambulatory device, assess home safety, identify additional equipment needs, and establish a functional maintenance program that will increase ability of patient to remain at home. [] Home with outpatient PT [] [] SNF for continued rehabilitation [] [] Chairman & Chief Executive Officer Care [] [] SNF versus LTC based on ability to participate and progress [] [X] Will need FWW to maixmize indpendence and reduce fall risk at home. TREATMENT CODE/TIME: 70439 x 30 minutes for 2 unit, 24020 x 15 minutes for 1 unit beginning at 9:53 AM.
[2023-08-28] MEDS: Magnesium Chloride 64 MG TABCR 128 MG PO (10:17)
[2023-08-28 11:12] VITALS: BP 116/72; PULSE 65; RESP 16; TEMP 37.1; O2SAT 96
[2023-08-28] MEDS: Acetaminophen 500 MG TAB 1000 MG PO ×2 (11:18→21:32)
--- NOTE | 2023-08-28 12:57 | DI.VRAD_ITS ---
PROCEDURE INFORMATION: Exam: XR Right Ankle Exam date and time: 08/28/2023 12:34 PM Age: 67 years old Clinical indication: Ankle; Right; Prior surgery; Surgery date: 3-7 days post-operative; Surgery type: S/P trimalleolar fracture repair, increased pain TECHNIQUE: Imaging protocol: Radiologic exam of the right ankle. Views: 3 or more views. COMPARISON: XA XR ANKLE RT 2V 08/26/2023 2:48 PM FINDINGS: Bones/joints: Two bone screws distal tibia. Screw plate distal fibula with 2 syndesmosis screws into the tibia. Bony structures in anatomic alignment. Small plantar and Achilles spurs. Soft tissues: Normal. Other findings: Cast in place. IMPRESSION: Bony structures in anatomic alignment. Dictated and Authenticated by: Boone Gallegos MD. [facility]ing[facility] Rahul Maria MD
--- NOTE | 2023-08-28 14:16 | PGE_ITS ---
Date of Service Date of service: 08/28/23 Time of Service: 14:16 Assessment and Plan Assessment and plan (1) Closed trimalleolar fracture of right ankle: Status: Acute Assessment and plan: s/p Right trimalleolar ankle fracture ORIF, medial and lateral malleoli, Open treatment syndesmosis disruption. POD #2 Pain meds, ice, elevation and compression of right surgical wound. Patient has been progressing today w/ P.T. w/ use of walker in the room. I told the patient and her sister that she needs to remain non-weight bearing for 6 weeks. She will get around w/ use of wheel chair. She will use the walker to pivot from the bed to the bedside commode but if she needs to move further about the house she should use a WC Professional time spent interviewing and examining patient, discussion of goals of care with hospital team (care management, nursing and consulting professionals) was 20 minutes. Qualifiers: Encounter type: initial encounter Qualified Code(s): S82.851A - Displaced trimalleolar fracture of right lower leg, initial encounter for closed fracture (2) Pulmonary embolism on right: Status: Resolved Assessment and plan: Continue Eliquis as previously prescribed to 5 mg twice a day. Patient needs follow-up with hematology at [facility] [place] upon discharge. (3) Hypertension: Assessment and plan: continue propranolol and HCTZ Qualifiers: Hypertension type: primary hypertension Qualified Code(s): I10 - Essential (primary) hypertension (4) GERD (gastroesophageal reflux disease): Assessment and plan: continue omeprazole Qualifiers: Esophagitis presence: esophagitis presence not specified Qualified Code(s): K21.9 - Gastro-esophageal reflux disease without esophagitis (5) Hyperlipidemia: Assessment and plan: cont. atorvastatin Qualifiers: Hyperlipidemia type: unspecified Qualified Code(s): E78.5 - Hyperlipidemia, unspecified (6) Prediabetes: Status: Chronic Assessment and plan: continue metformin; monitor glucose bid. Glycohemoglobin A1C is 5.9% (7) Discharge planning issues: Status: Acute Assessment and plan: Plans will be for discharge home w/ home P.T. and nursing and O.T. Follow-up to be with Dr. James Cloud in 2 weeks. Family will have to arrange a home assist to get her in and out of the home for her clinic appointment. Subjective Subjective Interval history since last seen: Patient is having a better day today. She ambulated w/ walker around her room and to the doorway while remaining non-weight bearing (NWB) on her right foot. Yesterday (unknown to me) she had stumbled in P.T. while attempting stairs and put weight on the right foot. We had her do an xray today, this showed good alignment of the fracture. I have increased her pain medications. She would like to go home. I told her that if she continues to improve for P.T. then she could probably go home tomorrow. She will be staying w/ her sister. However, she does have 4 steps to get into her sister's home so she will need either to be transported by ambulance home or she will need a call for a lift assist from her local EMS to get her back into her home. Exam Narrative Exam Narrative: Gladys is sitting up in her chair, pain seems better today. she is alert and conversing w/ her sister Lungs: clear Heart: RRR Abdomen: soft, nontender, normal bowel sounds (she has passed flatus but no BM yet. last BM was prior to her admission RLE ankle and foot are in a splint but toes have good movement adn feeling and good capillary refill Objective Last Vital Signs Temp 37.1 C 08/28/23 11:12 Pulse 65 08/28/23 11:12 Resp 16 08/28/23 11:12 BP 116/72 08/28/23 11:12 Pulse Ox 96 08/28/23 11:12 Time Spent with Patient Time Spent with Patient: <25 minutes Time was spent: preparing to see the patient(eg.review tests), ordering medications,tests, procedures, referring, communicating with other health patient care director, indepentently interpreting results, counseling the patient and care coordination
[2023-08-28 14:35] VITALS: BP 110/70; PULSE 66; RESP 18; TEMP 37; O2SAT 95
[2023-08-28 14:54] LABS: Lab Add On Test DONE
[2023-08-28 15:01] LABS: Magnesium 1.8 mg/dL (1.8-2.4)
--- NOTE | 2023-08-28 15:04 | DI.RAD_ITS ---
Exam(s) XR ANKLE RT COMPLETE EXAM: XR ANKLE RT COMPLETE CLINICAL HISTORY: s/p trimalleolar fracture repair, increased pain. TECHNIQUE: 2D digital imaging was performed. COMPARISON: CR XR ANKLE RT COMPLETE from 08/26/2023 FINDINGS: 3 views There has been interval ORIF. There are 2 screws across the medial malleolus fracture site and a lat eral fixation plate across the distal fibular fracture site with 2 syndesmotic level screws extending from the fibular plate into the tibia. There is improved alignment of the previously described fracture fragments. Talar dome again unremar kable. Prominent inferior calcaneal spur again noted. IMPRESSION: Post ORIF. Improved alignment. DATA REPOSITORY: RADIATION DOSE DELIVERED:
[2023-08-28] MEDS: oxyCODONE 5 MG TAB PO (17:01)
[2023-08-28 19:39] VITALS: BP 127/79; PULSE 74; RESP 18; TEMP 36.4; O2SAT 97
[2023-08-28] MEDS: Docusate Sodium 100 MG CAP PO (19:57)
[2023-08-28] MEDS: Potassium Chloride 10 MEQ CAPCR 20 MEQ PO (19:57)
[2023-08-28] MEDS: Senna TAB 1 TAB PO (21:31)
[2023-08-28 23:02] VITALS: BP 127/69; PULSE 71; RESP 18; TEMP 36.7; O2SAT 96
[2023-08-29 04:06] VITALS: BP 114/63; PULSE 75; RESP 18; TEMP 37; O2SAT 93
[2023-08-29 07:51] VITALS: BP 123/76; PULSE 70; RESP 18; TEMP 36.9; O2SAT 96
[2023-08-29 08:03] LABS: Abs Immature Grans 0.02 10^3/uL (0.0-0.06); Absolute Basophil Count 0.03 10^3/uL (0.0-0.2); Absolute Eosinophil Count 0.09 10^3/uL (0.0-0.7); Absolute Lymphocyte Count 1.98 10^3/uL (1.2-3.4); Absolute Monocyte Count 0.54 10^3/uL (0.1-0.8); Absolute Neutrophil Count 4.01 10^3/uL (1.2-6.7); Basophils % 0.4; Eosinophils % 1.3; HCT 34.9 % (36.0-46.0); HGB 11.2 g/dL (11.2-15.7); Immature Grans % 0.3; Lymphocytes % 29.7; MCHC 32.1 % (32.0-36.0); MCV 87 fL (80-95); MPV 9.2 fL (8.0-11.0); Monocytes % 8.1; Neutrophils % 60.2; Platelet Count 296 10^3/uL (130-400); RDW 13.5 % (11.7-14.6); RDW-SD 43.3 fL; WBC 6.67 10^3/uL (4.4-10.8)
[2023-08-29] MEDS: Omeprazole 20 MG CAPCR PO (08:07)
[2023-08-29] MEDS: Potassium Chloride 10 MEQ CAPCR 20 MEQ PO (08:07)
[2023-08-29] MEDS: Polyethylene Glycol 3350 17 GM PACKET PO (08:07)
[2023-08-29] MEDS: hydroCHLOROthiazide 12.5 MG TAB PO (08:08)
[2023-08-29] MEDS: Acetaminophen 500 MG TAB 1000 MG PO ×2 (08:08→14:23)
[2023-08-29] MEDS: Atorvastatin 40 MG TAB PO (08:08)
[2023-08-29] MEDS: metFORMIN 500 MG TAB 1500 MG PO (08:08)
[2023-08-29] MEDS: Propranolol 20 MG TAB PO (08:08)
[2023-08-29] MEDS: Apixaban 5 MG TAB PO (08:08)
[2023-08-29] MEDS: Docusate Sodium 100 MG CAP PO (08:08)
[2023-08-29] MEDS: Magnesium Chloride 64 MG TABCR 128 MG PO (08:08)
[2023-08-29] MEDS: Aspirin E.C. 81 MG TABEC PO (08:08)
[2023-08-29] MEDS: traMADol 50 MG TAB 100 MG PO ×2 (08:09→14:24)
[2023-08-29 08:19] LABS: Anion Gap 6.6 mmol/L (3-11); BUN 6 mg/dL (7-18); CO2 30.4 mmol/L (21.0-32.0); CREATININE 0.8 mg/dL (0.55-1.02); Calcium 8.9 mg/dL (8.5-10.1); Chloride 103 mmol/L (98-107); Estimated GFR 81.21 (mL/min/1.73m2); Glucose 128 mg/dL (74-106); Potassium 3.5 mmol/L (3.5-5.1); Sodium 140 mmol/L (136-145)
[2023-08-29 11:10] VITALS: BP 115/71; PULSE 64; RESP 18; TEMP 36.8; O2SAT 97
--- NOTE | 2023-08-29 13:56 | W.PM.DS.N ---
Date of service: 08/29/23 Time of Service: 14:15 DS: Diagnosis Discharge Diagnosis (1) Closed trimalleolar fracture of right ankle: Status: Acute Asessment and Plan: s/p Right trimalleolar ankle fracture ORIF, medial and lateral malleoli, and Open treatment syndesmosis disruption after sustaining mechanical fall and fracture on 08/26/23, performed by Dr. James Cloud, postoperative recovery was uneventfuly except during a P.T. session while trying to learn to navigate stairs she inadvertently applied weight bearing on the right foot and had severe pain. Follow up xray of her right ankle and foot did not show any disruption of her surgical repair. Pain has since improved. She is using Tramadol 100 mg po q4h prn pain (2) Pulmonary embolism on right: Status: Resolved Asessment and Plan: prior unprovoked pulmonary embolism on 07/12/23 treated w/ Eliquis 10 mg bid for the first week and has been on 5 mg bid ever since. There was no disruption in her treatment for her surgery continues on Eliquis at the same dose. She still has yet to get an appointment w/ hematology at [facility] to pursue further evaluation for hypercoagulable disorder/etiology of her P.E. (3) Hypertension: Asessment and Plan: no change in her home meds, continue propranolol 20 mg bid and HCTZ 12.5 mg daily. she should also take potassim and magnesium to prevent hypokalemia and hypomagnesemia. (4) GERD (gastroesophageal reflux disease): Asessment and Plan: no change in her home meds, cont. omeprazole 20 mg bid (5) Hyperlipidemia: Asessment and Plan: no change in her home meds, cont. atorvastatin (6) Prediabetes: Status: Chronic Asessment and Plan: no change in her home meds, continue metformin 1500 mg daily (7) Discharge planning issues: Status: Acute Asessment and Plan: patient will be dc to her sister's home in [facility] will make visits w/ nursing, P.T. and O.T. Discharge Plan Disposition Patient Disposition: Home W/Home Health Services Condition: Improving Discharge Details Reason For Visit: Right Trimalleolar Ankle Fracture Admit Date/Time: 08/26/23 11:49 Admit Provider: Crow Kay Attending Provider: James Cloud [facility] Hospital Course: See H&P and OR note for details of presentation and treatment. Patient had surgical ORIF of right trimalleolar fracture on 08/26/23 which was uncomplicated. Home Meds and New Rx's Prescriptions: New tramadol 100 mg tablet 100 mg PO Q6H PRNQty: 30 0RF oxycodone 5 mg tablet 5 mg PO Q4H PRN PRNQty: 20 0RF Rx Instructions: one tablet every 4 hr as needed for severe pain, not relieved by tylenol or tramadol Continued atorvastatin 40 MG tablet 40 mg PO DAILY metformin 500 MG tablet 1,500 mg PO DAILY hydrochlorothiazide 12.5 mg capsule 12.5 mg PO DAILY aspirin [Adult Aspirin Regimen] 81 mg tablet,delayed release (DR/EC) 81 mg PO DAILY lidocaine 5 % ointment 1 applic topical TID PRN omeprazole 20 mg Capsule,Delayed Release(Dr/Ec) 20 mg PO BID propranolol 20 mg Tablet 20 mg PO BID Eliquis DVT-PE Treat 30D Start 5 mg (74 tabs) tablets,dose pack 5 mg PO ONCE Qty: 74 0RF Rx Instructions: New diagnosis of PE. Please begin 10 mg twice daily for 1 week and then 5 mg daily. Slow-Mag 71.5 mg tablet,delayed release (DR/EC) 143 mg PO DAILY Patient Comments: Take 2 tablet by mouth once a day Discharge Instructions Instructions: Ankle Fracture (DC), ORIF (DC) Additional Instructions: You had surgical repair of a trimalleollar fracture of your right ankle, this was performed by Dr. James Cloud on 08/26/23. He is advising you to not bear any weight on this right foot for 6 weeks. You may pivot on your non-operated foot to balance getting out of bed to wheel chair or to ambulate w/ a walker but you must not put weight down on your right foot as this could disrupt the repair. Please keep your follow up appointment w/ Dr. Cloud on 09/07 as noted below. You have been prescribed two different narcotic pain medications to help w/ your pain. You may use Tylenol extra strength for mild pain. Use the Tramadol as directed for moderate pain that is not controlled w/ the Tylenol. For severe pains not controlled by the Tramadol, you may use oxycodone as directed. Do not take the Tramadol and oxycodone at the same time. If you have taken the Tramadol and pain is not relieved w/in an hour then you may try the oxycodone. Be aware that narcotic medications can cause constipation, therefore be sure to take a stool softener or laxative to prevent severe constipation. Continue all of your home medications particularly the apixaban to prevent further blood clots. Stand Alone Forms: Nursing Discharge Form Referrals: James Cloud MD [ [facility] STAFF PHYSICIAN] - 09/07/23 2:30 pm Activity:: no wt bear on R. foot Equipment/Supplies:: Walker Diet:: Normal Diet Discharge Orders Discharge Orders: Discharge Order (Routine); Ordered 08/29/23 Ordered By: Crow Kay DS: Summary Time Spent with Patient providing and/or coordinating discharge services: Greater than 30 minutes Status at Discharge Functional status at discharge: wheelchair bound Overall status at discharge: patient is progressing back to baseline Mental Status: mental status grossly normal Speech and Movement: speech and movement normal Mood: congruent mood Affect: normal affect Exam Narrative Exam Narrative: Gladys is sitting up in he chair, no pain currenly, no dyspnea Lungs: clear Heart: RRR, no murmur, rub or gallop Abdomen: nondistended, soft, normal bowel sounds Extremities: RLE in splint, good capillary refill in the toes, good movement of toes and normal sensation; no calf or thigh swelling Psych Mental Status: mental status grossly normal Speech and Movement: speech and movement normal Mood: congruent mood Affect: normal affect DS: Data Vitals/I&O Vitals and I&O: Vital Signs Temperature 36.8 C 08/29/23 11:10 Temperature Source Tympanic 08/29/23 11:10 Pulse 64 08/29/23 11:10 Pulse Rhythm Regular 08/29/23 08:10 Respiratory Rate 18 08/29/23 11:10 Respiratory Effort Normal, Non-Labored 08/29/23 08:10 Respiratory Depth Normal 08/29/23 08:10 Respiratory Pattern Normal 08/29/23 08:10 Blood Pressure 115/71 08/29/23 11:10 Blood Pressure Mean 97 08/26/23 20:15 Blood Pressure Position Supine 08/26/23 08:53 Pulse Oximetry 97 08/29/23 11:10 Respiratory End-tidal CO2 50 08/26/23 16:57 Oxygen Delivery Method Room Air 08/29/23 11:10 Oxygen Flow Rate 0 08/29/23 11:10 Pain Level 4 08/29/23 11:10 Intake & Output 08/28/23 08/29/23 08/29/23 23:59 11:59 23:59 Intake Total 240 / 1060 1230 / 1470 240 / 1470 Output Total 200 / 200 400 / 400 Balance 40 / 860 830 / 1070 240 / 1070 Intake: Oral 240 / 1030 1230 / 1470 240 / 1470 Output: Urine 200 / 200 400 / 400 Other: Urine Color Yellow Yellow Urine Appearance Clear Clear Urine Odor None Normal Comment small amount Voiding Methods Bedside Commode Data Completed and Pending Labs on day of discharge: Labs from last 24 hours 08/29/23 08/28/23 08/27/23 07:10 Unknown 07:35 WBC 6.67 RBC 4.00 Hgb 11.2 Hct 34.9 L MCV 87 MCH 28.0 MCHC 32.1 RDW 13.5 Plt Count 296 MPV 9.2 Immature Gran % 0.3 Neutrophils % 60.2 Lymphocytes % 29.7 Monocytes % 8.1 Eosinophils % 1.3 Basophils % 0.4 Nucleated RBC % 0.0 Absolute Neutrophils 4.01 Absolute Lymphocytes 1.98 Absolute Monocytes 0.54 Absolute Eosinophils 0.09 Absolute Basophils 0.03 Sodium 140 Potassium 3.5 Chloride 103 Carbon Dioxide 30.4 Anion Gap 6.6 BUN 6 L Creatinine 0.8 Est GFR (CKD-EPI 2020) 81.21 Glucose 128 H Calcium 8.9 Magnesium 1.8 Add-On Test Request DONE PFS All Active Problems (Updated 08/27/23 @ 16:25 by Crow Kay MD) Discharge planning issues (Acute) Prediabetes (Chronic) Closed trimalleolar fracture of right ankle (Acute 08/26/23) Rectal bleeding (Acute) Chronic constipation (Acute) Screening for colon cancer (Acute) IBS (irritable bowel syndrome) (Chronic) Skin nodule (Acute) Obesity (Chronic) Sebaceous cyst (Acute) Skin lesion (Acute) Medical History Tinnitus of both ears Varicose veins of both lower extremities Skin mole Paresthesia of both legs Sciatica Carpal tunnel syndrome on both sides Peripheral edema Morbid obesity Metabolic syndrome Lymphadenopathy Anxiety and depression Headache SVT (supraventricular tachycardia) Chest pain Per pt. states she had it worked up-WNL Intertrigo Snoring Bad odor of urine Dyspepsia Uterine fibroid Postmenopausal bleeding (11/15/13) Meralgia paresthetica of both lower extremities (06/01/18) Chronic bilateral low back pain without sciatica (06/01/18) Internal derangement of right knee Trochanteric bursitis, right hip Degenerative disc disease, lumbar Hypertension GERD (gastroesophageal reflux disease) Hyperlipidemia Knee pain, right Surgical History History of colonoscopy (~04/2023) History of cardiac catheterization 5+ years ago per pt came back WNL Social History Smoking/Tobacco Use Status: Never Smoking risk assessment performed?: Yes Alcohol Intake: current Alcohol Intake frequency: holidays/special occasions only Drug use: Never Substance use type: does not use Housing: house Current gender identity: female Do you feel safe at home: Yes Do you feel safe in your relationship?: Yes Time Spent with Patient Time Spent with Patient: <45 minutes Time was spent: preparing to see the patient(eg.review tests), ordering medications,tests, procedures (Rx for oxycodone and Tramadol), referring, communicating with other health healthcare insurance sales agent, indepentently interpreting results, counseling the patient (and family, sister and ) and care coordination
--- NOTE | 2023-08-29 14:34 | PT.DS ---
PT Diagnosis: Troch bursitis, ITB syndrome, chronic LBP MD Diagnosis: R troch bursitis, right knee pain Weeks Elapsed: week(s) and 0 day(s) Patient Location: Med Surg Referring Provider: Date of Service: August 29, 2023 2:34 pm PT Notes Visit Reasons: Right Trimalleolar Ankle Fracture Inpatient Physical Therapy Discharge Summary Non-treatment thus no charge Dates: 08/29/2023 Dates of Service: SUBJECTIVE: I feel ready to go ASSESSMENT: Pt. being prepared for discharge home(to her daughters home with her daughter). She is being met by [facility] to be transfered into her home. Before discharge She is observed indep ambulating 6' with RW, sit to stand from commode to RW and stand to sit to chair NWB right. She is able to wiggle toes. Knee extension x 5 added to HEP every 2 hours and advised to increase HEP as able. This is communicated with her daughter as well. D/c skilled PT at this time. GOALS :all met except for distance of ambulation DISCHARGE PLAN/RECOMMENDATIONS: Home with services PT
--- NOTE | 2023-08-29 15:03 | PDOC.HHF2F_ITS ---
Home Health Referral Home Health Orders Clinical synopsis of why skilled professionals are needed: s/p Right trimalleolar ankle fracture ORIF, medial and lateral malleoli, and Open treatment syndesmosis disruption after sustaining mechanical fall and fracture on 08/26/23, performed by Dr. James Cloud, postoperative recovery was uneventfuly except during a P.T. session while trying to learn to navigate stairs she inadvertently applied weight bearing on the right foot and had severe pain. Follow up xray of her right ankle and foot did not show any disruption of her surgical repair. Pain has since improved. She is using Tramadol 100 mg po q4h prn pain prior unprovoked pulmonary embolism on 07/12/23 treated w/ Eliquis 10 mg bid for the first week and has been on 5 mg bid ever since. There was no disruption in her treatment for her surgery continues on Eliquis at the same dose. She still has yet to get an appointment w/ hematology at [facility] to pursue further evaluation for hypercoagulable disorder/etiology of her P.E. Patient is non-weight bearing on her right foot (the operated ankle) x 6 weeks. She need home physical therapy and home occupational therapy to work w/ her to improve her upper body strength and strength and balance in her left leg/foot so she can safely pivot in and out of bed or chairs to her wheel chair. She may use walker to transfer but should not bear any weight on the right foot. Nursing needs to asses her pain control, monitor her blood pressure and pulse and to assess her compliance w/ her meds. Patient to have follow up w/ Dr. James Cloud on 09/07/23 at 2:30 pm. Medical diagnosis necessitation home health referral: Right trimalleolar fracture s/p Right trimalleolar ankle fracture ORIF, medial and lateral malleoli, CPT #[id number] and Open treatment syndesmosis disruption, CPT #[id number] performed on 08/26/23 pulmonary embolism, treated w/ Eliquis Registered Nurse: Check all that apply Instruct on new or changed medication(s)/assess compliance: Ordered Assess for exacerbation of medical condition, instruct patient/caregivers on signs and symptoms to report for early detection: Ordered Physical Therapist: Check all that apply Increase strength & endurance for safe mobility at home: Ordered To design/establish home maintenance program: Ordered Fall reduction therapy program for patient with history of frequent falls: Ordered Home safety evaluation and teaching/gait training including stair management (if applicable): Ordered Occupational Therapist: Evaluate and treat for patient unable to perform ADL/IADL/self-care: Ordered Upper extremity strengthening, range and motion: Ordered Long [employer] Machine Helper: Assist with community resources: Ordered Home Bound Status Requires the aid of supportive device (check all that apply): Wheelchair Describe why leaving home would require a considerable and taxing effort: Side effects from pain medication (sedation/drowsiness), Requires frequent rest periods and Safety Concerns: describe (non-weight bearing status on her right foot, high risk of falls and reinjury to the right ankle) Encounter Date and Reason: I certify that a FTF encounter for this patient was performed on August 29, 2023 and that such encounter was related to the primary reason the patient requires home health services. The encounter was conducted in the following manner: * By me as the certifying physician, AIRPORT ATTENDANT, PA or * By an inpatient physician, AIRPORT ATTENDANT or PA during an inpatient stay who communicated findings to me, Certification And Authentication I certify that I composed the above information based on my clinical judgment relating to this patient's medical condition and, if applicable, clinical findings communicated to me by the NPP or inpatient physician who performed the FTF encounter. Name of Provider that will be monitoring home health services: Denise Nugent
--- NOTE | 2023-08-29 17:17 | PDOC.CMDIS ---
Date of service: 08/29/23 Time of Service: 17:18 LACE Index Scoring Tool Questions: Length of Stay (in days): 3 Was the patient admitted via the E.D.?: Yes E.D. Visits: 1 Answers: Total Score: 7 Risk of Readmission: Low Risk Care Management Discharge Plan Reason for Hospitalization: Closed trimalleolar fracture of R ankle Discharge Plan: Gladys will discharge to her sister's home, [facility] in [place] with new home health orders. CM communicated address to Home Health and faxed home health orders. CM also coordinated lift assist through [employer] and advised [facility] to retrieve medications from pharmacy prior to closing time. Gladys will follow up with community providers and plan of care as prescribed. She had a FWW and did not require one from PT. She will transport via private vehicle with [facility], [employer] will provide lift assist upon arrival. Patient/Family Education Needs: Review discharge instructions, discuss Ask Me Three. Services Needed at Discharge: Home Health Care Services and Transportation (Lift Assist [employer] )
== END 2023-08-29 14:36 | disposition home health service (06) | DRG 493 ==
LOC: ER 10:49 → SUR 14:06 → ICU 19:10 → MS 08-27 08:43 → ER 08-27 08:48 → SUR 08-27 08:48 → ICU 08-27 08:53 → MS 08-27 08:53
PROVIDERS: Nurse Anesthetist, Certified Registered; Admitting Provider Internal Medicine; Emergency Provider Registered Nurse Emergency; PCP Nurse Practitioner Family; Visit Provider Student in an Organized Health Care Education/Training Program
PROC: 0QSJ04Z Reposition Right Fibula with Internal Fixation Device, Open Approach (ICD-10-PCS; CPT 27829; principal; 2023-08-26 10:15)
DX: S82.851A Displaced trimalleolar fracture of right lower leg, initial encounter for closed fracture (principal); I47.10 Supraventricular tachycardia, unspecified; Z68.41 Body mass index [BMI] 40.0-44.9, adult; S93.431A Sprain of tibiofibular ligament of right ankle, initial encounter; W00.0XXA Fall on same level due to ice and snow, initial encounter; Z79.84 Long term (current) use of oral hypoglycemic drugs; Z79.82 Long term (current) use of aspirin; K58.1 Irritable bowel syndrome with constipation; M54.30 Sciatica, unspecified side; E66.01 Morbid (severe) obesity due to excess calories; K21.9 Gastro-esophageal reflux disease without esophagitis; E78.5 Hyperlipidemia, unspecified; M51.36 Other intervertebral disc degeneration, lumbar region; G57.13 Meralgia paresthetica, bilateral lower limbs; L30.4 Erythema intertrigo; F41.8 Other specified anxiety disorders; E88.810 Metabolic syndrome; G56.03 Carpal tunnel syndrome, bilateral upper limbs; I83.893 Varicose veins of bilateral lower extremities with other complications; M70.61 Trochanteric bursitis, right hip; Z86.711 Personal history of pulmonary embolism; Z79.01 Long term (current) use of anticoagulants
CPT/HCPCS: 27829; 27822; 00123; 36415; 36416; 80048; 82962; 87635; 97110; 97162; 97530; 99285; 73590; 73600; 73610; 83036; 83735; 85025; 99223; 99231; 99232; 99239; J0131; J0690; J1100; J2001; J2405; J2704; J3010

== ENCOUNTER 2023-09-06 06:58 | Outpatient (CLI) | payer BC, MEDICARE, SELFPAY ==
--- NOTE | 2023-09-06 12:21 | W.CARDEVENT ---
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 Patient was monitored for 29 days and 16 hours Rhythm throughout was sinus. Average heart rate was 73. Minimum was 58, maximum 138 There were no significant atrial or ventricular dysrhythmias recorded. Specifically there was no atrial fibrillation, no high-grade AV block, no pauses greater than 3 seconds There were no apparent patient symptoms
== END 2023-09-06 06:59 | disposition home or self-care (01) ==
LOC: CARDOPNVT 06:58
PROVIDERS: PCP Nurse Practitioner Family; Visit Provider Internal Medicine Cardiovascular Disease
DX: I26.99 Other pulmonary embolism without acute cor pulmonale (principal)

== ENCOUNTER 2023-09-07 15:32 | Outpatient (CLI) | payer BC, MEDICARE, SELFPAY ==
--- NOTE | 2023-09-07 14:45 | DI.RAD_ITS ---
Exam(s) XR ANKLE RT COMPLETE EXAM: XR ANKLE RT COMPLETE CLINICAL HISTORY: ankle /u. TECHNIQUE: 2D digital imaging was performed of the right ankle. Three images were obtained. AP, la teral and oblique views were obtained. COMPARISON: CR,XR XR ANKLE RT COMPLETE from 08/28/2023 FINDINGS: The cast has been removed. BONES: There are stable findings of an ORIF of the distal right tibial and fibular fractures. No thierry nge in alignment of the orthopedic hardware fracture components is seen. No new fracture or dislocat ion is present. There is a nondisplaced posterior malleolar fracture. No bony destructive lesion is seen. There is a plantar calcaneal spur. There is an enthesophyte at the posterior calcaneus. JOINTS: The ankle mortise is normally aligned. SOFT TISSUE: Normal. IMPRESSION: Stable ORIF of the right ankle. DATA REPOSITORY: RADIATION DOSE DELIVERED:
== END 2023-09-07 15:33 | disposition home or self-care (01) ==
LOC: DIORS 15:33
PROVIDERS: PCP Nurse Practitioner Family; Visit Provider Student in an Organized Health Care Education/Training Program
DX: M25.571 Pain in right ankle and joints of right foot (principal); Z98.890 Other specified postprocedural states
CPT/HCPCS: 73610

== ENCOUNTER 2023-10-06 09:48 | Outpatient (CLI) | payer BC, MEDICARE, SELFPAY ==
--- NOTE | 2023-10-06 09:45 | DI.RAD_ITS ---
Exam(s) XR ANKLE RT COMPLETE EXAM: XR ANKLE RT COMPLETE CLINICAL HISTORY: F/U ANKLE ORIF. TECHNIQUE: 2D digital imaging was performed. COMPARISON: CR XR ANKLE RT COMPLETE from 09/07/2023 FINDINGS: 3 views Hardware comprised of lateral fixation plate in the distal fibula, 2 syndesmotic screws, and 2 screws across the medial malleolus are again noted and appears stable. Fracture line in the fibula still v isible. No further displacement. No hardware loosening nor evidence of osteomyelitis. On the later al view the posterior malleolus fracture exhibits some healing without displacement when compared to the prior study. Medial malleolus fracture site also appears satisfactory with some further healing and less visibility of the fracture line at this level. The talar dome appears unremarkable. There is no widening of the ankle mortise. A large inferior calcaneal spur is again noted. No evidence of osteomyelitis. IMPRESSION: As above. DATA REPOSITORY: RADIATION DOSE DELIVERED:
== END 2023-10-06 09:49 | disposition home or self-care (01) ==
LOC: DIORS 09:49
PROVIDERS: PCP Nurse Practitioner Family; Visit Provider Student in an Organized Health Care Education/Training Program
DX: S82.851D Displaced trimalleolar fracture of right lower leg, subsequent encounter for closed fracture with routine healing (principal); X58.XXXD Exposure to other specified factors, subsequent encounter; Z98.890 Other specified postprocedural states
CPT/HCPCS: 73610

== ENCOUNTER 2023-11-17 11:54 | Outpatient (CLI) | payer BC, MEDICARE, SELFPAY ==
--- NOTE | 2023-11-17 10:30 | DI.RAD_ITS ---
Exam(s) XR ANKLE RT COMPLETE EXAM: XR ANKLE RT COMPLETE CLINICAL HISTORY: F/U FRACTURE. TECHNIQUE: 2D digital imaging was performed. Three images were obtained. AP, lateral and oblique vi ews were obtained. COMPARISON: CR XR ANKLE RT COMPLETE from 10/06/2023 FINDINGS: BONES: There are stable post operative changes present. No new fracture or dislocation. Plantar calc aneal spur. There is an enthesophyte at the posterior calcaneus. The bones are mildly osteopenic dexter ggesting decreased use. JOINTS: The joint spaces are well maintained. SOFT TISSUE: Soft tissue swelling. IMPRESSION: Stable postoperative changes. DATA REPOSITORY: RADIATION DOSE DELIVERED:
== END 2023-11-17 11:55 | disposition home or self-care (01) ==
LOC: DIORS 11:56
PROVIDERS: PCP Nurse Practitioner Family; Visit Provider Student in an Organized Health Care Education/Training Program
DX: S82.851D Displaced trimalleolar fracture of right lower leg, subsequent encounter for closed fracture with routine healing (principal); X58.XXXD Exposure to other specified factors, subsequent encounter; M77.31 Calcaneal spur, right foot
CPT/HCPCS: 73610

== ENCOUNTER 2023-12-15 12:14 | Outpatient (REF) | payer BC, SELFPAY ==
[2023-12-15 15:43] LABS: Magnesium 1.3 mg/dL (1.8-2.4)
[2023-12-15 16:09] LABS: Hemoglobin A1C 6.1 % (<5.7)
== END 2023-12-15 12:15 | disposition home or self-care (01) ==
LOC: NCHCN 12:14
PROVIDERS: PCP Nurse Practitioner Family; Visit Provider Nurse Practitioner Family
DX: R73.03 Prediabetes (principal); K58.9 Irritable bowel syndrome, unspecified
CPT/HCPCS: 83036; 83735

== ENCOUNTER 2024-01-12 14:46 | Outpatient (CLI) | payer BC, SELFPAY ==
--- NOTE | 2024-01-12 07:45 | DI.RAD_ITS ---
Exam(s) XR ANKLE RT COMPLETE EXAM: XR ANKLE RT COMPLETE CLINICAL HISTORY: F/U FRACTURE. TECHNIQUE: 2D digital imaging was performed. Three views. COMPARISON: CR XR ANKLE RT COMPLETE from 11/17/2023 FINDINGS: BONES: No change in fracture or hardware alignment. Fracture lines remain visible. No acute fractur e is present. No bony destructive lesion is seen. Heel spurs again noted. JOINTS: The ankle mortise is normally aligned. SOFT TISSUE: Swelling. IMPRESSION: Stable fracture and hardware alignment. DATA REPOSITORY: RADIATION DOSE DELIVERED:
== END 2024-01-12 14:47 | disposition home or self-care (01) ==
LOC: DIORS 14:46
PROVIDERS: PCP Nurse Practitioner Family; Visit Provider Student in an Organized Health Care Education/Training Program
DX: S82.851D Displaced trimalleolar fracture of right lower leg, subsequent encounter for closed fracture with routine healing (principal); X58.XXXD Exposure to other specified factors, subsequent encounter
CPT/HCPCS: 73610

== ENCOUNTER 2024-01-21 12:44 | Outpatient (REF) | payer BC, MEDICARE, SELFPAY ==
[2024-01-21 15:06] LABS: Bilirubin Negative (Negative); Blood Trace-intact (Negative); Clarity Sl Cloudy (Clear); Glucose Negative (Negative); Ketones Negative (Negative); Leukocyte Esterase Negative (Negative); Nitrite Negative (Negative); Specific Gravity 1.015 (1.005-1.025); pH 8.5 (5-8)
[2024-01-21 15:15] LABS: Bacteria Rare HPF (Negative); C & S Indicated? No; Casts Negative LPF (Negative); Crystals Negative HPF (Negative); Epithelial Cells Rare HPF (Negative); Mucus Negative (Negative); RBC 0-2 HPF (0-2); WBC 0-2 HPF (0-5)
[2024-01-21 15:53] LABS: COMMENT (LAB VIEW ONLY) 139.26 mg/dL
[2024-01-21 16:13] LABS: ALT 31 U/L (14-59); AST 22 U/L (15-37); Albumin 3.6 g/dL (3.4-5.0); Alkaline Phosphatase 100 U/L (46-116); Anion Gap 10.7 mmol/L (3-11); BUN 14 mg/dL (7-18); Bilirubin, Total 0.8 mg/dL (0.2-1.0); CO2 29.3 mmol/L (21.0-32.0); CREATININE 0.8 mg/dL (0.55-1.02); Calcium 9.1 mg/dL (8.5-10.1); Chloride 105 mmol/L (98-107); Estimated GFR 80.71 (mL/min/1.73m2); Glucose 120 mg/dL (74-106); Magnesium 1.6 mg/dL (1.8-2.4); Potassium 4.3 mmol/L (3.5-5.1); Sodium 145 mmol/L (136-145); Vitamin B12 284 pg/mL (193-986)
[2024-01-21 17:06] LABS: Vitamin D 25 Total 16.8 ng/mL (30-100)
== END 2024-01-21 12:45 | disposition home or self-care (01) ==
LOC: NCHCN 12:44
PROVIDERS: PCP Nurse Practitioner Family; Referring Provider Nurse Practitioner Family; Visit Provider Nurse Practitioner Family
DX: I10 Essential (primary) hypertension (principal); R73.03 Prediabetes; E88.810 Metabolic syndrome; M85.88 Other specified disorders of bone density and structure, other site; R20.2 Paresthesia of skin
CPT/HCPCS: 80053; 82306; 81003; 81015; 82043; 82570; 82607; 83735

== ENCOUNTER 2024-02-10 10:54 | Day surgery (SDC) | payer BC, MEDICARE, SELFPAY ==
--- NOTE | 2024-02-10 07:16 | W.PM.DSUDISC ---
Date of service: 02/10/24 Time of Service: 15:00 Discharge Plan Disposition Patient Disposition: Home Condition: Stable Discharge Details Attending Provider: James Cloud Primary Care Provider: Denise Nugent Home Meds and New Rx's Prescriptions: Continued apixaban 5 mg tablet 5 mg PO BID atorvastatin 40 MG tablet 40 mg PO DAILY hydrochlorothiazide 12.5 mg capsule 12.5 mg PO DAILY lidocaine 5 % ointment 1 applic topical TID PRN metformin 500 mg tablet 500 mg PO TID omeprazole 20 mg Capsule,Delayed Release(Dr/Ec) 20 mg PO BID propranolol 20 mg Tablet 20 mg PO BID Slow-Mag 71.5 mg tablet,delayed release (DR/EC) 143 mg PO DAILY Patient Comments: Take 2 tablet by mouth once a day Discharge Instructions Additional Instructions: Surgery: Right ankle removal of hardware (2 syndesmotic screws) Activity: Weightbearing as tolerated. Recommend elevation to minimize swelling and discomfort for 2-3 weeks. Gradually increase activities. Prescriptions: None. You may use [id number] acetaminophen/Tylenol for mild to moderate pain. Resume apixaban tomorrow morning. Dressings: Leave dressing in place for 5 days. May then remove and leave open to air or cover incision with Band-Aid. May shower after 7 days. Follow-up: 10-[address] Cloud You may take off the leg compression stockings this evening at home. You may also leave them on a few days longer if you have a history of leg swelling or edema. Let us know right away if you develop any redness, drainage, fevers, chest pain, or trouble breathing. Do not drink alcohol or drive for at least 24 hours after anesthesia. Please call the office during business hours with any questions or concerns. Stand Alone Forms: Anesthesia Discharge Inst., Abhi Deleon (DSU) Discharge Orders Discharge Orders: Discharge Order (Routine); Ordered 02/10/24 Ordered By: Crow Macario DS: Diagnosis Discharge Diagnosis (1) Painful orthopaedic hardware: Status: Acute (2) Closed trimalleolar fracture of right ankle: Status: Acute
--- NOTE | 2024-02-10 07:21 | ROE_ITS ---
Date of service: 02/10/24 Time of Service: 13:30 Operative Note Operative Note DATE OF PROCEDURE: 02/10/24 PRE-OP DIAGNOSIS: Right healed trimalleolar ankle fracture with syndesmotic screws POST-OP DIAGNOSIS: same PROCEDURE: 1. Removal of syndesmotic screws, CPT #19776 SURGEON: James Cloud GEOSCIENCES PROFESSOR: None None ANESTHESIA TYPE: Local By Surgeon and MAC Refer to Anesthesia Record ESTIMATED BLOOD LOSS: 3 TOURNIQUET TIME: 0 COMPLICATIONS: None Patient was transported to: same day Patient's condition: stable Indications: Please see complete medical record for details. Findings: Long distal fibula fracture with poor bone, soft bone, and comminution proximally and distally. Anterior syndesmosis disruption from the fracture fragments about the fibula. Comminuted soft medial malleolus fracture. Procedure Description: In the operating room, general anesthesia was induced. The patient was positioned supine on the operating room table. All bony prominences were well- padded. Preoperative antibiotics were administered. The right ankle was prepped and draped in the usual sterile fashion. The correct patient, procedure, and side of the procedure were all verified prior to incision. The lateral ankle surgical site was preinjected with 20 cc of 0.25% bupivacaine epinephrine. A small incision full-thickness through the prior incision down to the screw heads was used with fluoroscopic assistance, the screw heads exposed, and readily removed in entirety without difficulty. Fluoroscopic images confirmed healed ankle fracture and stressed extra rotation x-rays confirm healed and stable syndesmosis. Small wound was copiously irrigated normal saline. Subcutaneous tissue closed with 2-0 Monocryl buried interrupted. Skin closed with 3-0 Monocryl subcuticular running. Skin glue applied over the incision followed by a Mepilex Band-Aid in the foot and ankle were wrapped gently in an Rakan bandage. The patient tolerated the procedure well without complication.
[2024-02-10 11:15] VITALS: PULSE 77; RESP 16; TEMP 36; O2SAT 98
[2024-02-10] MEDS: Lactated Ringers 1,000 ML 30 ML IV (11:34)
[2024-02-10 11:43] VITALS: BP 149/75; PULSE 73; RESP 16; TEMP 36.6; O2SAT 99
--- NOTE | 2024-02-10 12:35 | W.ANESPRE ---
General Info Date of Service Date Performed: 02/10/24 Height: 5 ft 2 in Weight: 95.1 kg Body Mass Index (BMI): 38.3 Surgical Procedure: Operation Date: 02/10/24 12:25 Proposed Procedure Side Surgeon p Ankle Hardware Removal Right James Cloud MD Meds Allergies and Home Medications Allergies Allergy/AdvReac Type Severity Reaction Status Date / Time ranitidine HCl [From Zantac] Allergy Intermediate Skin Rash Verified 02/10/24 11:11 Home Medication Medication Instructions Recorded atorvastatin 40 mg tablet 40 mg PO DAILY 04/26/18 omeprazole 20 mg capsule,delayed 20 mg PO BID 12/15/19 release propranolol 20 mg tablet 20 mg PO BID 12/15/19 hydrochlorothiazide 12.5 mg capsule 12.5 mg PO DAILY 12/11/21 lidocaine 5 % topical ointment 1 applic topical TID PRN 12/11/21 magnesium chloride 71.5 mg 143 mg PO DAILY 08/26/23 (magnesium chloride) tablet,delayed release (Slow-Mag) apixaban 5 mg tablet 5 mg PO BID 01/12/24 metformin 500 mg tablet 500 mg PO TID 01/12/24 Current Visit Medications: Current Medications Generic Name Dose Route Start Last Admin Trade Name Freq PRN Reason Stop Dose Admin Ringer's Solution 1,000 mls @ 30 mls/hr 02/10/24 06:00 02/10/24 11:34 IV 03/09/24 23:59 30 mls/hr INFUSION ALEJO Administration Cefazolin Sodium/Dextrose 2 gm in 50 mls @ 100 mls/hr 02/10/24 06:00 Ancef Duplex IVPB 03/09/24 23:59 PREOP ALEJO IV Miscellaneous Supplies 1 each 02/10/24 06:00 Iv Access IV 03/09/24 23:59 DIRECTED ALEJO Sodium Chloride 0 ml 02/10/24 06:00 Normal Saline Flush 10 Ml Syr IV 03/09/24 23:59 PRN PRN Sodium Chloride 0 ml 02/10/24 06:00 Normal Saline 10 Ml Vial IJ 03/09/24 23:59 DIRECTED PRN Sterile Water 0 ml 02/10/24 06:00 Water,Injection,Sterile 10 Ml Vial IJ 03/09/24 23:59 DIRECTED PRN PFSH Active Problems Active Problems: Problem Status Onset Code Syndesmotic disruption of right ankle S93.431A Painful orthopaedic hardware T84.84XA Prediabetes R73.03 Pulmonary embolism on right I26.99 Closed trimalleolar fracture of right ankle 08/26/23 S82.851A Rectal bleeding K62.5 Chronic constipation K59.09 Screening for colon cancer Z12.11 IBS (irritable bowel syndrome) K58.9 Skin nodule R22.9 Obesity E66.9 Sebaceous cyst L72.3 Skin lesion L98.9 Medical History Medical History Tinnitus of both ears Varicose veins of both lower extremities Skin mole Paresthesia of both legs Sciatica Carpal tunnel syndrome on both sides Peripheral edema Morbid obesity Metabolic syndrome Lymphadenopathy Anxiety and depression Headache SVT (supraventricular tachycardia) Chest pain Per pt. states she had it worked up-WNL Intertrigo Snoring Bad odor of urine Dyspepsia Uterine fibroid Postmenopausal bleeding (11/15/13) Meralgia paresthetica of both lower extremities (06/01/18) Chronic bilateral low back pain without sciatica (06/01/18) Internal derangement of right knee Trochanteric bursitis, right hip Degenerative disc disease, lumbar Hypertension GERD (gastroesophageal reflux disease) Hyperlipidemia Knee pain, right Medical History Comments:: 05/10/23 pt reports she has difficulty laying flat and on her sides, pt normally sleeps in a recliner. Surgical History Surgical History History of colonoscopy (~04/2023) History of cardiac catheterization 5+ years ago per pt came back WNL Tobacco Smoking/Tobacco Use Status: Never Alcohol Alcohol Intake: current Alcohol intake frequency: holidays/special occasions only Substance Use Substance use: Never Substance use type: does not use Vital Signs and Lab Results Vital Signs Most Recent Vital Signs in EMR: Most Recent Vital Signs Temp Pulse Resp BP Pulse Ox 36.6 C 73 16 149/75 H 99 02/10/24 11:43 02/10/24 11:43 02/10/24 11:43 02/10/24 11:43 02/10/24 11:43 Point of Care Results Point of Care Results: Finger Stick Blood Glucose 110 02/10/24 11:23 Lab Results Blood Type / Crossmatch: No Data to Display Complete Blood Count: No Data to Display Complete Metabolic Panel: Sodium 145 mmol/L (136-145) 01/21/24 07:45 Potassium 4.3 mmol/L (3.5-5.1) 01/21/24 07:45 Chloride 105 mmol/L (98-107) 01/21/24 07:45 Carbon Dioxide 29.3 mmol/L (21.0-32.0) 01/21/24 07:45 BUN 14 mg/dL (7-18) 01/21/24 07:45 Creatinine 0.8 mg/dL (0.55-1.02) 01/21/24 07:45 Est GFR (CKD-EPI 2020) 80.71 (mL/min/1.73m2) 01/21/24 07:45 Magnesium 1.6 mg/dL (1.8-2.4) L 01/21/24 07:45 Calcium 9.1 mg/dL (8.5-10.1) 01/21/24 07:45 Albumin 3.6 g/dL (3.4-5.0) 01/21/24 07:45 Glucose 120 mg/dL (74-106) H 01/21/24 07:45 Liver Function Panel: Alanine Aminotransferase (ALT/SGPT) 31 U/L (14-59) 01/21/24 07:45 Aspartate Amino Transf (AST/SGOT) 22 U/L (15-37) 01/21/24 07:45 Coagulation Panel: No Data to Display Cardiac Panel: No Data to Display Arterial Blood Gas: No Data to Display Venous Blood Gas: No Data to Display Pancreas Panel: No Data to Display Thyroid Panel: No Data to Display Infectious Disease: No Data to Display Blood Cultures: No Data to Display Toxicology Panel: No Data to Display Imaging and Studies Imaging and Studies Study information below may be from another EMR and interpreted by another provider. Please see original notes in EMR for more complete details. EKG Summary: EKG PATIENT NAME: Gladys Vyas UNIT #: [id number] ORDERING PROVIDER: Sky Powell M.D. PRIMARY CARE PROVIDER: HAYLEY HARRISON APRN DATE/TIME OF SERVICE: 07/12/23 0951 : 1955 PERFORMING LOCATION: ER APPROVED REPORT Exam: Resting ECG Reason for Exam: chest pain Patient Location: E HR:100 bpm ECG Measurements Heart Rate 100 AXIS NM 196 P 50 QRSd 79 QRS 39 QT 339 T-60 QTc 439 Conclusion Sinus tachycardia...rate> 99 Narrow complex sinus tachycardia at a rate of 100. Normal axis. Intervals within normal limits. Mild ST segment depression V3 through V5. T wave inversion in lead III. No acute injury pattern. No prior for comparison. <Electronically signed by Sky Powell M.D. in OV> E-Sign Date: 07/12/23 E-Sign Time: 1004 ADDENDUM APPROVED REPORT Exam: Resting ECG Reason for Exam: chest pain Patient Location: E HR:100 bpm ECG Measurements Heart Rate 100 AXIS NM 196 P 50 QRSd 79 QRS 39 QT 339 T-60 QTc 439 Conclusion Sinus tachycardia...rate> 99 Narrow complex sinus tachycardia at a rate of 100. Normal axis. Intervals within normal limits. Mild ST segment depression V3 through V5. T wave inversion in lead III. No acute injury pattern. No prior for comparison. I have reviewed and I agree with the emergency room physician's ECG interpretation. Electronically signed by: <Electronically signed by Minda Ashley M.D. in OV> 07/12/23 1027 Cosigned by: Echocardiogram Summary: Patient Name: Gladys Vyas Unit #: [id number] Loc: DI Ordering Provider: RaffiHayley Status: REG CLI Primary Care Provider: Hayley Harrison Date of Exam: 07/30/23 Sex: F Admission Date: 07/30/23 : 1955 Age: 67 APPROVED REPORT EXAM: Comprehensive 2D, Doppler, and color-flow Echocardiogram Patient Location: Out-Patient Assembly Stock Supervisor: Halley Mello RDCS (AE) Indications: Pulmonary embolism Other Information Study Quality: Adequate Conclusion Normal left ventricular wall thickness and chamber size. Ejection fraction is 55%. Wall motion is normal Normal right ventricular size and systolic function Both atria are normal in size There is no structural or hemodynamically significant valvular disease Estimated right ventricular systolic pressure is 22 mmHg Wall motion Left Ventricle The left ventricle is normal size. The left ventricular systolic function is normal. The left ventricular ejection fraction is within the normal range. There is normal left ventricular wall thickness. There is normal LV segmental wall motion. There is no ventricular septal defect visualized. LVEF is 55%. Right Ventricle The right ventricle is normal size. The right ventricular systolic function is normal. Atria The left atrium size is normal. The right atrium size is normal. The interatrial septum is intact with no evidence for an atrial septal defect. Aortic Valve The aortic valve is normal in structure. There is no aortic valvular stenosis. No aortic regurgitation is present. Mitral Valve The mitral valve is normal in structure. No evidence of mitral valve stenosis. Mild mitral regurgitation. Tricuspid Valve The tricuspid valve is normal in structure. There is no tricuspid valve stenosis. Trace tricuspid regurgitation. The RVSP is 22.2mmHg. Pulmonic Valve The pulmonary valve is normal in structure. There is no pulmonic valvular stenosis. Trace pulmonic regurgitation. Great Vessels The aortic root is normal in size. The ascending aorta is normal in size. Aortic arch is not well visualized. IVC is normal in size and collapses >50% with inspiration. Pericardium There is no pericardial effusion. 2D Dimensions IVSD d PLAX 0.78 cm F: 0.6-1.0Ao Root d 2.73 cm F: 2.7 - 3.3 LVPW d PLAX 0.93 cm F: 0.6 - 1.0Ao Asc Diam d 2.82 cm F: 2.3 - 3.1 LVID d PLAX 4.58 cm F: 3.8 - 5.2 LVDs 3.33 cm F: 2.2 - 3.5 LV EF Teichholz 53.3 % FS27.34 % LV EDV (Teich)96.2 mL LV ESV (Teich)45.0 mL M-Mode TAPSE 3.15 cm (M/F) >1.7 Auto EF LV EDV A4C99.1 mLLV EDV A2C97.5 mLLV EDV BP99.5 mL LV ESV A4C47.8 mLLV ESV A2C44.1 mLLV ESV BP46.7 mL LVEF(%) A4C51.7 %LVEF(%) A2C54.8 %LVEF(%) BP53.1 % LV SV A4C51.3 mlLV SV A2C53.4 mlLV SV BP52.8 ml LV CO A4C3.2 L/minLV CO A2C3.4 L/minLV CO BP3.3 L/min HR A4C63.38 BPMHR A2C64.52 BPMLV EDV Index (BP) LA Volume LA Length A4C4.8 cmLA Length A2C5.4 cm LA Area A4C s 16.55 cm2LA Area A2C s 13.97 cm2 LA Vol A4C A-L48.13 mLLA Vol A2C A-L30.57 mLLA Vol Biplane A-L40.6 mL LA Vol/BSA A4C A-LLA Vol/BSA A2C A-LLA Vol/BSA BP A-L 20.3 mL/m2 LA Vol A4C MOD45.8 mLLA Vol A2C MOD28.8 mLLA Vol BP MOD38.4 mL RA Volume RA Area A4C13.7 cm2RA ESV A4C (A-L)33.0mLRA Vol/BSA A4C A-L RA Length A4C4.8 cmRA ESV A4C (MOD)31.7mL LV Diastology MV E' medial0.097 (>0.07 m/s)MV E Vmax 0.93 (0.4-1.3 m/s) MV E/E' MED9.56 (<14)MV A Vmax 0.95 (0.4-1.3 m/s) MV E' lateral0.087 (>0.1 m/s)E/A Ratio 1.0 MV E/E' LAT10.67 (<14) MV E' Average0.092 m/s MV E/E'(average)10.09 Aortic Valve AoV Vmax1.25 m/sLVOT Vmax 1.13 m/s AoV Peak Grad6.2 mmHgLVOT Peak Grad 5.1 mmHg AoV Area (Vmax)2.61 xt5PUHP VTI0.232 m AoV VTI0.312 mLVOT Mean Grad 2.5 mmHg AoV Mean Davonte.0.89 m/sLVOT SV 66.84 mL AoV Mean Grad3.6 mmHgLVOT Diam s 1.90 cm AoV Area (VTI)2.14 cm2 Velocity Ratio 0.90 Mitral Valve MV DT 183 (160-240 msec) MV Vmax TIPS 1.02 m/s MV Mean Grad 2.1 (<2mmHg) MV VTI 0.343 m Pulmonary Valve PV Vmax 1.03 (0.5-1.5 m/s)RVOT Vmax 0.63 m/s PV Peak Grad 4.2 mmHgRVOT Peak Gr.1.6 mmHg PV Mean Vel0.65 m/sRVOT VTI0.188 m PV Mean Grad 2.0 mmHgRVOT Mean Gr.1.0 mmHg Tricuspid Valve RA Pressure 3.00 mmHgTR Vmax 2.19 m/s TV S'0.13 m/sTR Peak Grad 19.2 mmHg RVSP (TR) 22.2 mmHg Ordered By: Hayley Harrison CC: Dictated By: Minda Ashley M.D. 07/30/23 1558 <Electronically signed by Minda Ashley M.D. in [facility]> 08/02/23 3828 Transcribed By: Minda Ashley MD 07/30/23 0538 This is privileged, confidential information intended only for the provider named. Any use or distribution by any person other than this provider is strictly prohibited. If you receive this report in error, please notify us immediately at [phone] and return the original report to us at the address above. Thank-you. Other Study Summary:: 2019 lumbar spine mri reviewed and results in chart Anesthesia Assessment and Plan Anesthesia History Personal History: No History of Anesthesia Complications Family History: No Family History of Anesthesia Complications Exercise Tolerance Exercise Tolerance: Metabolic Equivalents>4 Pertinent Negatives Pertinent Negatives: No Symptoms of GERD, No Major Cardiovascular Symptoms or Complaints, No Major Pulmonary Symptoms or Complaints and No History of CVA/TIA Cardiac & Pulmonary Exam Cardiac Exam: Normal S1/S2 Heart Sounds Pulmonary Exam: Clear Bilateral Breath Sounds Implantable Cardiac Device Does patient have a Pacemaker or an ICD?: No Airway Exam Known Difficult Airway: No Mallampati Class: 2 Mouth Opening: Normal (> 3cm) Thyromental Distance: Less than 3 cm Neck Range of Motion: Full ROM Neck Circumference: Normal Teeth Condition: Removable Dentures/Plates Upper (some lower teeth and pt denies any loose) and Removable Dentures/Plates Lower ASA Classification ASA Score: ASA 2 Emergency Case?: No NPO Status NPO Status: NPO Clears >2 hours, Solids >8 hours Anesthesia Plan Resuscitation Status: Full Code Anesthesia Technique: General Anesthesia Airway Planned: Natural Airway Monitors Used: Standard Monitors Preoperative Comments:: discussed pt's hx of PE and higher risk of intraop cardiac events and pt verbalized understanding
[2024-02-10 12:37] VITALS: BMI 38.3
[2024-02-10] MEDS: ceFAZolin 2 GM/50 ML BAG IVPB (13:19)
--- NOTE | 2024-02-10 13:45 | DI.RAD_ITS ---
Exam(s) XR ANKLE RT 2V EXAM: XR ANKLE RT 2V CLINICAL HISTORY: Painful orthopaedic hardware right ankle TECHNIQUE: 2D and realtime digital imaging was performed. CONTRAST MATERIAL: Refer to procedure report. COMPARISON: CR XR ANKLE RT COMPLETE from 01/12/2024 FINDINGS: Fluoroscopy was provided for Dr. Cloud during the performance of a hardware removal. Please refer to the procedure report for complete details. Ka,r=0.19 mGy IMPRESSION: RADIATION DOSE DELIVERED: 0.0 0.0 0
[2024-02-10 14:03] VITALS: BP 110/60; PULSE 98; RESP 18; TEMP 36.4; O2SAT 97
[2024-02-10 14:21] VITALS: BP 125/60; PULSE 61; RESP 18; TEMP 36.6; O2SAT 99
--- NOTE | 2024-02-10 14:30 | W.ANESPOSTOP ---
Postoperative Evaluation Date, Time and Location Date Performed: 02/10/24 Time Performed: 14:21 Patient Location: Day Surgery Unit Vital Signs Most Recent Imported Vital Signs: Most Recent Vital Signs Temp Pulse Resp BP Pulse Ox 36.6 C 61 18 125/60 99 02/10/24 14:21 02/10/24 14:21 02/10/24 14:21 02/10/24 14:21 02/10/24 14:21 Pain Score Most Recent Pain Score: Most Recent Pain Score Pain Level 0 02/10/24 14:21 Assessment Mental Status: Awake (Alert & Oriented to Patient Baseline) Airway and Respiratory Function: Patent airway with normal (patient baseline) respiratory exam Cardiovascular Function: Hemodynamically Stable Hydration Status: Adequately Hydrated Nausea & Vomiting: No Nausea or Vomiting Pain: Pt. Denies Any Pain Peripheral Nerve Block: Patient did not receive a nerve block
== END 2024-02-10 15:17 | disposition home or self-care (01) ==
LOC: SUR 10:54
PROVIDERS: PCP Nurse Practitioner Family; Visit Provider Student in an Organized Health Care Education/Training Program
PROC: (CPT 20680; principal; 2024-02-10 12:15)
DX: T84.84XA Pain due to internal orthopedic prosthetic devices, implants and grafts, initial encounter (principal); S82.851A Displaced trimalleolar fracture of right lower leg, initial encounter for closed fracture
CPT/HCPCS: 20680; 76000; 73600; J0131; J0690; J1100; J1885; J2001; J2405; J2704

== ENCOUNTER → 2024-04-18 01:49 | Outpatient (CLI) | payer BC, MEDICARE, SELFPAY ==
--- NOTE | 2024-04-18 | DI.MAMMO_ITS ---
Exam(s) MAMMO SCREENING EXAM: MAMMO SCREENING CLINICAL HISTORY: Z12.31 Screening mammogram. TECHNIQUE: Bilateral full field digital CC and MLO mammographic images were obtained with 3D tomosyn thesis and utilizing computer aided detection (CAD). COMPARISON: Prior mammograms were reviewed. FINDINGS: There has been no significant change in the appearance and distribution of the fibroglandular tissue. Asymmetric density in the lateral aspect of the left breast is unchanged from 2016 and therefore krystal gn. There are no new spiculated masses nor new malignant appearing microcalcification groups. There is no significant architectural distortion nor skin thickening-retraction. IMPRESSION: No radiographic evidence of malignancy. BI-RADS Category 2 - Benign Findings Breast Density - Category B - Scattered areas of fibroglandular density Breast density Category C or D implies that the patient has dense breast tissue. Dense breast tissue can make it harder to find cancer on a mammogram. Dense breast tissue is also associated with an incr eased risk of breast cancer. This information about the result of the mammogram report was provided to the patient to raise their awareness. Use this report when you speak with the patient about their risks for breast cancer, which includes their family history. At that time, you may recommend additional screening tests (Ultrasoun d or MRI) as these tests may add significant information. A negative radiographic report should not delay biopsy if a dominant or clinically suspicious mass is present. Up to ten percent of cancers are not identified on mammography. A negative report may reinforce clinical impression. Adenosis and dense breasts may obscure an underlying neoplasm. False positive reports average 6 to 10%. Patient will receive a letter notifying them of these results.
== END ==
PROVIDERS: PCP Nurse Practitioner Family; Visit Provider Nurse Practitioner Family
DX: Z12.31 Encounter for screening mammogram for malignant neoplasm of breast (principal); R92.333 Mammographic heterogeneous density, bilateral breasts; R92.323 Mammographic fibroglandular density, bilateral breasts
CPT/HCPCS: 77063; 77067

== ENCOUNTER 2025-02-06 16:11 | Outpatient (REF) | payer MEDICARE, OTHER, SELFPAY ==
[2025-02-06 15:47] LABS: Bilirubin Negative (Negative); Blood Negative (Negative); Clarity Clear (Clear); Glucose Negative (Negative); Ketones Negative (Negative); Leukocyte Esterase Negative (Negative); Nitrite Negative (Negative); Specific Gravity <= 1.005 (1.005-1.025); Urobilinogen 0.2 mg/dL (Up to 0.2)
[2025-02-06 16:03] LABS: Hemoglobin A1C 6.5 % (<5.7)
[2025-02-06 16:35] LABS: Anion Gap 5.5 mmol/L (3-11); BUN 15 mg/dL (7-18); CO2 30.5 mmol/L (21.0-32.0); CREATININE 0.9 mg/dL (0.55-1.02); Calcium 9.2 mg/dL (8.5-10.1); Chloride 106 mmol/L (98-107); Estimated GFR 69.64 (mL/min/1.73m2); Glucose 111 mg/dL (74-106); Magnesium 2.2 mg/dL (1.8-2.4); Potassium 4.2 mmol/L (3.5-5.1); Sodium 142 mmol/L (136-145); Vitamin B12 1263 pg/mL (193-986); Vitamin D 25 Total 31 ng/mL (30-100)
[2025-02-06 17:23] LABS: Microalb ug/mg Crea 7.5 ug/mg Cr
== END 2025-02-06 16:12 | disposition home or self-care (01) ==
LOC: NCHCN 16:11
PROVIDERS: PCP Nurse Practitioner Family; Visit Provider Nurse Practitioner Family
DX: E83.42 Hypomagnesemia (principal); M85.89 Other specified disorders of bone density and structure, multiple sites; I10 Essential (primary) hypertension; R73.03 Prediabetes; R10.13 Epigastric pain
CPT/HCPCS: 80048; 82306; 81003; 82043; 82570; 82607; 83036; 83735

== ENCOUNTER 2025-04-24 01:32 | Outpatient (CLI) | payer OTHER, MEDICARE, SELFPAY ==
--- NOTE | 2025-04-24 07:43 | DI.MAMMO_ITS ---
Exam(s) MAMMO SCREENING EXAM: MAMMO SCREENING CLINICAL HISTORY: SCREENING, Z12.31. TECHNIQUE: Bilateral full field digital CC and MLO mammographic images were obtained with 3D tomosynthesis and utilizing computer aided detection (CAD). COMPARISON: Prior mammograms were reviewed. FINDINGS: There has been no significant change in the appearance and distribution of the fibroglandular tissue. Asymmetric density in the left breast is unchanged from prior mammograms. Also stable appearance of left breast microcalcification group. There are no new spiculated masses nor malignant appearing microcalcification groups in either breast. There is no significant architectural distortion nor skin thickening-retraction. IMPRESSION: Stable benign findings. No radiographic evidence of malignancy. BI-RADS Category 2 - Benign Findings Breast Density - Category B - There are scattered areas of fibroglandular density. Breast density Category C or D implies that the patient has dense breast tissue. Dense breast tissue can make it harder to find cancer on a mammogram. Dense breast tissue is also associated with an increased risk of breast cancer. This information about the result of the mammogram report was provided to the patient to raise their awareness. Use this report when you speak with the patient about their risks for breast cancer, which includes their family history. At that time, you may recommend additional screening tests (Ultrasound or MRI) as these tests may add significant information. A negative radiographic report should not delay biopsy if a dominant or clinically suspicious mass is present. Up to ten percent of cancers are not identified on mammography. A negative report may reinforce clinical impression. Adenosis and dense breasts may obscure an underlying neoplasm. False positive reports average 6 to 10%. Patient will receive a letter notifying them of these results.
== END 2025-04-24 01:52 ==
PROVIDERS: PCP Nurse Practitioner Family; Visit Provider Nurse Practitioner Family
DX: Z12.31 Encounter for screening mammogram for malignant neoplasm of breast (principal); R92.323 Mammographic fibroglandular density, bilateral breasts
CPT/HCPCS: 77063; 77067